=== PATIENT | female | born 1935 | race Caucasian/White ===

== ENCOUNTER 2020-10-22 21:40 | Inpatient (IN) | payer MEDICARE ==
[2020-10-22 22:32] LABS: Basophils % (A) 0 %; Eosinophils # (A) 0.2 k/uL (0-0.7); Eosinophils % (A) 1 %; HCT 44.8 % (34.0-46.0); HGB 14.6 gm/dL (11.4-16.0); Lymphocytes # (A) 1.1 k/uL (1.0-4.8); Lymphocytes % (A) 6 %; MCH 29.7 pg (25.0-35.0); MCHC 32.7 g/dL (31.0-37.0); MCV 90.9 fL (80.0-100.0); Mean Platelet Volume 7.6; Monocytes # (A) 0.3 k/uL (0-1.0); Monocytes % (A) 2 %; Neutrophils # (A) 15.7 k/uL (1.3-7.7); Neutrophils % (A) 91 %; Platelet Count 276 k/uL (150-450); RBC 4.92 m/uL (3.80-5.40); RDW 13.4 % (11.5-15.5); WBC 17.2 k/uL (3.8-10.6)
--- NOTE | 2020-10-22 22:37 | XR ---
EXAMINATION TYPE: XR KUB DATE OF EXAM: 10/22/2020 COMPARISON: NONE HISTORY: Nausea and vomiting TECHNIQUE: Single view FINDINGS: Bowel gas pattern is normal. There is no sign of intestinal obstruction or pneumoperitoneum . Fecal pattern is normal. There is no evidence of a mass. Lung bases are clear. There is thoracolumb ar levoscoliosis. IMPRESSION: Nonacute abdomen.
[2020-10-22 22:42] LABS: Albumin 4.6 g/dL (3.5-5.0); Potassium 4.4 mmol/L (3.5-5.1); Total Bilirubin 0.4 mg/dL (0.2-1.3); Total Protein 7.8 g/dL (6.3-8.2)
[2020-10-22] MEDS ORDERED: ONDANSETRON 4 MG/2 ML VIAL IVP STA (22:58)
[2020-10-22 23:01] LABS: Appearance,Urine Clear (Clear); Bilirubin,Urine Negative (Negative); Blood,Urine Small (Negative); Color,Urine Yellow; Glucose,Urine (UA) Negative (Negative); Hyaline Casts,Urine 4 /lpf (0-2); Ketones,Urine Negative (Negative); Leukocyte Esterase,Urine Small (Negative); Mucus,Urine Rare /hpf; Nitrite,Urine Negative (Negative); Protein,Urine Trace (Negative); RBC,Urine 5 /hpf (0-5); Squamous Epithelial Cell,Urine 1 /hpf (0-4); Urobilinogen,Urine <2.0 mg/dL (<2.0); WBC,Urine 4 /hpf (0-5)
--- NOTE | 2020-10-22 23:39 | ED ---
Abdominal Pain HPI - General Chief Complaint: Abdominal Pain Stated Complaint: Abd Pain Time Seen by Provider: 10/22/20 21:50 Source: patient Mode of arrival: ambulatory Limitations: no limitations - History of Present Illness Initial Comments: This patient is an 85-year-old woman who presents to be evaluated for abdominal pain. The patient states that she had been in her usual state of health until yesterday. She states that she eaten pizza which she usually does not like. Later at night she was feeling some mild discomfort in the epigastric/upper abdominal area. She states that she has been having episodic abdominal pain which is now lower in the abdomen, she indicates the periumbilical area and also to some extent all across the lower abdomen. She did have some nausea and has had some dry heaves. She has not noted a bowel movement or much flatus for past 2 days. No change in urination. MD Complaint: abdominal pain Onset/Timin -: days(s) Location: epigastric Migration to: periumbilical Severity: mild Quality: cramping, fullness Consistency: colicky Improves With: nothing Worsens With: nothing Associated Symptoms: nausea, vomiting - Related Data Home Medications Medication Instructions Recorded Confirmed ALPRAZolam [Xanax] 0.25 mg PO BID PRN 10/22/20 10/22/20 ALPRAZolam [Xanax] 0.25 mg PO HS 10/22/20 10/22/20 Cyanocobalamin [Vitamin B-12] 500 mcg PO HS 10/22/20 10/22/20 Losartan Potassium [Cozaar] 50 mg PO BID 10/22/20 10/22/20 Vitamin C/Biotin [Hair, Skin and 1 tab PO HS 10/22/20 10/22/20 Nails] Allergies Allergy/AdvReac Type Severity Reaction Status Date / Time acetaminophen Allergy Unknown Verified 10/22/20 23:07 alcohol Allergy Rash/Hives Verified 10/22/20 23:07 morphine Allergy Rash/Hives Verified 10/22/20 23:07 propoxyphene [From Darvon] Allergy Unknown Verified 10/22/20 23:07 Review of Systems ROS Statement: Those systems with pertinent positive or pertinent negative responses have been documented in the HPI. ROS Other: All systems not noted in ROS Statement are negative. Constitutional: Denies: fever, chills Respiratory: Denies: cough, dyspnea Cardiovascular: Denies: chest pain, palpitations, edema Gastrointestinal: Reports: as per HPI, abdominal pain, nausea, vomiting, constipation. Denies: diarrhea, melena, hematochezia Genitourinary: Denies: dysuria, hematuria Musculoskeletal: Denies: back pain Skin: Denies: rash Neurological: Denies: headache, weakness, numbness Past Medical History Past Medical History: Hypertension History of Any Multi-Drug Resistant Organisms: None Reported Past Surgical History: No Surgical Hx Reported Past Psychological History: Depression Smoking Status: Never smoker Past Alcohol Use History: None Reported Past Drug Use History: None Reported General Exam Limitations: no limitations General appearance: alert, in no apparent distress Head exam: Present: atraumatic, normocephalic Eye exam: Present: normal appearance. Absent: scleral icterus, conjunctival injection ENT exam: Present: normal oropharynx Respiratory exam: Present: normal lung sounds bilaterally. Absent: respiratory distress, wheezes, rales, rhonchi, stridor Cardiovascular Exam: Present: normal rhythm, tachycardia, systolic murmur. Absent: diastolic murmur, rubs, gallop GI/Abdominal exam: Present: soft, hypoactive bowel sounds. Absent: distended, tenderness, guarding, rebound, rigid, mass, pulsatile mass, hernia Extremities exam: Present: normal inspection, normal capillary refill. Absent: pedal edema, calf tenderness Back exam: Present: normal inspection. Absent: CVA tenderness (R), CVA tenderness (L), vertebral tenderness Neurological exam: Present: alert Skin exam: Present: warm, dry, intact, normal color. Absent: rash Course Vital Signs 10/22/20 10/22/20 21:44 23:49 Temperature 98.0 F Pulse Rate 134 H 117 H Respiratory 18 18 Rate Blood Pressure 164/85 151/74 O2 Sat by Pulse 97 97 Oximetry Medical Decision Making - Lab Data Result diagrams: 10/22/20 22:22 10/22/20 22:22 Lab Results 10/22/20 10/22/20 10/22/20 Range/Units 22:22 22:22 22:22 WBC 17.2 H (3.8-10.6) k/uL RBC 4.92 (3.80-5.40) m/uL Hgb 14.6 (11.4-16.0) gm/dL Hct 44.8 (34.0-46.0) % MCV 90.9 (80.0-100.0) fL MCH 29.7 (25.0-35.0) pg MCHC 32.7 (31.0-37.0) g/dL RDW 13.4 (11.5-15.5) % Plt Count 276 (150-450) k/uL MPV 7.6 Neutrophils % 91 % Lymphocytes % 6 % Monocytes % 2 % Eosinophils % 1 % Basophils % 0 % Neutrophils # 15.7 H (1.3-7.7) k/uL Lymphocytes # 1.1 (1.0-4.8) k/uL Monocytes # 0.3 (0-1.0) k/uL Eosinophils # 0.2 (0-0.7) k/uL Basophils # 0.0 (0-0.2) k/uL Sodium 136 L (137-145) mmol/L Potassium 4.4 (3.5-5.1) mmol/L Chloride 103 (98-107) mmol/L Carbon Dioxide 22 (22-30) mmol/L Anion Gap 11 mmol/L BUN 22 H (7-17) mg/dL Creatinine 0.79 (0.52-1.04) mg/dL Est GFR (CKD-EPI)AfAm 80 (>60 ml/min/1.73 sqM) Est GFR (CKD-EPI)NonAf 69 (>60 ml/min/1.73 sqM) Glucose 152 H (74-99) mg/dL Plasma Lactic Acid Jose 1.4 (0.7-2.0) mmol/L Calcium 10.0 (8.4-10.2) mg/dL Total Bilirubin 0.4 (0.2-1.3) mg/dL AST 30 (14-36) U/L ALT 18 (4-34) U/L Alkaline Phosphatase 68 (38-126) U/L Troponin I (0.000-0.034) ng/mL Total Protein 7.8 (6.3-8.2) g/dL Albumin 4.6 (3.5-5.0) g/dL Amylase 93 (30-110) U/L Lipase 146 (23-300) U/L Urine Color Urine Appearance (Clear) Urine pH (5.0-8.0) Ur Specific Toyah (1.001-1.035) Urine Protein (Negative) Urine Glucose (UA) (Negative) Urine Ketones (Negative) Urine Blood (Negative) Urine Nitrite (Negative) Urine Bilirubin (Negative) Urine Urobilinogen (<2.0) mg/dL Ur Leukocyte Esterase (Negative) Urine RBC (0-5) /hpf Urine WBC (0-5) /hpf Ur Squamous Epith Cells (0-4) /hpf Hyaline Casts (0-2) /lpf Urine Mucus (None) /hpf 10/22/20 10/22/20 Range/Units 22:22 22:54 WBC (3.8-10.6) k/uL RBC (3.80-5.40) m/uL Hgb (11.4-16.0) gm/dL Hct (34.0-46.0) % MCV (80.0-100.0) fL MCH (25.0-35.0) pg MCHC (31.0-37.0) g/dL RDW (11.5-15.5) % Plt Count (150-450) k/uL MPV Neutrophils % % Lymphocytes % % Monocytes % % Eosinophils % % Basophils % % Neutrophils # (1.3-7.7) k/uL Lymphocytes # (1.0-4.8) k/uL Monocytes # (0-1.0) k/uL Eosinophils # (0-0.7) k/uL Basophils # (0-0.2) k/uL Sodium (137-145) mmol/L Potassium (3.5-5.1) mmol/L Chloride (98-107) mmol/L Carbon Dioxide (22-30) mmol/L Anion Gap mmol/L BUN (7-17) mg/dL Creatinine (0.52-1.04) mg/dL Est GFR (CKD-EPI)AfAm (>60 ml/min/1.73 sqM) Est GFR (CKD-EPI)NonAf (>60 ml/min/1.73 sqM) Glucose (74-99) mg/dL Plasma Lactic Acid Jose (0.7-2.0) mmol/L Calcium (8.4-10.2) mg/dL Total Bilirubin (0.2-1.3) mg/dL AST (14-36) U/L ALT (4-34) U/L Alkaline Phosphatase (38-126) U/L Troponin I <0.012 (0.000-0.034) ng/mL Total Protein (6.3-8.2) g/dL Albumin (3.5-5.0) g/dL Amylase (30-110) U/L Lipase (23-300) U/L Urine Color Yellow Urine Appearance Clear (Clear) Urine pH 5.0 (5.0-8.0) Ur Specific Toyah 1.020 (1.001-1.035) Urine Protein Trace H (Negative) Urine Glucose (UA) Negative (Negative) Urine Ketones Negative (Negative) Urine Blood Small H (Negative) Urine Nitrite Negative (Negative) Urine Bilirubin Negative (Negative) Urine Urobilinogen <2.0 (<2.0) mg/dL Ur Leukocyte Esterase Small H (Negative) Urine RBC 5 (0-5) /hpf Urine WBC 4 (0-5) /hpf Ur Squamous Epith Cells 1 (0-4) /hpf Hyaline Casts 4 H (0-2) /lpf Urine Mucus Rare H (None) /hpf - EKG Data -: EKG Interpreted by Ct EKG shows normal: sinus rhythm, axis (Normal), intervals (Normal), QRS complexes (Normal), ST-T waves (Normal) Rate: tachycardia (Rate 117 bpm) Disposition Clinical Impression: Abdominal pain, Partial bowel obstruction Disposition: ADMITTED IP TO THIS HOSP Condition: Fair Is patient prescribed a controlled substance at d/c from ED?: No Referrals: Vidal Beaulieu MD [Primary Care Provider] - 1-2 days
--- NOTE | 2020-10-22 23:56 | CT ---
EXAMINATION TYPE: CT abdomen pelvis w con DATE OF EXAM: 10/22/2020 COMPARISON: None HISTORY: Upper abdominal pain CT DLP: 573.6 mGycm Automated exposure control for dose reduction was used. CONTRAST: Performed with IV Contrast, patient injected with 100 mL of Isovue 300. Images were obtained from the diaphragm to the floor the pelvis with IV contrast. FINDINGS: Lung bases are clear. There is no pleural effusion. Heart size is normal. There is no pericardial eff usion. Liver spleen stomach pancreas appear intact. Bile ducts are not dilated. There is 2 cm densely calcif ied gallstone. There is no adrenal mass. Kidneys show satisfactory contrast opacification. There is no hydronephrosi s. Ureters are not dilated. There is no retroperitoneal adenopathy. Abdominal aorta is atheromatous. Bladder distends smoothly. There is no inguinal hernia. There are multiple dilated fluid-filled loops of small bowel in the mid abdomen. There is free fluid in the pelvis. The terminal ileum is not dila marlen. Appendix is partly filled with air and appears normal. Appendix is posterior and medial. Transit ion point not identified. There is L4-5 and L5-S1 mild subluxation deformity. There is no lumbar compression fracture. There is mild thoracolumbar levoscoliosis. The bony pelvis is intact. IMPRESSION: Cholelithiasis. No dilated ducts. No renal stone or obstruction. Dilated small bowel suggestive of ileus or partial mechanical small bowel obstruction. Transition poi nt not identified. Normal appendix. Mild free fluid in the pelvis.
[2020-10-23] MEDS ORDERED: fentaNYL (PF) 50 MCG/ML 2 ML AMP IV STA (00:04)
[2020-10-23] MEDS ORDERED: NALOXONE 0.4 MG/ML 1 ML VIAL IV PRN (00:17)
[2020-10-23] MEDS ORDERED: SODIUM CHLORIDE 0.9% 1,000 ML IV SCH (00:30)
--- NOTE | 2020-10-23 00:50 | XR ---
EXAM: XR Chest, 1 View CLINICAL HISTORY: ITS.REASON XR Reason: NG placement TECHNIQUE: Frontal view of the chest. COMPARISON: No previous study. FINDINGS: Lungs: Lungs are well aerated. Pleural space: Unremarkable. No pneumothorax. Heart: Cardiomediastinal silhouette is unremarkable. Mediastinum: See above. Bones/joints: Osteopenia. Vasculature: Atherosclerotic disease of the aortic knob. Tubes, lines and devices: NG tube is noted in place with its tip well below the diaphragm. IMPRESSION: NG tube is noted in place and in good position.
[2020-10-23] MEDS ORDERED: fentaNYL (PF) 50 MCG/ML 2 ML AMP IVP PRN (01:09)
[2020-10-23] MEDS: SODIUM CHLORIDE 0.9% 1,000 ML IV SCH ×2 (01:09→11:36)
[2020-10-23] MEDS ORDERED: ONDANSETRON 4 MG/2 ML VIAL IVP PRN (01:31)
--- NOTE | 2020-10-23 01:34 | P.HPIM ---
History of Present Illness H&P Date: 10/23/20 The patient is an 85 yo F with a PMH of HTN who presented to the ED with complaints of abdominal pain with nausea and vomiting. The patient notes that she was in her usual state of health until earlier today when she suddenly developed diffuse abdominal pain, cramping in nature, 8 out of 10, with a ssociated nausea and 5 total episodes of nonbloody vomiting throughout the day. She notes that she has not been able to eat or drink much due to this. Patient reports that she normally has a bowel movement daily and has no prior history of abdominal surgeries. Reports her last bowel movement earlier today which was soft. At time of interview, the patient reported her pain had improved to a 3 o ut of 10. He denied fever, chills, cough, chest pain, shortness of breath. In the emergency room, CT abdomen and pelvis revealed cholelithiasis, with dilated small bowel suggestive of ileus versus partial small bowel obstruction with no transition point identified. EKG reveals sinus tachycardia at 117 bpm. Laboratory evaluation was remarkable for WBC count of 17.2, sodium 136, BUN 22, glucose 152, lactic acid 1.4, and a troponin less than 0.012. Review of Systems Pertinent positives and negatives as discussed in HPI, a complete review of systems was performed and all other systems are negative. Past Medical History Past Medical History: Hypertension History of Any Multi-Drug Resistant Organisms: None Reported Past Surgical History: No Surgical Hx Reported Past Psychological History: Depression Smoking Status: Never smoker Past Alcohol Use History: None Reported Past Drug Use History: None Reported Medications and Allergies Home Medications Medication Instructions Recorded Confirmed Type ALPRAZolam [Xanax] 0.25 mg PO BID PRN 10/22/20 10/22/20 History ALPRAZolam [Xanax] 0.25 mg PO HS 10/22/20 10/22/20 History Cyanocobalamin [Vitamin B-12] 500 mcg PO HS 10/22/20 10/22/20 History Losartan Potassium [Cozaar] 50 mg PO BID 10/22/20 10/22/20 History Vitamin C/Biotin [Hair, Skin and 1 tab PO HS 10/22/20 10/22/20 History Nails] Allergies Allergy/AdvReac Type Severity Reaction Status Date / Time acetaminophen Allergy Unknown Verified 10/22/20 23:07 alcohol Allergy Rash/Hives Verified 10/22/20 23:07 morphine Allergy Rash/Hives Verified 10/22/20 23:07 propoxyphene [From Darvon] Allergy Unknown Verified 10/22/20 23:07 Physical Exam Vitals: Vital Signs Temp Pulse Resp BP Pulse Ox 10/22/20 23:49 117 H 18 151/74 97 10/22/20 21:44 98.0 F 134 H 18 164/85 97 Intake and Output 10/22/20 10/22/20 10/23/20 14:59 22:59 06:59 Other: Weight 46.72 kg General: non toxic, no distress, appears younger than stated age, normal weight, NG tube in place Derm: no unusual rashes/lesions no unusual ecchymoses, warm, dry Head: atraumatic, normocephalic, symmetric Eyes: EOMI, no lid lag, anicteric sclera, pupils equal round reactive to light ENT: Nose and ears atraumatic, no thrush, no pharyngeal erythema Neck: No thyromegaly, no cervical lymphadenopathy, trachea midline, supple Mouth: no lip lesion, mucus membranes moist Cardiovascular: S1S2 reg, no murmur, positive posterior tibial pulse bilateral, no edema, capillary refill less than 2 seconds Lungs: CTA bilateral, no rhonchi, no rales , no accessory muscle use Abdominal: soft, nontender to palpation, no guarding, no appreciable organomegaly, normal bowel sounds Ext: no gross muscle atrophy, muscle strength 5 out of 5 in all 4 extremities grossly, no contractures, Neuro: CN II-XI grossly intact, light touch intact all 4 extremities, finger to nose within normal limits, Psych: Alert, oriented, appropriate affect Results CBC & Chem 7: 10/22/20 22:22 10/22/20 22:22 Labs: Abnormal Lab Results - Last 24 Hours (Table) 10/22/20 10/22/20 10/22/20 Range/Units 22:22 22:22 22:54 WBC 17.2 H (3.8-10.6) k/uL Neutrophils # 15.7 H (1.3-7.7) k/uL Sodium 136 L (137-145) mmol/L BUN 22 H (7-17) mg/dL Glucose 152 H (74-99) mg/dL Urine Protein Trace H (Negative) Urine Blood Small H (Negative) Ur Leukocyte Esterase Small H (Negative) Hyaline Casts 4 H (0-2) /lpf Urine Mucus Rare H (None) /hpf Assessment and Plan Plan: Abdominal pain with nausea vomiting, suspected partial small bowel obstruction -Surgery consulted -Continue with NG tube with suctioning -Nothing by mouth -IV fluids -Pain control -Antiemetics Leukocytosis -Likely secondary to acute stressor -Monitor for now Hyperglycemia -Check A1c Chronic conditions: Hypertension -C/w home meds DVT prophylaxis -Heparin subq The patient is admitted with an anticipated greater than 2 midnight stay for evaluation of abdominal pain CODE STATUS: Full Code Discussed with: Patient Anticipated discharge date: 2-[address]: Home A total of 40 minutes was spent on the care of this complex patient more than 50% of the time was spent in counseling and care coordination.
[2020-10-23] MEDS ORDERED: KETOROLAC 15 MG/ML 1 ML VIAL IVP STA (02:10)
[2020-10-23 06:05] LABS: HCT 42.9 % (34.0-46.0); HGB 14.2 gm/dL (11.4-16.0); MCH 30.1 pg (25.0-35.0); MCHC 33.2 g/dL (31.0-37.0); MCV 90.8 fL (80.0-100.0); Mean Platelet Volume 7.4; Platelet Count 269 k/uL (150-450); RBC 4.73 m/uL (3.80-5.40); WBC 13.6 k/uL (3.8-10.6)
[2020-10-23] MEDS: HEPARIN SODIUM,PORCINE 5,000 UNIT/ML 1 ML VIAL SQ SCH ×3 (07:49→22:43)
[2020-10-23] MEDS: PANTOPRAZOLE 40 MG/10 ML VIAL IV SCH (07:49)
[2020-10-23] MEDS: LOSARTAN 50 MG TAB PO SCH ×2 (07:49→20:07)
--- NOTE | 2020-10-23 10:47 | P.GSCN ---
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 Pain started in the epigastric region but radiated down to the mid abdomen. Pain is mostly gone at this time. Has not required any narcotics. She has had intermittent episodes of constipation over the last 3 years. She was advised after a CAT scan showed a possible bowel obstruction of some type to have a colonoscopy within the last few years but the patient declined. She says she did have a cologuard that was negative. Patient said she ate 2 pieces of pizza and some [employer] cookies which is more than she usually eats. It was after that that her symptoms began. Her white blood cell count on arrival was elevated at 17. Repeat today is 13. She has been tachycardic. She says her heart rate always runs high. EKG showed sinus tachycardia. Lactic acid was normal. CAT scan was reviewed. Patient has segment of small bowel that is dilated. No definite transition point was seen. Ileus versus small bowel obstruction suspected per radiology. Patient with no previous abdominal surgeries. Again states she had a previous CAT scan showing a bowel obstruction of some type. This previous CAT scan was a few years ago at [facility]. Review of Systems The patient denies any acute changes in vision or hearing, no dysphagia or odynophagia, no chest pain or shortness of breath, no dysuria or hematuria, no headache, no runny nose, no rectal bleeding or melena, no unexplained weight loss Past Medical History Past Medical History: Hypertension History of Any Multi-Drug Resistant Organisms: None Reported Past Surgical History: No Surgical Hx Reported Past Psychological History: Depression Smoking Status: Never smoker Past Alcohol Use History: None Reported Past Drug Use History: None Reported Medications and Allergies Home Medications Medication Instructions Recorded Confirmed Type ALPRAZolam [Xanax] 0.25 mg PO BID PRN 10/22/20 10/22/20 History ALPRAZolam [Xanax] 0.25 mg PO HS 10/22/20 10/22/20 History Cyanocobalamin [Vitamin B-12] 500 mcg PO HS 10/22/20 10/22/20 History Losartan Potassium [Cozaar] 50 mg PO BID 10/22/20 10/22/20 History Vitamin C/Biotin [Hair, Skin and 1 tab PO HS 10/22/20 10/22/20 History Nails] Allergies Allergy/AdvReac Type Severity Reaction Status Date / Time acetaminophen Allergy Unknown Verified 10/22/20 23:07 alcohol Allergy Rash/Hives Verified 10/22/20 23:07 morphine Allergy Rash/Hives Verified 10/22/20 23:07 propoxyphene [From Darvon] Allergy Unknown Verified 10/22/20 23:07 Surgical - Exam Vital Signs Temp Pulse Resp BP Pulse Ox 98.0 F 134 H 18 164/85 97 10/22/20 21:44 10/22/20 21:44 10/22/20 21:44 10/22/20 21:44 10/22/20 21:44 Physical exam: General: Well-developed, well-nourished HEENT: Normocephalic, sclerae nonicteric Abdomen: Mild distention, mild diffuse tenderness, no rebound or guarding, bowel sounds present Extremities: No edema Neuro: Alert and oriented Results - Labs 10/23/20 05:49 10/22/20 22:22 Abnormal Lab Results - Last 24 Hours (Table) 10/22/20 10/22/20 10/22/20 Range/Units 22:22 22:22 22:54 WBC 17.2 H (3.8-10.6) k/uL Neutrophils # 15.7 H (1.3-7.7) k/uL Sodium 136 L (137-145) mmol/L BUN 22 H (7-17) mg/dL Glucose 152 H (74-99) mg/dL Urine Protein Trace H (Negative) Urine Blood Small H (Negative) Ur Leukocyte Esterase Small H (Negative) Hyaline Casts 4 H (0-2) /lpf Urine Mucus Rare H (None) /hpf 10/23/20 Range/Units 05:49 WBC 13.6 H (3.8-10.6) k/uL Neutrophils # (1.3-7.7) k/uL Sodium (137-145) mmol/L BUN (7-17) mg/dL Glucose (74-99) mg/dL Urine Protein (Negative) Urine Blood (Negative) Ur Leukocyte Esterase (Negative) Hyaline Casts (0-2) /lpf Urine Mucus (None) /hpf Diabetes panel 10/22/20 Range/Units 22:22 Sodium 136 L (137-145) mmol/L Potassium 4.4 (3.5-5.1) mmol/L Chloride 103 (98-107) mmol/L Carbon Dioxide 22 (22-30) mmol/L BUN 22 H (7-17) mg/dL Creatinine 0.79 (0.52-1.04) mg/dL Glucose 152 H (74-99) mg/dL Calcium 10.0 (8.4-10.2) mg/dL AST 30 (14-36) U/L ALT 18 (4-34) U/L Alkaline Phosphatase 68 (38-126) U/L Total Protein 7.8 (6.3-8.2) g/dL Albumin 4.6 (3.5-5.0) g/dL Calcium panel 10/22/20 Range/Units 22:22 Calcium 10.0 (8.4-10.2) mg/dL Albumin 4.6 (3.5-5.0) g/dL Pituitary panel 10/22/20 Range/Units 22:22 Sodium 136 L (137-145) mmol/L Potassium 4.4 (3.5-5.1) mmol/L Chloride 103 (98-107) mmol/L Carbon Dioxide 22 (22-30) mmol/L BUN 22 H (7-17) mg/dL Creatinine 0.79 (0.52-1.04) mg/dL Glucose 152 H (74-99) mg/dL Calcium 10.0 (8.4-10.2) mg/dL Adrenal panel 10/22/20 Range/Units 22:22 Sodium 136 L (137-145) mmol/L Potassium 4.4 (3.5-5.1) mmol/L Chloride 103 (98-107) mmol/L Carbon Dioxide 22 (22-30) mmol/L BUN 22 H (7-17) mg/dL Creatinine 0.79 (0.52-1.04) mg/dL Glucose 152 H (74-99) mg/dL Calcium 10.0 (8.4-10.2) mg/dL Total Bilirubin 0.4 (0.2-1.3) mg/dL AST 30 (14-36) U/L ALT 18 (4-34) U/L Alkaline Phosphatase 68 (38-126) U/L Total Protein 7.8 (6.3-8.2) g/dL Albumin 4.6 (3.5-5.0) g/dL Assessment and Plan (1) Partial bowel obstruction Narrative/Plan: 85-year-old female with possible PSBO versus ileus. Options of diagnostic laparoscopy followed by possible laparotomy versus observation with small bowel series tomorrow morning reviewed. Patient would like to avoid surgery if at all possible. Case also discussed with the patient's niece who is a nurse that works for [employer]. At this time we'll keep nothing by mouth. Continue nasogastric tube to suction. Begin empiric antibiotics given the leukocytosis. Consider cardiology consultation for persistent tachycardia. We'll order small bowel series for tomorrow. Certainly if bowel obstruction identified given the lack of prior surgeries would recommend laparoscopy versus laparotomy at that time. Patient informed that I will be out of town after today. Will discuss with Dr. Griffith in a.m. Current Visit: Yes Status: Acute Code(s): K56.600 - PARTIAL INTESTINAL OBSTRUCTION, UNSPECIFIED TO CAUSE SNOMED Code(s): [id number]
[2020-10-23 11:18] LABS: African American GFR (CKD) 67.6 (60.0-200.0); Albumin 3.8 g/dL (3.80-4.90); Albumin/Globulin Ratio 1.81 (1.60-3.17); Anion Gap 7.1 mmol/L (4.00-12.00); BUN/Creat Ratio 26.67 Ratio (12.00-20.00); Calcium 8.9 mg/dL (8.7-10.3); Carbon Dioxide 24.9 mmol/L (21.6-31.8); Globulin 2.1 g/dL (1.6-3.3); Non-African American GFR(CKD) 58.3 (60.0-200.0); Potassium 4.4 mmol/L (3.5-5.5); Total Bilirubin 0.4 mg/dL (0.2-1.2); Total Protein 5.9 g/dL (6.2-8.2)
[2020-10-23] MEDS: PIPERACILLIN-TAZOBACTAM 3.375 GM in SODIUM CHLORIDE 0.9% 100 ML IVPB SCH ×2 (11:34→20:07)
--- NOTE | 2020-10-23 12:58 | P.PN ---
Progress Note - Text Progress Note Date: 10/23/20 Hospitalist Interval Note Patient seen and examined at bedside. Had 2 episodes of chest twinges, no palpitation, no shortness of breath, no diaphoresis, no lightheadedness, no dizziness, Vital signs reviewed General: non toxic, no distress, appears at stated age Derm: warm, dry Head: atraumatic, normocephalic, symmetric Eyes: EOMI, no lid lag, anicteric sclera Mouth: no lip lesion, mucus membranes moist Cardiovascular: S1S2 reg, no murmur, positive posterior tibial pulse bilateral, Lungs: Decreased bs bilateral, no rhonchi, no rales , no accessory muscle use Abdominal: soft, + tender to palpation LLQ and RLQ, no guarding, no appreciable organomegaly Ext: no gross muscle atrophy, no edema, no contractures Neuro: CN II-XI grossly intact, no focal neuro deficits Psych: Alert, oriented, appropriate affect Assessment/Plan: 1. SBO- NGT in placed, surgery following 2. Sinus Tachycardia- checked EKG, Tele, Electrolytes normal, continue with IVF, check magnesium level This is an update note for patient , for full note on 10/23/20 see H and P. There is no charge associated with this note.
[2020-10-23] MEDS: KETOROLAC 15 MG/ML 1 ML VIAL IVP PRN ×2 (15:31→22:43)
[2020-10-23] MEDS ORDERED: METOCLOPRAMIDE 5 MG/ML 2 ML VIAL IVP PRN (16:12)
--- NOTE | 2020-10-23 16:12 | P.OP ---
Date of Procedure: 10/23/20 Procedure(s) Performed: PREOPERATIVE DIAGNOSIS: Colonic obstruction POSTOPERATIVE DIAGNOSIS: Same secondary to descending colon constipation PROCEDURE: Partial colectomy with end colostomy, lysis of adhesions SURGEON: Itzel EBL: 50 mL ANESTHESIA: General COMPLICATIONS: None OPERATIVE PROCEDURE: Patient place in the operative table in the supine position. The patient was placed under general anesthesia. The abdomen was prepped and draped in usual sterile fashion. A vertical incision was made encompassing extending from the epigastric region to the supraumbilical location. The fascia was divided as well. No free fluid in the abdomen was seen. The patient had extensive adhesions between the omentum and the abdominal wall in the infraumbilical location that limited our visualization of the abdomen. Careful dissection of the adhesions took place using electrocautery and sharp dissection. There were some adhesions between the bowel loops and the abdominal wall inferiorly as well. Once we had adequate space the Bookwalter retractor was utilized. The transverse colon was distended. The descending colon was followed to a site in the mid descending colon where there was a very hard piece of stool present. This was causing some degree of ischemic change to the colon in that location however no perforation was identified. As I tried to milk this distally we met some resistance and was decided at this time to proceed with partial colectomy. The bowel was divided distal to the obstructed segment using a linear 75 stapler. The splenic flexure was fully mobilized using both electrocautery and blunt dissection and the LigaSure device. The mesentery of the descending colon and splenic flexure region was divided using the LigaSure device. No bleeding was seen along the mesenteric dissection. Once I had enough length on the colon the abdomen was irrigated with saline. No bleeding was seen at that time. A circular incision was made in the left upper abdomen. Dissection through the subcutaneous fat and fascia took place using electrocautery. I bluntly entered the perineal cavity and this was further bluntly opened. The bowel was brought out through this defect in the left midabdomen. The midline fascia was then reapproximated using 3 separate double- stranded #1 PDS sutures. The subcutaneous tissues were irrigated. The subcutaneous tissues were closed using 3-0 Vicryl sutures. The skin was then closed using chris. The ostomy was then addressed. The bowel was divided just above the level of the skin using electrocautery and the LigaSure device. Bleeding was seen from the cut edge. The ostomy was then matured in a [place] fashion using interrupted 3-0 Vicryl sutures. An ostomy appliance was then applied. Sterile dressings were then applied to the midline incision. DISPOSITION: Stable to recovery room. I called the patient's sister Oriana by phone. No answer was obtained. I left a message regarding the surgical procedure with Oriana.
[2020-10-23] MEDS: ALPRAZolam 0.25 MG TAB PO SCH ×2 (20:07→22:44)
[2020-10-23 22:26] LABS: Hemoglobin A1C 5.8 % (4.0-6.0)
[2020-10-24] MEDS: PIPERACILLIN-TAZOBACTAM 3.375 GM in SODIUM CHLORIDE 0.9% 100 ML IVPB SCH ×3 (04:43→22:45)
[2020-10-24] MEDS: SODIUM CHLORIDE 0.9% 1,000 ML IV SCH ×3 (04:43→15:23)
[2020-10-24 06:40] LABS: Basophils # (A) 0.1 k/uL (0-0.2); Basophils % (A) 0 %; Eosinophils # (A) 0.1 k/uL (0-0.7); Eosinophils % (A) 1 %; HCT 42.2 % (34.0-46.0); HGB 13.5 gm/dL (11.4-16.0); Lymphocytes # (A) 1.1 k/uL (1.0-4.8); Lymphocytes % (A) 9 %; MCH 29.8 pg (25.0-35.0); MCHC 32.1 g/dL (31.0-37.0); Mean Platelet Volume 7.9; Monocytes # (A) 0.8 k/uL (0-1.0); Monocytes % (A) 6 %; Neutrophils # (A) 10.5 k/uL (1.3-7.7); Neutrophils % (A) 83 %; Platelet Count 271 k/uL (150-450); RBC 4.54 m/uL (3.80-5.40); RDW 13.4 % (11.5-15.5); WBC 12.6 k/uL (3.8-10.6)
[2020-10-24] MEDS: PANTOPRAZOLE 40 MG/10 ML VIAL IV SCH (07:55)
[2020-10-24] MEDS: LOSARTAN 50 MG TAB PO SCH ×2 (07:55→22:48)
[2020-10-24] MEDS: HEPARIN SODIUM,PORCINE 5,000 UNIT/ML 1 ML VIAL SQ SCH ×3 (07:55→23:44)
[2020-10-24] MEDS: KETOROLAC 15 MG/ML 1 ML VIAL IVP PRN ×2 (11:15→22:46)
--- NOTE | 2020-10-24 14:03 | P.PN ---
Subjective Progress Note Date: 10/24/20 CHIEF COMPLAINT: Abdominal pain HISTORY OF PRESENT ILLNESS: Patient is being followed for ileus versus partial small bowel obstruction. She currently has NG tube in place with 100 mL of greenish output. Patient reports abdominal pain mostly in the middle of her abdomen. She states that the pain is better than it was on admission. However, she is still feeling very distended. She denies any nausea. She denies any bowel movement or passing of gas. Afebrile. WBC 4.6. Small bowel follow- through results are pending. Patient's tachycardia has improved. PHYSICAL EXAM: VITAL SIGNS: Reviewed. GENERAL: Well-developed in no acute distress. HEENT: No sclera icterus. Extraocular movements grossly intact. Moist buccal mucosa. Head is atraumatic, normocephalic. ABDOMEN: Soft. Distended. Tender with palpation of the mid abdomen NEUROLOGIC: Alert and oriented. Cranial nerves II through XII grossly intact. ASSESSMENT: 1. Possible partial small bowel obstruction versus ileus PLAN: -Follow up on results of small bowel follow-through -Continue NG tube for decompression -Continue antibiotics -Continue IV fluids -Continue GI prophylaxis Protonix and DVT prophylaxis subcu heparin Physician Decision Unit Rn note has been reviewed by physician. Signing provider agrees with the documented findings, assessment, and plan of care. Objective - Vital Signs Vital signs: Vital Signs Temp 98.4 F 10/24/20 07:35 Pulse 86 10/24/20 07:35 Resp 16 10/24/20 07:35 BP 135/76 10/24/20 07:35 Pulse Ox 94 L 10/24/20 07:35 Intake & Output 10/23/20 10/24/20 10/24/20 18:59 06:59 18:59 Output Total 100 Balance -100 Output: Gastric Drainage 100 Other: Voiding Method Toilet Toilet # Voids 1 - Labs CBC & Chem 7: 10/24/20 05:39 10/23/20 05:49 Labs: Abnormal Lab Results - Last 24 Hours (Table) 10/24/20 Range/Units 05:39 WBC 12.6 H (3.8-10.6) k/uL Neutrophils # 10.5 H (1.3-7.7) k/uL
--- NOTE | 2020-10-24 21:44 | P.PN ---
Progress Note - Text Progress Note Date: 10/24/20 Presenting complaint: Abdominal pain Interval history: Patient presented 1 day of abdominal pain. Admitted with a diagnosis of partial small bowel obstruction. NG tube was placed. Today-laying in bed. NG tube to suction. Abdominal pain present. Small amount of flatus no fever no chills Review of systems: Was done for constitutional, cardiovascular, GI, pulmonary. relevant finding as above On examination: VITAL SIGNS: 98.4, 86, 16, 135/76, 94% room air GENERAL APPEARANCE: BMI 20.8, laying in bed, NG tube HEENT: Normal external appearance of nose and ear. Oral cavity dry EYES: Pupils equal. Conjunctiva normal. NECK: JVD not raised. Mass not palpable. RESPIRATORY: Respiratory effort normal. Lungs clear to auscultation. CARDIOVASCULAR: First and second sounds normal. No edema. ABDOMEN: Soft. Mild tenderness, bowel sounds sluggish Liver and spleen not palpable.. No mass palpable. PSYCHIATRY: Alert and oriented x3. Mood and affect normal. INVESTIGATIONS, reviewed in the clinical context: White count 2.6 hemoglobin 13.5 potassium 4.4 creatinine 0.9 Small bowel x-ray-small bowel distended Computed tomography scan of the abdomen-generally second-gallstones. Dilated small bowels. Assessment: -Partial small bowel obstruction versus small bowel ileus-NG tube. Slow to respond -Gallstones asymptomatic -Essential hypertension -Anxiety not otherwise specified Plan: She remains in NG tube. IV Zosyn. IV fluids. Care was discussed with the patient. Questions answered. Follow-up with surgery
[2020-10-24] MEDS: ALPRAZolam 0.25 MG TAB PO PRN (22:48)
[2020-10-25] MEDS: SODIUM CHLORIDE 0.9% 1,000 ML IV SCH ×3 (04:23→23:16)
[2020-10-25] MEDS: PIPERACILLIN-TAZOBACTAM 3.375 GM in SODIUM CHLORIDE 0.9% 100 ML IVPB SCH ×3 (04:40→20:32)
[2020-10-25] MEDS: PANTOPRAZOLE 40 MG/10 ML VIAL IV SCH (09:22)
[2020-10-25] MEDS: HEPARIN SODIUM,PORCINE 5,000 UNIT/ML 1 ML VIAL SQ SCH ×3 (09:22→23:53)
[2020-10-25] MEDS: LOSARTAN 50 MG TAB PO SCH ×2 (09:22→20:32)
--- NOTE | 2020-10-25 09:32 | FL ---
EXAMINATION TYPE: FL small bowel follow through DATE OF EXAM: 10/25/2020 CLINICAL HISTORY: 85-year-old female with distention and epigastric pain, rule out small bowel obstru ction. TECHNIQUE: A single contrast small bowel follow through is performed utilizing barium. COMPARISON: Correlation CT 10/22/2020 Total fluoroscopy time: 1 minute 14 seconds. Total images: 20 FINDINGS: Pull Over Machine Operator image of the abdomen shows small bowel loops dilated up to 4.2 cm and possibility of colonic ai r. Degenerated levoconvex scoliosis. An NG tube is present. 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 Some of the proximal most jejunal loops are not significantly dilated. There is progressive distentio n as contrast progresses with dilated loops measuring up to 4.1 cm encountered within 30 minutes of c ontrast administration. Subsequently, diffuse the dilated small bowel loops are encountered measuring up to 4.3 cm. At 23.5 hours, trace contrast has made its way into the right side of the colon. Discrete transition point is difficult to identify. Some possible caliber narrowing at the midline lower abdomen/pelvis o n image page 20. IMPRESSION: 1. Small bowel transit time of 23.5 hours with only minimal contrast making its way into the right si de of the colon and multiple dilated small bowel loops measuring up to 4.3 cm. Findings suggest ongoi ng small bowel obstruction. 2. An area of caliber narrowing along the lower midline abdomen may correspond to the questioned landa sition point on CT.
[2020-10-25 09:44] LABS: Basophils % (A) 0 %; Eosinophils # (A) 0.1 k/uL (0-0.7); Eosinophils % (A) 2 %; HCT 40.2 % (34.0-46.0); HGB 13.2 gm/dL (11.4-16.0); Lymphocytes # (A) 0.9 k/uL (1.0-4.8); Lymphocytes % (A) 11 %; MCH 30.6 pg (25.0-35.0); MCHC 32.8 g/dL (31.0-37.0); MCV 93.3 fL (80.0-100.0); Mean Platelet Volume 7.4; Monocytes # (A) 0.6 k/uL (0-1.0); Monocytes % (A) 7 %; Neutrophils # (A) 6.8 k/uL (1.3-7.7); Neutrophils % (A) 80 %; Platelet Count 250 k/uL (150-450); RBC 4.31 m/uL (3.80-5.40); RDW 13.2 % (11.5-15.5); WBC 8.5 k/uL (3.8-10.6)
[2020-10-25 09:55] LABS: African American GFR (CKD) 66 (>60 ml/min/1.73 sqM); Anion Gap 6 mmol/L; Blood Urea Nitrogen 18 mg/dL (7-17); Calcium 8.5 mg/dL (8.4-10.2); Carbon Dioxide 24 mmol/L (22-30); Chloride 110 mmol/L (98-107); Glucose 95 mg/dL (74-99); Non-African American GFR(CKD) 57 (>60 ml/min/1.73 sqM); Potassium 3.9 mmol/L (3.5-5.1); Sodium 140 mmol/L (137-145)
--- NOTE | 2020-10-25 10:29 | P.PN ---
Subjective Progress Note Date: 10/25/20 CHIEF COMPLAINT: Abdominal pain HISTORY OF PRESENT ILLNESS: Patient is being followed for ileus versus partial small bowel obstruction. She currently has NG tube in place with 400 mL of yellowish output through the night. Patient reports her abdominal pain has improved. She still feels distended, but better than on admission. She denies any nausea. She denies any bowel movement or passing of gas. Afebrile. WBC 8.5. Heart rate 110 small bowel follow-through shows it small bowel transit time of 23.5 hours with only minimal contrast making its way into the right side of the colon and multiple dilated small bowel loops measuring up to 4.3 cm. Findings suggest ongoing small bowel obstruction. PHYSICAL EXAM: VITAL SIGNS: Reviewed. GENERAL: Well-developed in no acute distress. HEENT: No sclera icterus. Extraocular movements grossly intact. Moist buccal mucosa. Head is atraumatic, normocephalic. ABDOMEN: Soft. Distended. Tender with palpation of the mid abdomen NEUROLOGIC: Alert and oriented. Cranial nerves II through XII grossly intact. ASSESSMENT: 1. Small bowel obstruction PLAN: -Patient scheduled for exploratory laparotomy tomorrow, 10/26/[address] Griffith -Continue NG tube for decompression -Continue antibiotics -Continue IV fluids -Continue GI prophylaxis Protonix and DVT prophylaxis subcu heparin Physician Narrow Fabric Calenderer note has been reviewed by physician. Signing provider agrees with the documented findings, assessment, and plan of care. Objective - Vital Signs Vital signs: Vital Signs Temp 97.9 F 10/25/20 08:00 Pulse 110 H 10/25/20 08:00 Resp 20 10/25/20 08:00 BP 121/71 10/25/20 08:00 Pulse Ox 96 10/25/20 08:00 Intake & Output 10/24/20 10/25/20 10/25/20 18:59 06:59 18:59 Output Total 400 Balance -400 Output: Gastric Drainage 400 Other: Voiding Method Toilet Toilet - Labs CBC & Chem 7: 10/25/20 09:12 10/25/20 09:12 Labs: Abnormal Lab Results - Last 24 Hours (Table) 10/25/20 10/25/20 Range/Units 09:12 09:12 Lymphocytes # 0.9 L (1.0-4.8) k/uL Chloride 110 H (98-107) mmol/L BUN 18 H (7-17) mg/dL
[2020-10-25] MEDS: KETOROLAC 15 MG/ML 1 ML VIAL IVP PRN (16:29)
[2020-10-25] MEDS: ALPRAZolam 0.25 MG TAB PO PRN (17:33)
[2020-10-25] MEDS: ALPRAZolam 0.25 MG TAB PO SCH (20:32)
--- NOTE | 2020-10-25 22:56 | P.PN ---
Progress Note - Text Progress Note Date: 10/25/20 Presenting complaint: Abdominal pain Interval history: Patient presented 1 day of abdominal pain. Admitted with a diagnosis of partial small bowel obstruction. NG tube was placed. Today-laying in bed. NG tube to suction. Abdominal pain present. No flatus. No nausea vomiting. Review of systems: Was done for constitutional, cardiovascular, GI, pulmonary. relevant finding as above Active Medications Alprazolam (Alprazolam 0.25 Mg Tab) 0.25 mg PO BID PRN PRN Reason: Anxiety Last Admin: 10/25/20 17:33 Dose: 0.25 mg Documented by: Alprazolam (Alprazolam 0.25 Mg Tab) 0.25 mg PO HS [facility] Last Admin: 10/25/20 20:32 Dose: 0.25 mg Documented by: Heparin Sodium (Porcine) (Heparin Sodium,Porcine 5,000 Unit/Ml 1 Ml Vial) 5,000 unit SQ Q8HR [facility] Last Admin: 10/25/20 16:02 Dose: 5,000 unit Documented by: Sodium Chloride (Saline 0.9%) 1,000 mls @ 100 mls/hr IV .Q10H [facility] Last Admin: 10/25/20 12:25 Dose: 100 mls/hr Documented by: Piperacillin Sod/Tazobactam (Sod 3.375 gm/ Sodium Chloride) 100 mls @ 25 mls/hr IVPB Q8H [facility] Last Admin: 10/25/20 20:32 Dose: 25 mls/hr Documented by: Ketorolac Tromethamine (Ketorolac 15 Mg/Ml 1 Ml Vial) 15 mg IVP Q6HR PRN PRN Reason: Pain Stop: 10/28/20 12:04 Last Admin: 10/25/20 16:29 Dose: 15 mg Documented by: Losartan Potassium (Losartan 50 Mg Tab) 50 mg PO BID [facility] Last Admin: 10/25/20 20:32 Dose: 50 mg Documented by: Naloxone HCl (Naloxone 0.4 Mg/Ml 1 Ml Vial) 0.2 mg IV Q2M PRN PRN Reason: Opioid Reversal Ondansetron HCl (Ondansetron 4 Mg/2 Ml Vial) 4 mg IVP Q6HR PRN PRN Reason: Nausea Pantoprazole Sodium (Pantoprazole 40 Mg/10 Ml Vial) 40 mg IV DAILY [facility] Last Admin: 10/25/20 09:22 Dose: 40 mg Documented by: On examination: VITAL SIGNS: 98.9, 110, 20, 121 with 71, 96% room air GENERAL APPEARANCE: laying in bed, NG tube HEENT: Normal external appearance of nose and ear. Oral cavity dry EYES: Pupils equal. Conjunctiva normal. NECK: JVD not raised. Mass not palpable. RESPIRATORY: Respiratory effort normal. Lungs clear to auscultation. CARDIOVASCULAR: First and second sounds normal. No edema. ABDOMEN: Soft. Mild tenderness, hyperactive gurgling bowel sounds, Liver and spleen not palpable.. No mass palpable. PSYCHIATRY: Alert and oriented x3. Mood and affect normal. INVESTIGATIONS, reviewed in the clinical context: October: White count 8.5 hemoglobin 13.2 potassium 3.9 creatinine 0.9 to. October: Small bowel follow-through. Obstruction with a transition point. White count 2.6 hemoglobin 13.5 potassium 4.4 creatinine 0.9 Small bowel x-ray-small bowel distended Computed tomography scan of the abdomen-generally second-gallstones. Dilated sm all bowels. Assessment: -Partial small bowel obstruction versus small bowel ileus-NG tube. No improvement. -Gallstones asymptomatic -Essential hypertension -Anxiety not otherwise specified Plan: She remains in NG tube. IV Zosyn. IV fluids. Patient being scheduled for surgery tomorrow.
[2020-10-26] MEDS: PIPERACILLIN-TAZOBACTAM 3.375 GM in SODIUM CHLORIDE 0.9% 100 ML IVPB SCH ×3 (04:02→20:52)
[2020-10-26 06:08] LABS: Basophils % (A) 0 %; Eosinophils # (A) 0.1 k/uL (0-0.7); Eosinophils % (A) 1 %; HCT 37.4 % (34.0-46.0); HGB 12.3 gm/dL (11.4-16.0); Lymphocytes # (A) 0.8 k/uL (1.0-4.8); Lymphocytes % (A) 10 %; MCH 30.5 pg (25.0-35.0); MCV 92.5 fL (80.0-100.0); Mean Platelet Volume 7.6; Monocytes # (A) 0.5 k/uL (0-1.0); Monocytes % (A) 6 %; Neutrophils # (A) 6.4 k/uL (1.3-7.7); Neutrophils % (A) 81 %; Platelet Count 214 k/uL (150-450); RBC 4.04 m/uL (3.80-5.40); RDW 13.3 % (11.5-15.5); WBC 7.9 k/uL (3.8-10.6)
[2020-10-26] MEDS ORDERED: ONDANSETRON 4 MG/2 ML VIAL IVP ONE ×2 (06:20→19:25)
[2020-10-26] MEDS ORDERED: LIDOCAINE 1% (10MG/ML) FOR IV START INTRADERMA PRN (06:20)
[2020-10-26] MEDS ORDERED: MIDAZOLAM 2 MG/2 ML VIAL IV PRN (06:20)
[2020-10-26] MEDS ORDERED: DEXAMETHASONE SOD PHOSPHATE 4 MG/ML 1 ML VIAL IV ONE (06:20)
[2020-10-26] MEDS ORDERED: HYDROmorphone 0.5 MG/0.5 ML SYRINGE IVP PRN (07:00)
[2020-10-26] MEDS: LACTATED RINGERS 1,000 ML IV SCH (08:39)
[2020-10-26] MEDS: PANTOPRAZOLE 40 MG/10 ML VIAL IV SCH (08:47)
[2020-10-26] MEDS: SODIUM CHLORIDE 0.9% 1,000 ML IV SCH ×2 (08:47→20:52)
[2020-10-26] MEDS: LOSARTAN 50 MG TAB PO SCH (08:47)
[2020-10-26] MEDS: ALPRAZolam 0.25 MG TAB PO PRN (08:47)
[2020-10-26] MEDS: HEPARIN SODIUM,PORCINE 5,000 UNIT/ML 1 ML VIAL SQ SCH ×2 (08:47→16:36)
[2020-10-26] MEDS: METOPROLOL TARTRATE 25 MG TAB PO SCH (09:50)
[2020-10-26 11:09] LABS: Anion Gap 12.3 mmol/L (4.00-12.00); Carbon Dioxide 19.7 mmol/L (21.6-31.8); Potassium 3.7 mmol/L (3.5-5.5)
[2020-10-26 11:29] LABS: African American GFR (CKD) 77.9 (60.0-200.0); BUN/Creat Ratio 22.5 Ratio (12.00-20.00); Non-African American GFR(CKD) 67.2 (60.0-200.0)
--- NOTE | 2020-10-26 12:00 | ECHOF ---
Referral Reason:LV function, cardiac clearance MEASUREMENTS -------- HEIGHT: 132.1 cm WEIGHT: 46.7 kg BP: RVIDd: 2.8 cm (< 3.3) IVSd: 1.0 cm (0.6 - 1.1) LVIDd: 3.3 cm (3.9 - 5.3) LVPWd: 1.2 cm (0.6 - 1.1) IVSs: 1.4 cm LVIDs: 2.1 cm LVPWs: 1.4 cm LAESV Index (A-L): 33.62 ml/m Ao Diam: 2.7 cm (2.0 - 3.7) AV Cusp: 1.2 cm (1.5 - 2.6) LA Diam: 3.2 cm (2.7 - 3.8) MV EXCURSION: 15.792 mm (> 18.000) MV EF SLOPE: 74 mm/s (70 - 150) EPSS: 0.2 cm MV E Duy: 0.63 m/s MV DecT: 242 ms MV A Duy: 1.04 m/s MV E/A Ratio: 0.60 AV maxP.53 mmHg AV meanP.42 mmHg RAP: 5.00 mmHg RVSP: 31.33 mmHg FINDINGS -------- Sinus rhythm. This was a technically good study. The left ventricular size is normal. There is mild concentric left ventricular hypertrophy. Overa ll left ventricular systolic function is low-normal with, an EF between 50 - 55 %. The right ventricle is normal in size. LA is midly dilated 29-33ml/m2. The right atrial size is normal. There is moderate aortic stenosis present. Peak/mean gradient across the Aortic Valve is 22.53mmHg / 11.42mmHg. Mild mitral annular calcification present. Mild mitral regurgitation is present. Mild tricuspid regurgitation present. Right ventricular systolic pressure is normal at < 35 mmHg. There is no pulmonic regurgitation present. The aortic root size is normal. There is no pericardial effusion. CONCLUSIONS -------- 1. The left ventricular size is normal. 2. There is mild concentric left ventricular hypertrophy. 3. Overall left ventricular systolic function is low-normal with, an EF between 50 - 55 %. 4. The right ventricle is normal in size. 5. LA is midly dilated 29-33ml/m2. 6. The right atrial size is normal. 7. There is moderate aortic stenosis present. 8. Peak/mean gradient across the Aortic Valve is 22.53mmHg / 11.42mmHg. 9. Mild mitral annular calcification present. 10. Mild mitral regurgitation is present. 11. Mild tricuspid regurgitation present. 12. There is no pulmonic regurgitation present. 13. The aortic root size is normal. 14. There is no pericardial effusion. SEAM RUBBER: Keily Rucker RDCS
--- NOTE | 2020-10-26 12:06 | P.CRDCN ---
History of Present Illness Consult date: 10/26/20 History of present illness: CHIEF COMPLAINT: Cardiac clearance HISTORY OF PRESENT ILLNESS: This is a 85-year-old female with a past medical history significant for hypertension and anxiety. Patient follows in the office with Dr. Wilkes. We have been asked to see the patient in consultation for cardiac clearance. Patient is currently admitted to the hospital secondary to small bowel obstruction. She is scheduled for exploratory laparotomy today with Dr. Griffith. She denies chest pain or pressure. She reports shortness of breath because "I am thirsty". Patient does not appear short of breath during examination. Telemetry reveals sinus tachycardia. Patient states she used to be on beta blockers at one time but is not anymore. She reports "my heart rate is always fast. That is normal for me." DIAGNOSTICS: EKG reveals sinus tachycardia Laboratory data: W BC 8.5. Hemoglobin 13.2. Platelet count 250. Sodium 140. Potassium 3.9. BUN 18. Creatinine 0.92. Lactic acid 1.4. Current home cardiac medications include Cozaar 50 mg twice a day REVIEW OF SYSTEMS: At the time of my exam: CONSTITUTIONAL: Denies fever or chills. HEENT: Denies blurred vision, vision changes, or eye pain. Denies hemoptysis CARDIOVASCULAR: Denies chest pain, orthopnea, PND or palpitations RESPIRATORY: No shortness of breath. GASTROINTESTINAL: Reports abdominal pain. HEMATOLOGIC: Denies bleeding disorders. GENITOURINARY: Denies any blood in urine. SKIN: Denies pruitis. Denies rash. PHYSICAL EXAM: VITAL SIGNS: Reviewed. GENERAL: Well-developed in no acute distress. HEENT: Head is normocephalic. Pupils are equal, round. Sclerae anicteric. Mucous membranes of the mouth are moist. Neck supple. No JVD or thyromegaly LUNGS: Respirations even and unlabored. Lungs essentially clear to auscultation bilaterally. HEART: Tachycardic. Regular rate and rhythm. S1 and S2 heard. Systolic murmur noted. ABDOMEN: Soft. Distended. Tenderness with palpation. NG tube to low intermittent suction noted. EXTREMITIES: Normal range of motion. No clubbing or cyanosis. Peripheral pulses intact. No lower extremity edema NEUROLOGIC: Awake and alert. Oriented x 3. ASSESSMENT: Small bowel obstruction Sinus tachycardia Paroxysmal supraventricular tachycardia Moderate aortic stenosis Hypertension Anxiety PLAN: Begin metoprolol 25mg BID Continue telemetry monitoring There are no absolute contraindications for patient to undergo surgical intervention. Patient is at a moderate risk from a cardiac standpoint. We will continue to follow along postoperatively Further recommendations pending patient course Nurse practitioner note has been reviewed by physician. Signing provider agrees with the documented findings, assessment, and plan of care. Past Medical History Past Medical History: Hypertension History of Any Multi-Drug Resistant Organisms: None Reported Past Surgical History: No Surgical Hx Reported Past Psychological History: Depression Smoking Status: Never smoker Past Alcohol Use History: None Reported Past Drug Use History: None Reported Medications and Allergies Home Medications Medication Instructions Recorded Confirmed Type ALPRAZolam [Xanax] 0.25 mg PO BID PRN 10/22/20 10/22/20 History ALPRAZolam [Xanax] 0.25 mg PO HS 10/22/20 10/22/20 History Cyanocobalamin [Vitamin B-12] 500 mcg PO HS 10/22/20 10/22/20 History Losartan Potassium [Cozaar] 50 mg PO BID 10/22/20 10/22/20 History Vitamin C/Biotin [Hair, Skin and 1 tab PO HS 10/22/20 10/22/20 History Nails] Allergies Allergy/AdvReac Type Severity Reaction Status Date / Time acetaminophen Allergy Unknown Verified 10/22/20 23:07 alcohol Allergy Rash/Hives Verified 10/22/20 23:07 morphine Allergy Rash/Hives Verified 10/22/20 23:07 propoxyphene [From Darvon] Allergy Unknown Verified 10/22/20 23:07 Physical Exam Vitals: Vital Signs Temp Pulse Resp BP Pulse Ox 10/26/20 08:17 97.9 F 101 H 18 153/77 98 10/26/20 02:34 98.5 F 95 149/71 96 10/25/20 20:50 98.7 F 99 16 154/77 97 10/25/20 14:00 97.9 F 94 20 154/52 98 Intake and Output 10/25/20 10/26/20 10/26/20 22:59 06:59 14:59 Output Total 150 Balance -150 Output: Gastric Drainage 150 Other: Voiding Method Toilet Results 10/26/20 05:44 10/26/20 05:44 CBC 10/26/20 Range/Units 05:44 WBC 7.9 (3.8-10.6) k/uL RBC 4.04 (3.80-5.40) m/uL Hgb 12.3 (11.4-16.0) gm/dL Hct 37.4 (34.0-46.0) % Plt Count 214 (150-450) k/uL Current Medications Generic Name Dose Route Start Last Admin Trade Name Freq PRN Reason Stop Dose Admin Alprazolam 0.25 mg 10/23/20 12:01 10/26/20 08:47 Alprazolam 0.25 Mg Tab PO 0.25 mg BID PRN Administration Anxiety Alprazolam 0.25 mg 10/23/20 21:00 10/25/20 20:32 Alprazolam 0.25 Mg Tab PO 0.25 mg HS [facility] Administration Heparin Sodium (Porcine) 5,000 unit 10/23/20 08:00 10/26/20 08:47 Heparin Sodium,Porcine 5,000 Unit/Ml 1 Ml Vial SQ 5,000 unit Q8HR [facility] Administration Hydromorphone HCl 0.5 mg 10/26/20 07:00 Hydromorphone 0.5 Mg/0.5 Ml Syringe IVP 10/26/20 23:00 Q5M PRN Pain Control Sodium Chloride 1,000 mls @ 100 mls/hr 10/23/20 01:15 10/26/20 08:47 Saline 0.9% IV 100 mls/hr .Q10H [facility] Administration Piperacillin Sod/Tazobactam 100 mls @ 25 mls/hr 10/23/20 12:00 10/26/20 04:02 Sod 3.375 gm/ Sodium Chloride IVPB 25 mls/hr Q8H [facility] Administration Lactated Ringer's 1,000 mls @ 20 mls/hr 10/26/20 06:20 10/26/20 08:39 Lactated Ringers IV Not Given .Q24H [facility] Ketorolac Tromethamine 15 mg 10/23/20 12:03 10/25/20 16:29 Ketorolac 15 Mg/Ml 1 Ml Vial IVP 10/28/20 12:04 15 mg Q6HR PRN Administration Pain Lidocaine HCl 0.1 ml 10/26/20 06:20 Lidocaine 1% (10mg/Ml) For Iv Start INTRADERMA PER PROTOCOL PRN IV Start Losartan Potassium 50 mg 10/23/20 09:00 10/26/20 08:47 Losartan 50 Mg Tab PO 50 mg BID [facility] Administration Metoprolol Tartrate 25 mg 10/26/20 09:45 10/26/20 09:50 Metoprolol Tartrate 25 Mg Tab PO 25 mg BID [facility] Administration Midazolam HCl 2 mg 10/26/20 06:20 Midazolam 2 Mg/2 Ml Vial IV 10/26/20 23:00 ONCE PRN Anxiety Naloxone HCl 0.2 mg 10/23/20 00:17 Naloxone 0.4 Mg/Ml 1 Ml Vial IV Q2M PRN Opioid Reversal Ondansetron HCl 4 mg 10/23/20 01:31 Ondansetron 4 Mg/2 Ml Vial IVP Q6HR PRN Nausea Pantoprazole Sodium 40 mg 10/23/20 09:00 10/26/20 08:47 Pantoprazole 40 Mg/10 Ml Vial IV 40 mg DAILY [facility] Administration Intake and Output 10/25/20 10/26/20 10/26/20 22:59 06:59 14:59 Output Total 150 Balance -150 Output: Gastric Drainage 150 Other: Voiding Method Toilet 10/26/20 05:44 10/25/20 09:12
[2020-10-26] MEDS ORDERED: SUCCINYLCHOLINE CHLORIDE 100 MG/5 ML SYR IV ONE (18:18)
[2020-10-26] MEDS ORDERED: HYDROmorphone (PF) 1 MG/ML ONE (18:18)
[2020-10-26] MEDS ORDERED: NEOSTIGMINE 1 MG/ML 10 ML VIAL ONE (18:18)
[2020-10-26] MEDS ORDERED: LIDOCAINE 1% INJ 10MG/ML (20 ML MDV) ONE (18:18)
[2020-10-26] MEDS ORDERED: PROPOFOL 10 MG/ML 20 ML VIAL IV ONE (18:18)
[2020-10-26] MEDS ORDERED: ETOMIDATE 2 MG/ML 10 ML VIAL ONE (18:18)
[2020-10-26] MEDS ORDERED: fentaNYL (PF) 50 MCG/ML 2 ML AMP ONE (18:18)
[2020-10-26] MEDS ORDERED: GLYCOPYRROLATE 0.2 MG/ML 2 ML VIAL ONE (18:18)
[2020-10-26] MEDS ORDERED: ROCURONIUM 10 MG/ML (10 ML VIAL) IV ONE (18:18)
[2020-10-26] MEDS ORDERED: IV FLUID CONTINUATION 1,000 ML IV ONE (18:21)
[2020-10-26] MEDS ORDERED: HYDROmorphone 0.5 MG/0.5 ML SYRINGE IVP ONE (19:35)
[2020-10-26] MEDS ORDERED: HYDROmorphone 1 MG/ML 1 ML SYRINGE IVP ONE ×2 (19:40→19:45)
[2020-10-26] MEDS ORDERED: diphenhydrAMINE 50 MG/ML 1 ML VIAL IVP ONE (19:51)
--- NOTE | 2020-10-26 23:47 | P.PN ---
Progress Note - Text Progress Note Date: 10/26/20 Presenting complaint: Abdominal pain Interval history: Patient presented 1 day of abdominal pain. Admitted with a diagnosis of partial small bowel obstruction. NG tube was placed. Today-abdominal pain was present. NG tube in place. Very small amount of flatus. Plan for surgery later this afternoon. Review of systems: Was done for constitutional, cardiovascular, GI, pulmonary. relevant finding as above current medications reviewed in today's electronic records On examination: VITAL SIGNS: 97.9, 101, 18, 153 with 77, 98% room air GENERAL APPEARANCE: laying in bed, NG tube HEENT: Normal external appearance of nose and ear. Oral cavity dry EYES: Pupils equal. Conjunctiva normal. NECK: JVD not raised. Mass not palpable. RESPIRATORY: Respiratory effort normal. Lungs clear to auscultation. CARDIOVASCULAR: First and second sounds normal. No edema. ABDOMEN: Soft. Mild tenderness, hyperactive gurgling bowel sounds, Liver and spleen not palpable.. No mass palpable. PSYCHIATRY: Alert and oriented x3. Mood and affect normal. INVESTIGATIONS, reviewed in the clinical context: October 26: White count 7.9 hemoglobin 12.3 potassium 3.7 creatinine 0.8 October: White count 8.5 hemoglobin 13.2 potassium 3.9 creatinine 0.9 to. October: Small bowel follow-through. Obstruction with a transition point. White count 2.6 hemoglobin 13.5 potassium 4.4 creatinine 0.9 Small bowel x-ray-small bowel distended Computed tomography scan of the abdomen-generally second-gallstones. Dilated small bowels. Assessment: -Partial small bowel obstruction versus small bowel ileus-NG tube. No improvement.-pending surgery this afternoon -Gallstones asymptomatic -Essential hypertension -Anxiety not otherwise specified Plan: NG tube. IV Zosyn. IV fluids. ending surgery this afternoon. Discussed with the patient.
[2020-10-27] MEDS: METOPROLOL TARTRATE 25 MG TAB PO SCH ×3 (01:43→20:25)
[2020-10-27] MEDS: ALPRAZolam 0.25 MG TAB PO SCH ×2 (01:43→20:25)
[2020-10-27] MEDS: LOSARTAN 50 MG TAB PO SCH ×3 (01:43→20:25)
[2020-10-27] MEDS: HEPARIN SODIUM,PORCINE 5,000 UNIT/ML 1 ML VIAL SQ SCH ×4 (01:47→23:23)
[2020-10-27] MEDS: PIPERACILLIN-TAZOBACTAM 3.375 GM in SODIUM CHLORIDE 0.9% 100 ML IVPB SCH ×3 (04:33→20:25)
[2020-10-27] MEDS: SODIUM CHLORIDE 0.9% 1,000 ML IV SCH ×3 (05:25→21:46)
[2020-10-27] MEDS: LACTATED RINGERS 1,000 ML IV SCH (05:25)
[2020-10-27] MEDS: PANTOPRAZOLE 40 MG/10 ML VIAL IV SCH (08:11)
[2020-10-27 10:16] LABS: Basophils % (A) 0 %; Eosinophils % (A) 0 %; HCT 39.5 % (34.0-46.0); HGB 12.1 gm/dL (11.4-16.0); Lymphocytes # (A) 0.5 k/uL (1.0-4.8); Lymphocytes % (A) 5 %; MCH 28.9 pg (25.0-35.0); MCHC 30.6 g/dL (31.0-37.0); MCV 94.4 fL (80.0-100.0); Mean Platelet Volume 7.9; Monocytes # (A) 0.3 k/uL (0-1.0); Monocytes % (A) 3 %; Neutrophils # (A) 10.6 k/uL (1.3-7.7); Neutrophils % (A) 92 %; Platelet Count 230 k/uL (150-450); RBC 4.18 m/uL (3.80-5.40); WBC 11.5 k/uL (3.8-10.6)
[2020-10-27 10:47] LABS: African American GFR (CKD) 60 (>60 ml/min/1.73 sqM); Anion Gap 7 mmol/L; Blood Urea Nitrogen 18 mg/dL (7-17); Calcium 8.1 mg/dL (8.4-10.2); Carbon Dioxide 22 mmol/L (22-30); Chloride 114 mmol/L (98-107); Glucose 106 mg/dL (74-99); Non-African American GFR(CKD) 52 (>60 ml/min/1.73 sqM); Potassium 3.8 mmol/L (3.5-5.1); Sodium 143 mmol/L (137-145)
--- NOTE | 2020-10-27 11:04 | P.PN ---
Subjective Progress Note Date: 10/27/20 CHIEF COMPLAINT: Abdominal pain HISTORY OF PRESENT ILLNESS: Patient is being followed for ileus versus partial small bowel obstruction. She is status post exploratory laparotomy with lysis of adhesions. She currently has NG tube in place with 50mL of greenish output through the night. Patient reports that her abdominal pain is controlled. She denies any bowel movement or passing of gas. She denies any nausea or vomiting. Afebrile. WBC 11.5 hemoglobin 12.1 cardiology did add metoprolol for patient's tachycardia an episode of SVT. Heart rate is 85 this morning PHYSICAL EXAM: VITAL SIGNS: Reviewed. GENERAL: Well-developed in no acute distress. HEENT: No sclera icterus. Extraocular movements grossly intact. Moist buccal mucosa. Head is atraumatic, normocephalic. ABDOMEN: Soft. Distended. Incision dressing has a few small areas of blood saturation NEUROLOGIC: Alert and oriented. Cranial nerves II through XII grossly intact. ASSESSMENT: 1. Small bowel obstruction status post exploratory laparotomy with lysis of adhesions postop day #1 PLAN: -Continue NG tube for decompression -Keep patient nothing by mouth -Continue antibiotics -Continue IV fluids -Continue GI prophylaxis Protonix and DVT prophylaxis subcu heparin Physician Dietetic Technician note has been reviewed by physician. Signing provider agrees with the documented findings, assessment, and plan of care. Objective - Vital Signs Vital signs: Vital Signs Temp 97.8 F 10/27/20 07:26 Pulse 85 10/27/20 07:26 Resp 18 10/27/20 07:26 BP 129/68 10/27/20 07:26 Pulse Ox 98 10/27/20 07:26 Intake & Output 10/26/20 10/27/20 10/27/20 18:59 06:59 18:59 Intake Total 700 250 Output Total 210 500 Balance 490 -250 Intake: IV 700 150 Intake, IV Titration 100 Amount Piperacillin-Tazobactam 3 100 .375 gm In Sodium Chloride 0.9% 100 ml @ 25 mls/hr IVPB Q8H [facility] Rx#: [id number] Output: Gastric Drainage 200 50 Urine 450 Uretheral (Jara) 300 Estimated Blood Loss 10 Other: Voiding Method Toilet Indwelling Catheter - Labs CBC & Chem 7: 10/27/20 09:49 10/27/20 09:49 Labs: Abnormal Lab Results - Last 24 Hours (Table) 10/26/20 10/27/20 10/27/20 Range/Units 05:44 09:49 09:49 WBC 11.5 H (3.8-10.6) k/uL MCHC 30.6 L (31.0-37.0) g/dL Neutrophils # 10.6 H (1.3-7.7) k/uL Lymphocytes # 0.5 L (1.0-4.8) k/uL Chloride 111 H 114 H (96-109) mmol/L Carbon Dioxide 19.7 L (21.6-31.8) mmol/L Anion Gap 12.30 H (4.00-12.00) mmol/L BUN 18 H (7-17) mg/dL BUN/Creatinine Ratio 22.50 H (12.00-20.00) Ratio Glucose 106 H (74-99) mg/dL Calcium 8.0 L 8.1 L (8.7-10.3) mg/dL
--- NOTE | 2020-10-27 11:14 | P.PN ---
Subjective Progress Note Date: 10/27/20 CHIEF COMPLAINT: Cardiac clearance HISTORY OF PRESENT ILLNESS: 10/26/2020 This is a 85-year-old female with a past medical history significant for hypertension and anxiety. Patient follows in the office with Dr. Wilkes. We have been asked to see the patient in consultation for cardiac clearance. Patient is currently admitted to the hospital secondary to small bowel obstruction. She is scheduled for exploratory laparotomy today with Dr. Griffith. She denies chest pain or pressure. She reports shortness of breath because "I am thirsty". Patient does not appear short of breath during examination. Telemetry reveals sinus tachycardia. Patient states she used to be on beta blockers at one time but is not anymore. She reports "my heart rate is always fast. That is normal for me." 10/27/2020 Patient examined this morning at the bedside. She underwent exploratory laparotomy with lysis of adhesions with Dr. Griffith. Postop day #1. Patient reports some abdominal pain this morning. She denies chest pain or pressure. She denies shortness of breath. Heart rate has been controlled in the 80s. Blood pressure 129/68. PHYSICAL EXAM: VITAL SIGNS: Reviewed. GENERAL: Well-developed in no acute distress. HEENT: Head is normocephalic. Pupils are equal, round. Sclerae anicteric. Mucous membranes of the mouth are moist. Neck supple. No JVD or thyromegaly LUNGS: Respirations even and unlabored. Lungs essentially clear to auscultation bilaterally. HEART: Tachycardic. Regular rate and rhythm. S1 and S2 heard. Systolic murmur noted. ABDOMEN: Soft. Dressing clean dry and intact. Tenderness with palpation. NG tube to low intermittent suction noted. EXTREMITIES: Normal range of motion. No clubbing or cyanosis. Peripheral pulses intact. No lower extremity edema NEUROLOGIC: Awake and alert. Oriented x 3. ASSESSMENT: Small bowel obstruction, status post exploratory laparotomy with lysis of adh esions Sinus tachycardia Paroxysmal supraventricular tachycardia Moderate aortic stenosis Hypertension Anxiety PLAN: Continue telemetry monitoring Continue current cardiac medications. Please give medications via NG tube and then clamp for 1 hour post administration. Further recommendations pending patient's course Nurse practitioner note has been reviewed by physician. Signing provider agrees with the documented findings, assessment, and plan of care. Objective - Vital Signs Vital signs: Vital Signs Temp 97.8 F 10/27/20 07:26 Pulse 85 10/27/20 07:26 Resp 18 10/27/20 07:26 BP 129/68 10/27/20 07:26 Pulse Ox 98 10/27/20 07:26 Intake & Output 10/26/20 10/27/20 10/27/20 18:59 06:59 18:59 Intake Total 700 250 Output Total 210 500 Balance 490 -250 Intake: IV 700 150 Intake, IV Titration 100 Amount Piperacillin-Tazobactam 3 100 .375 gm In Sodium Chloride 0.9% 100 ml @ 25 mls/hr IVPB Q8H [facility] Rx#: [id number] Output: Gastric Drainage 200 50 Urine 450 Uretheral (Jara) 300 Estimated Blood Loss 10 Other: Voiding Method Toilet Indwelling Catheter - Labs CBC & Chem 7: 10/27/20 09:49 10/27/20 09:49 Labs: Abnormal Lab Results - Last 24 Hours (Table) 10/26/20 10/27/20 10/27/20 Range/Units 05:44 09:49 09:49 WBC 11.5 H (3.8-10.6) k/uL MCHC 30.6 L (31.0-37.0) g/dL Neutrophils # 10.6 H (1.3-7.7) k/uL Lymphocytes # 0.5 L (1.0-4.8) k/uL Chloride 114 H (98-107) mmol/L BUN 18 H (7-17) mg/dL BUN/Creatinine Ratio 22.50 H (12.00-20.00) Ratio Glucose 106 H (74-99) mg/dL Calcium 8.1 L (8.4-10.2) mg/dL
[2020-10-27] MEDS: KETOROLAC 15 MG/ML 1 ML VIAL IVP PRN (13:13)
--- NOTE | 2020-10-27 21:55 | P.PN ---
Progress Note - Text Progress Note Date: 10/27/20 Presenting complaint: Abdominal pain Interval history: Patient presented 1 day of abdominal pain. Admitted with a diagnosis of partial small bowel obstruction. NG tube was placed. October 26-underwent lyses medication Today-laying in bed. NG tube to suction. Abdominal pain better. No flatus. Review of systems: Was done for constitutional, cardiovascular, GI, pulmonary. relevant finding as above Active Medications Alprazolam (Alprazolam 0.25 Mg Tab) 0.25 mg PO BID PRN PRN Reason: Anxiety Last Admin: 10/26/20 08:47 Dose: 0.25 mg Documented by: Alprazolam (Alprazolam 0.25 Mg Tab) 0.25 mg PO HS [facility] Last Admin: 10/27/20 20:25 Dose: 0.25 mg Documented by: Heparin Sodium (Porcine) (Heparin Sodium,Porcine 5,000 Unit/Ml 1 Ml Vial) 5,000 unit SQ Q8HR [facility] Last Admin: 10/27/20 16:09 Dose: 5,000 unit Documented by: Hydromorphone HCl (Hydromorphone 0.5 Mg/0.5 Ml Syringe) 0.5 mg IVP Q3HR PRN PRN Reason: Pain Sodium Chloride (Saline 0.9%) 1,000 mls @ 125 mls/hr IV .Q8H [facility] Last Admin: 10/27/20 21:46 Dose: Not Given Documented by: Piperacillin Sod/Tazobactam (Sod 3.375 gm/ Sodium Chloride) 100 mls @ 25 mls/hr IVPB Q8H [facility] Last Admin: 10/27/20 20:25 Dose: 25 mls/hr Documented by: Lactated Ringer's (Lactated Ringers) 1,000 mls @ 20 mls/hr IV .Q24H [facility] Last Admin: 10/27/20 05:25 Dose: Not Given Documented by: Ketorolac Tromethamine (Ketorolac 15 Mg/Ml 1 Ml Vial) 15 mg IVP Q6HR PRN PRN Reason: Pain Stop: 10/28/20 12:04 Last Admin: 10/27/20 13:13 Dose: 15 mg Documented by: Lidocaine HCl (Lidocaine 1% (10mg/Ml) For Iv Start) 0.1 ml INTRADERMA PER PROTOCOL PRN PRN Reason: IV Start Losartan Potassium (Losartan 50 Mg Tab) 50 mg PO BID [facility] Last Admin: 10/27/20 20:25 Dose: 50 mg Documented by: Metoprolol Tartrate (Metoprolol Tartrate 25 Mg Tab) 25 mg PO BID [facility] Last Admin: 10/27/20 20:25 Dose: 25 mg Documented by: Naloxone HCl (Naloxone 0.4 Mg/Ml 1 Ml Vial) 0.2 mg IV Q2M PRN PRN Reason: Opioid Reversal Ondansetron HCl (Ondansetron 4 Mg/2 Ml Vial) 4 mg IVP Q6HR PRN PRN Reason: Nausea Pantoprazole Sodium (Pantoprazole 40 Mg/10 Ml Vial) 40 mg IV DAILY [facility] Last Admin: 10/27/20 08:11 Dose: 40 mg Documented by: On examination: VITAL SIGNS: 98.6, 94, 18, 136/72, 93% on room air GENERAL APPEARANCE: laying in bed, NG tube HEENT: Normal external appearance of nose and ear. Oral cavity dry EYES: Pupils equal. Conjunctiva normal. NECK: JVD not raised. Mass not palpable. RESPIRATORY: Respiratory effort normal. Lungs clear to auscultation. CARDIOVASCULAR: First and second sounds normal. No edema. ABDOMEN: Soft. Mild tenderness, dressing over the incision Liver and spleen not palpable.. No mass palpable. PSYCHIATRY: Alert and oriented x3. Mood and affect normal. INVESTIGATIONS, reviewed in the clinical context: October 27: White count 11.5 hemoglobin 12.1 potassium 3.8 creatinine 1 October 26: White count 7.9 hemoglobin 12.3 potassium 3.7 creatinine 0.8 October: White count 8.5 hemoglobin 13.2 potassium 3.9 creatinine 0.9 to. October: Small bowel follow-through. Obstruction with a transition point. White count 2.6 hemoglobin 13.5 potassium 4.4 creatinine 0.9 Small bowel x-ray-small bowel distended Computed tomography scan of the abdomen-generally second-gallstones. Dilated small bowels. Assessment: -Partial small bowel obstruction , followed by lysis of adhesions on October 26 -Gallstones asymptomatic -Essential hypertension -Anxiety not otherwise specified Plan: NG tube. IV Zosyn. IV fluids. Discussed with the patient
[2020-10-27] MEDS: HYDROmorphone 0.5 MG/0.5 ML SYRINGE IVP PRN (23:23)
[2020-10-28] MEDS: PIPERACILLIN-TAZOBACTAM 3.375 GM in SODIUM CHLORIDE 0.9% 100 ML IVPB SCH ×3 (03:56→19:14)
[2020-10-28] MEDS: LACTATED RINGERS 1,000 ML IV SCH (04:55)
[2020-10-28] MEDS: SODIUM CHLORIDE 0.9% 1,000 ML IV SCH ×3 (04:55→20:29)
[2020-10-28] MEDS: METOPROLOL TARTRATE 25 MG TAB PO SCH ×2 (07:45→20:29)
[2020-10-28] MEDS: KETOROLAC 15 MG/ML 1 ML VIAL IVP PRN (07:45)
[2020-10-28] MEDS: PANTOPRAZOLE 40 MG/10 ML VIAL IV SCH (07:45)
[2020-10-28] MEDS: LOSARTAN 50 MG TAB PO SCH ×2 (07:45→20:29)
[2020-10-28] MEDS: HEPARIN SODIUM,PORCINE 5,000 UNIT/ML 1 ML VIAL SQ SCH ×3 (07:46→23:15)
--- NOTE | 2020-10-28 09:52 | P.PN ---
Subjective Progress Note Date: 10/28/20 CHIEF COMPLAINT: Cardiac clearance HISTORY OF PRESENT ILLNESS: 10/26/2020 This is a 85-year-old female with a past medical history significant for hypertension and anxiety. Patient follows in the office with Dr. Wilkes. We have been asked to see the patient in consultation for cardiac clearance. Patient is currently admitted to the hospital secondary to small bowel obstruction. She is scheduled for exploratory laparotomy today with Dr. Griffith. She denies chest pain or pressure. She reports shortness of breath because "I am thirsty". Patient does not appear short of breath during examination. Telemetry reveals sinus tachycardia. Patient states she used to be on beta blockers at one time but is not anymore. She reports "my heart rate is always fast. That is normal for me." 10/27/2020 Patient examined this morning at the bedside. She underwent exploratory laparotomy with lysis of adhesions with Dr. Griffith. Postop day #1. Patient reports some abdominal pain this morning. She denies chest pain or pressure. She denies shortness of breath. Heart rate has been controlled in the 80s. Blood pressure 129/68. 10/28/2020 Patient examined at the bedside. She denies chest pain or pressure. Denies shortness of breath. She states her abdominal pain has improved since yesterday. Blood pressure is stable. Heart rate is controlled. PHYSICAL EXAM: VITAL SIGNS: Reviewed. GENERAL: Well-developed in no acute distress. HEENT: Head is normocephalic. Pupils are equal, round. Sclerae anicteric. Mucous membranes of the mouth are moist. Neck supple. No JVD or thyromegaly LUNGS: Respirations even and unlabored. Lungs essentially clear to auscultation bilaterally. HEART: Tachycardic. Regular rate and rhythm. S1 and S2 heard. Systolic murmur noted. ABDOMEN: Soft. Dressing clean dry and intact. Tenderness with palpation. NG tube to low intermittent suction noted. EXTREMITIES: Normal range of motion. No clubbing or cyanosis. Peripheral pulses intact. No lower extremity edema NEUROLOGIC: Awake and alert. Oriented x 3. ASSESSMENT: Small bowel obstruction, status post exploratory laparotomy with lysis of adhesions Sinus tachycardia Paroxysmal supraventricular tachycardia Moderate aortic stenosis Hypertension Anxiety PLAN: Continue telemetry monitoring Continue current cardiac medications We will sign off. Please reconsult if needed. Nurse practitioner note has been reviewed by physician. Signing provider agrees with the documented findings, assessment, and plan of care. Objective - Vital Signs Vital signs: Vital Signs Temp 98.1 F 10/28/20 07:49 Pulse 89 10/28/20 07:49 Resp 18 10/28/20 07:49 BP 144/61 10/28/20 07:49 Pulse Ox 95 10/28/20 07:49 Intake & Output 10/27/20 10/28/20 10/28/20 18:59 06:59 18:59 Intake Total 1200 Output Total 325 550 Balance -325 650 Intake: Intake, IV Titration 1100 Amount Piperacillin-Tazobactam 3 100 .375 gm In Sodium Chloride 0.9% 100 ml @ 25 mls/hr IVPB Q8H [facility] Rx#: [id number] Sodium Chloride 0.9% 1, 1000 000 ml @ 125 mls/hr IV . Q8H [facility] Rx#:[id number] Oral 100 Output: Gastric Drainage 50 Urine 325 500 Other: Voiding Method Indwelling Catheter - Labs CBC & Chem 7: 10/27/20 09:49 10/27/20 09:49 Labs: Abnormal Lab Results - Last 24 Hours (Table) 10/27/20 10/27/20 Range/Units 09:49 09:49 WBC 11.5 H (3.8-10.6) k/uL MCHC 30.6 L (31.0-37.0) g/dL Neutrophils # 10.6 H (1.3-7.7) k/uL Lymphocytes # 0.5 L (1.0-4.8) k/uL Chloride 114 H (98-107) mmol/L BUN 18 H (7-17) mg/dL Glucose 106 H (74-99) mg/dL Calcium 8.1 L (8.4-10.2) mg/dL
--- NOTE | 2020-10-28 10:23 | P.PN ---
Subjective Progress Note Date: 10/28/20 CHIEF COMPLAINT: Abdominal pain HISTORY OF PRESENT ILLNESS: Patient is being followed for small bowel obs truction. She is status post exploratory laparotomy with lysis of adhesions. She currently has NG tube in place with 50mL of greenish output through the night. Patient reports that her abdominal pain is controlled. She denies any bowel movement or passing of gas. She denies any nausea or vomiting. Afebrile. Labs pending. Cardiology did add metoprolol for patient's tachycardia and episode of SVT. Heart rate is 89 this morning PHYSICAL EXAM: VITAL SIGNS: Reviewed. GENERAL: Well-developed in no acute distress. HEENT: No sclera icterus. Extraocular movements grossly intact. Moist buccal mucosa. Head is atraumatic, normocephalic. ABDOMEN: Soft. Distended. Incision dressing has a few small areas of blood saturation NEUROLOGIC: Alert and oriented. Cranial nerves II through XII grossly intact. ASSESSMENT: 1. Small bowel obstruction status post exploratory laparotomy with lysis of adhesions postop day #2 PLAN: -Discontinue NG tube and start patient on clear liquid diet -Continue antibiotics -Continue IV fluids -Encourage patient to ambulate and use incentive spirometer -Continue GI prophylaxis Protonix and DVT prophylaxis subcu heparin Physician Parks Worker note has been reviewed by physician. Signing provider agrees with the documented findings, assessment, and plan of care. Objective - Vital Signs Vital signs: Vital Signs Temp 98.1 F 10/28/20 07:49 Pulse 89 10/28/20 07:49 Resp 18 10/28/20 07:49 BP 144/61 10/28/20 07:49 Pulse Ox 95 10/28/20 07:49 Intake & Output 10/27/20 10/28/20 10/28/20 18:59 06:59 18:59 Intake Total 1200 Output Total 325 550 Balance -325 650 Intake: Intake, IV Titration 1100 Amount Piperacillin-Tazobactam 3 100 .375 gm In Sodium Chloride 0.9% 100 ml @ 25 mls/hr IVPB Q8H [facility] Rx#: [id number] Sodium Chloride 0.9% 1, 1000 000 ml @ 125 mls/hr IV . Q8H [facility] Rx#:[id number] Oral 100 Output: Gastric Drainage 50 Urine 325 500 Other: Voiding Method Indwelling Catheter - Labs CBC & Chem 7: 10/28/20 11:09 10/28/20 11:09 Labs: Abnormal Lab Results - Last 24 Hours (Table) 10/27/20 Range/Units 09:49 Chloride 114 H (98-107) mmol/L BUN 18 H (7-17) mg/dL Glucose 106 H (74-99) mg/dL Calcium 8.1 L (8.4-10.2) mg/dL
[2020-10-28 12:16] LABS: Basophils % (A) 0 %; Eosinophils % (A) 0 %; HCT 35.5 % (34.0-46.0); HGB 11.7 gm/dL (11.4-16.0); Lymphocytes # (A) 0.5 k/uL (1.0-4.8); Lymphocytes % (A) 5 %; MCH 30.3 pg (25.0-35.0); MCHC 32.8 g/dL (31.0-37.0); MCV 92.4 fL (80.0-100.0); Mean Platelet Volume 8.4; Monocytes # (A) 0.4 k/uL (0-1.0); Monocytes % (A) 4 %; Neutrophils # (A) 10.8 k/uL (1.3-7.7); Neutrophils % (A) 91 %; Platelet Count 232 k/uL (150-450); RBC 3.85 m/uL (3.80-5.40); RDW 13.6 % (11.5-15.5); WBC 11.9 k/uL (3.8-10.6)
[2020-10-28 12:19] LABS: African American GFR (CKD) 61 (>60 ml/min/1.73 sqM); Anion Gap 8 mmol/L; Blood Urea Nitrogen 20 mg/dL (7-17); Calcium 8.6 mg/dL (8.4-10.2); Carbon Dioxide 22 mmol/L (22-30); Chloride 116 mmol/L (98-107); Glucose 143 mg/dL (74-99); Non-African American GFR(CKD) 53 (>60 ml/min/1.73 sqM); Potassium 3.7 mmol/L (3.5-5.1); Sodium 146 mmol/L (137-145)
[2020-10-28 14:02] VITALS: BMI 20.7
[2020-10-28] MEDS: ALPRAZolam 0.25 MG TAB PO SCH (20:29)
[2020-10-28] MEDS: HYDROmorphone 0.5 MG/0.5 ML SYRINGE IVP PRN (22:44)
--- NOTE | 2020-10-28 22:48 | P.PN ---
Progress Note - Text Progress Note Date: 10/28/20 Presenting complaint: Abdominal pain Interval history: Patient presented 1 day of abdominal pain. Admitted with a diagnosis of partial small bowel obstruction. NG tube was placed. October 26-underwent lyses of adhesions Today-NG tube in place. Abdominal pain better. Up in a chair. No flatus. No nausea vomiting. Review of systems: Was done for constitutional, cardiovascular, GI, pulmonary. relevant finding as above Active Medications Alprazolam (Alprazolam 0.25 Mg Tab) 0.25 mg PO BID PRN PRN Reason: Anxiety Last Admin: 10/26/20 08:47 Dose: 0.25 mg Documented by: Alprazolam (Alprazolam 0.25 Mg Tab) 0.25 mg PO HS [facility] Last Admin: 10/28/20 20:29 Dose: 0.25 mg Documented by: Heparin Sodium (Porcine) (Heparin Sodium,Porcine 5,000 Unit/Ml 1 Ml Vial) 5,000 unit SQ Q8HR [facility] Last Admin: 10/28/20 16:25 Dose: 5,000 unit Documented by: Hydromorphone HCl (Hydromorphone 0.5 Mg/0.5 Ml Syringe) 0.5 mg IVP Q3HR PRN PRN Reason: Pain Last Admin: 10/28/20 22:44 Dose: 0.5 mg Documented by: Sodium Chloride (Saline 0.9%) 1,000 mls @ 125 mls/hr IV .Q8H [facility] Last Admin: 10/28/20 20:29 Dose: 125 mls/hr Documented by: Piperacillin Sod/Tazobactam (Sod 3.375 gm/ Sodium Chloride) 100 mls @ 25 mls/hr IVPB Q8H [facility] Last Admin: 10/28/20 19:14 Dose: 25 mls/hr Documented by: Lactated Ringer's (Lactated Ringers) 1,000 mls @ 20 mls/hr IV .Q24H [facility] Last Admin: 10/28/20 04:55 Dose: Not Given Documented by: Lidocaine HCl (Lidocaine 1% (10mg/Ml) For Iv Start) 0.1 ml INTRADERMA PER PROTOCOL PRN PRN Reason: IV Start Losartan Potassium (Losartan 50 Mg Tab) 50 mg PO BID [facility] Last Admin: 10/28/20 20:29 Dose: 50 mg Documented by: Metoprolol Tartrate (Metoprolol Tartrate 25 Mg Tab) 25 mg PO BID [facility] Last Admin: 10/28/20 20:29 Dose: 25 mg Documented by: Naloxone HCl (Naloxone 0.4 Mg/Ml 1 Ml Vial) 0.2 mg IV Q2M PRN PRN Reason: Opioid Reversal Ondansetron HCl (Ondansetron 4 Mg/2 Ml Vial) 4 mg IVP Q6HR PRN PRN Reason: Nausea Pantoprazole Sodium (Pantoprazole 40 Mg/10 Ml Vial) 40 mg IV DAILY [facility] Last Admin: 10/28/20 07:45 Dose: 40 mg Documented by: On examination: VITAL SIGNS: 98.5, 86, 18, 164/73, 97% room air GENERAL APPEARANCE: Up in bed, NG tube HEENT: Normal external appearance of nose and ear. Oral cavity dry EYES: Pupils equal. Conjunctiva normal. NECK: JVD not raised. Mass not palpable. RESPIRATORY: Respiratory effort normal. Lungs clear to auscultation. CARDIOVASCULAR: First and second sounds normal. No edema. ABDOMEN: Soft. Mild tenderness, dressing over the incision Liver and spleen not palpable.. No mass palpable. PSYCHIATRY: Alert and oriented x3. Mood and affect normal. INVESTIGATIONS, reviewed in the clinical context: October 28: White count 11.9 hemoglobin 11.7 potassium 3.7 crit 0.98 October 27: White count 11.5 hemoglobin 12.1 potassium 3.8 creatinine 1 October 26: White count 7.9 hemoglobin 12.3 potassium 3.7 creatinine 0.8 October: White count 8.5 hemoglobin 13.2 potassium 3.9 creatinine 0.9 to. October: Small bowel follow-through. Obstruction with a transition point. White count 2.6 hemoglobin 13.5 potassium 4.4 creatinine 0.9 Small bowel x-ray-small bowel distended Computed tomography scan of the abdomen-generally second-gallstones. Dilated small bowels. Assessment: -Partial small bowel obstruction , followed by lysis of adhesions on October 26. NG tube to suction in place. -Gallstones asymptomatic -Essential hypertension -Anxiety not otherwise specified Plan: NG tube. IV Zosyn. IV fluids. Continue current care.
[2020-10-29] MEDS: PIPERACILLIN-TAZOBACTAM 3.375 GM in SODIUM CHLORIDE 0.9% 100 ML IVPB SCH ×3 (03:11→19:02)
[2020-10-29] MEDS: SODIUM CHLORIDE 0.9% 1,000 ML IV SCH ×4 (04:14→23:13)
[2020-10-29] MEDS: LACTATED RINGERS 1,000 ML IV SCH (04:51)
[2020-10-29 06:44] LABS: Basophils % (A) 0 %; Eosinophils # (A) 0.1 k/uL (0-0.7); Eosinophils % (A) 1 %; HCT 35.3 % (34.0-46.0); HGB 11.2 gm/dL (11.4-16.0); Lymphocytes # (A) 0.8 k/uL (1.0-4.8); Lymphocytes % (A) 8 %; MCH 29.8 pg (25.0-35.0); MCHC 31.8 g/dL (31.0-37.0); MCV 93.9 fL (80.0-100.0); Mean Platelet Volume 8.1; Monocytes # (A) 0.6 k/uL (0-1.0); Monocytes % (A) 5 %; Neutrophils # (A) 9.2 k/uL (1.3-7.7); Neutrophils % (A) 85 %; Platelet Count 236 k/uL (150-450); RBC 3.77 m/uL (3.80-5.40); WBC 10.8 k/uL (3.8-10.6)
[2020-10-29] MEDS: HYDROmorphone 0.5 MG/0.5 ML SYRINGE IVP PRN ×2 (07:56→21:15)
[2020-10-29] MEDS: HEPARIN SODIUM,PORCINE 5,000 UNIT/ML 1 ML VIAL SQ SCH ×3 (07:56→23:11)
[2020-10-29] MEDS: LOSARTAN 50 MG TAB PO SCH ×2 (07:57→20:36)
[2020-10-29] MEDS: METOPROLOL TARTRATE 25 MG TAB PO SCH ×2 (07:57→20:36)
[2020-10-29] MEDS: PANTOPRAZOLE 40 MG/10 ML VIAL IV SCH (07:57)
[2020-10-29 09:25] LABS: African American GFR (CKD) 77.9 (60.0-200.0); Anion Gap 9.1 mmol/L (4.00-12.00); Calcium 8.2 mg/dL (8.7-10.3); Carbon Dioxide 23.9 mmol/L (21.6-31.8); Non-African American GFR(CKD) 67.2 (60.0-200.0); Potassium 3.5 mmol/L (3.5-5.5)
--- NOTE | 2020-10-29 11:42 | P.PN ---
Progress Note - Text Progress Note Date: 10/29/20 Patient is resting comfortably in her bed. She has no significant pain. She is now having significant flatus. On exam vital signs are stable. Abdomen soft. Incisions clean and intact. Patient will continue to remain nothing by mouth until she has significant bowel function.
[2020-10-29] MEDS: ALPRAZolam 0.25 MG TAB PO SCH (20:36)
--- NOTE | 2020-10-29 23:09 | P.PN ---
Progress Note - Text Progress Note Date: 10/29/20 Presenting complaint: Abdominal pain Interval history: Patient presented 1 day of abdominal pain. Admitted with a diagnosis of partial small bowel obstruction. NG tube was placed. October 26-underwent lyses of adhesions Today-NG tube in place. Pain control. No flatus. Comfortable. Laying in bed. Review of systems: Was done for constitutional, cardiovascular, GI, pulmonary. relevant finding as above Active Medications Alprazolam (Alprazolam 0.25 Mg Tab) 0.25 mg PO BID PRN PRN Reason: Anxiety Last Admin: 10/26/20 08:47 Dose: 0.25 mg Documented by: Alprazolam (Alprazolam 0.25 Mg Tab) 0.25 mg PO HS [facility] Last Admin: 10/29/20 20:36 Dose: 0.25 mg Documented by: Heparin Sodium (Porcine) (Heparin Sodium,Porcine 5,000 Unit/Ml 1 Ml Vial) 5,000 unit SQ Q8HR [facility] Last Admin: 10/29/20 15:07 Dose: 5,000 unit Documented by: Hydromorphone HCl (Hydromorphone 0.5 Mg/0.5 Ml Syringe) 0.5 mg IVP Q3HR PRN PRN Reason: Pain Last Admin: 10/29/20 21:15 Dose: 0.5 mg Documented by: Sodium Chloride (Saline 0.9%) 1,000 mls @ 125 mls/hr IV .Q8H [facility] Last Admin: 10/29/20 20:36 Dose: 125 mls/hr Documented by: Piperacillin Sod/Tazobactam (Sod 3.375 gm/ Sodium Chloride) 100 mls @ 25 mls/hr IVPB Q8H [facility] Last Admin: 10/29/20 19:02 Dose: 25 mls/hr Documented by: Lactated Ringer's (Lactated Ringers) 1,000 mls @ 20 mls/hr IV .Q24H [facility] Last Admin: 10/29/20 04:51 Dose: Not Given Documented by: Lidocaine HCl (Lidocaine 1% (10mg/Ml) For Iv Start) 0.1 ml INTRADERMA PER PROTOCOL PRN PRN Reason: IV Start Losartan Potassium (Losartan 50 Mg Tab) 50 mg PO BID [facility] Last Admin: 10/29/20 20:36 Dose: 50 mg Documented by: Metoprolol Tartrate (Metoprolol Tartrate 25 Mg Tab) 25 mg PO BID [facility] Last Admin: 10/29/20 20:36 Dose: 25 mg Documented by: Naloxone HCl (Naloxone 0.4 Mg/Ml 1 Ml Vial) 0.2 mg IV Q2M PRN PRN Reason: Opioid Reversal Ondansetron HCl (Ondansetron 4 Mg/2 Ml Vial) 4 mg IVP Q6HR PRN PRN Reason: Nausea Pantoprazole Sodium (Pantoprazole 40 Mg/10 Ml Vial) 40 mg IV DAILY [facility] Last Admin: 10/29/20 07:57 Dose: 40 mg Documented by: On examination: VITAL SIGNS: 97.8, 84, 16, 104/57, 95% room air GENERAL APPEARANCE: In bed, NG tube HEENT: Normal external appearance of nose and ear. Oral cavity dry EYES: Pupils equal. Conjunctiva normal. NECK: JVD not raised. Mass not palpable. RESPIRATORY: Respiratory effort normal. Lungs clear to auscultation. CARDIOVASCULAR: First and second sounds normal. No edema. ABDOMEN: Soft. Mild tenderness, dressing over the incision Liver and spleen not palpable.. No mass palpable. PSYCHIATRY: Alert and oriented x3. Mood and affect normal. INVESTIGATIONS, reviewed in the clinical context: October 29: White count 10.8 hemoglobin 9.2 potassium 3.5 creatinine 0.8 October 28: White count 11.9 hemoglobin 11.7 potassium 3.7 crit 0.98 October 27: White count 11.5 hemoglobin 12.1 potassium 3.8 creatinine 1 October 26: White count 7.9 hemoglobin 12.3 potassium 3.7 creatinine 0.8 October: White count 8.5 hemoglobin 13.2 potassium 3.9 creatinine 0.9 to. October: Small bowel follow-through. Obstruction with a transition point. White count 2.6 hemoglobin 13.5 potassium 4.4 creatinine 0.9 Small bowel x-ray-small bowel distended Computed tomography scan of the abdomen-generally second-gallstones. Dilated small bowels. Assessment: -Partial small bowel obstruction , followed by lysis of adhesions on October 26. NG tube to suction in place. -Gallstones asymptomatic -Essential hypertension -Anxiety not otherwise specified -Hypernatremia from freewater deficit. Plan: NG tube. IV Zosyn. Increase IV fluids to 1 30 mL an hour. Repeat labs. Thank you Dr. Griffith
[2020-10-30] MEDS: PIPERACILLIN-TAZOBACTAM 3.375 GM in SODIUM CHLORIDE 0.9% 100 ML IVPB SCH ×2 (03:03→11:41)
[2020-10-30] MEDS: LACTATED RINGERS 1,000 ML IV SCH (04:21)
[2020-10-30] MEDS: SODIUM CHLORIDE 0.9% 1,000 ML IV SCH ×3 (04:23→21:23)
[2020-10-30] MEDS: ALPRAZolam 0.25 MG TAB PO PRN (09:28)
[2020-10-30] MEDS: HEPARIN SODIUM,PORCINE 5,000 UNIT/ML 1 ML VIAL SQ SCH ×3 (09:29→23:04)
[2020-10-30] MEDS: METOPROLOL TARTRATE 25 MG TAB PO SCH ×2 (09:29→20:22)
[2020-10-30] MEDS: LOSARTAN 50 MG TAB PO SCH ×2 (09:29→20:22)
[2020-10-30 10:42] LABS: African American GFR (CKD) 91.6 (60.0-200.0); Anion Gap 7.7 mmol/L (4.00-12.00); BUN/Creat Ratio 18.57 Ratio (12.00-20.00); Calcium 8.1 mg/dL (8.7-10.3); Carbon Dioxide 27.3 mmol/L (21.6-31.8)
--- NOTE | 2020-10-30 11:00 | P.PN ---
Progress Note - Text Progress Note Date: 10/30/20 Patient resting comfortably bed. She has some mild incisional pain. On exam vital signs are stable. Abdomen soft. It. Patient will continue to be on sips of clears. We will advance her diet once her bowel function returns.
[2020-10-30] MEDS ORDERED: POTASSIUM CHLORIDE ER 20 MEQ TAB.ER PO STA ×2 (11:11→21:04)
--- NOTE | 2020-10-30 11:43 | P.PN ---
Subjective Progress Note Date: 10/30/20 CHIEF COMPLAINT: Cardiac clearance HISTORY OF PRESENT ILLNESS: 10/26/2020 This is a 85-year-old female with a past medical history significant for hypertension and anxiety. Patient follows in the office with Dr. Wilkes. We have been asked to see the patient in consultation for cardiac clearance. Patient is currently admitted to the hospital secondary to small bowel obstruction. She is scheduled for exploratory laparotomy today with Dr. Griffith. She denies chest pain or pressure. She reports shortness of breath because "I am thirsty". Patient does not appear short of breath during examination. Telemetry reveals sinus tachycardia. Patient states she used to be on beta blockers at one time but is not anymore. She reports "my heart rate is always fast. That is normal for me." 10/27/2020 Patient examined this morning at the bedside. She underwent exploratory laparotomy with lysis of adhesions with Dr. Griffith. Postop day #1. Patient reports some abdominal pain this morning. She denies chest pain or pressure. She denies shortness of breath. Heart rate has been controlled in the 80s. Blood pressure 129/68. 10/28/2020 Patient examined at the bedside. She denies chest pain or pressure. Denies shortness of breath. She states her abdominal pain has improved since yesterday. Blood pressure is stable. Heart rate is controlled. 10/30/2020 Cardiology was reconsulted secondary to patient having a 7 beat run of V. tach. Patient denies chest pain or pressure. Denies shortness of breath. Denies palpitations. She remains on metoprolol 25 mg twice a day. Patients blood pressure has been running high in the morning and then improves after administration of her and hypertensive medications. PHYSICAL EXAM: VITAL SIGNS: Reviewed. GENERAL: Well-developed in no acute distress. HEENT: Head is normocephalic. Pupils are equal, round. Sclerae anicteric. Mucous membranes of the mouth are moist. Neck supple. No JVD or thyromegaly LUNGS: Respirations even and unlabored. Lungs essentially clear to auscultation bilaterally. HEART: Regular rate and rhythm. S1 and S2 heard. Systolic murmur noted. EXTREMITIES: Normal range of motion. No clubbing or cyanosis. Peripheral pulses intact. No lower extremity edema NEUROLOGIC: Awake and alert. Oriented x 3. ASSESSMENT: Small bowel obstruction, status post exploratory laparotomy with lysis of adhesions Sinus tachycardia Paroxysmal supraventricular tachycardia Moderate aortic stenosis Hypertension Anxiety Nonsustained ventricular tachycardia PLAN: Continue telemetry monitoring Continue current cardiac medications Check potassium and magnesium levels as patient has been on a clear liquid diet since surgery. Supplement electrolytes as needed. Nurse practitioner note has been reviewed by physician. Signing provider agrees with the documented findings, assessment, and plan of care. Objective - Vital Signs Vital signs: Vital Signs Temp 97.8 F 10/30/20 08:00 Pulse 100 10/30/20 08:00 Resp 19 10/30/20 08:00 BP 160/78 10/30/20 08:00 Pulse Ox 97 10/30/20 08:00 Intake & Output 10/29/20 10/30/20 10/30/20 18:59 06:59 18:59 Output Total 600 Balance -600 Weight 46.72 kg Output: Urine 600 Other: Voiding Method Toilet Toilet # Voids 1 1 - Labs CBC & Chem 7: 10/29/20 06:23 10/30/20 05:47 Labs: Abnormal Lab Results - Last 24 Hours (Table) 10/30/20 Range/Units 05:47 Sodium 146 H (135-145) mmol/L Potassium 2.7 L* (3.5-5.5) mmol/L Chloride 111 H (96-109) mmol/L Calcium 8.1 L (8.7-10.3) mg/dL
[2020-10-30] MEDS: POTASSIUM CHLORIDE ER 20 MEQ TAB.ER PO SCH ×4 (13:37→18:15)
[2020-10-30] MEDS ORDERED: Potassium Replacement Protocol 1 EACH MISC MISCELLANE PRN (16:45)
[2020-10-30] MEDS: ALPRAZolam 0.25 MG TAB PO SCH (20:22)
[2020-10-30] MEDS: HYDROmorphone 0.5 MG/0.5 ML SYRINGE IVP PRN (21:22)
--- NOTE | 2020-10-30 21:25 | P.PN ---
Progress Note - Text Progress Note Date: 10/30/20 Presenting complaint: Abdominal pain Interval history: Patient presented 1 day of abdominal pain. Admitted with a diagnosis of partial small bowel obstruction. NG tube was placed. October 26-underwent lyses of adhesions Today-NG tube discontinued. Pass flatus. Feels better. Has been up in a chair. Review of systems: Was done for constitutional, cardiovascular, GI, pulmonary. relevant finding as above Active Medications Alprazolam (Alprazolam 0.25 Mg Tab) 0.25 mg PO BID PRN PRN Reason: Anxiety Last Admin: 10/30/20 09:28 Dose: 0.25 mg Documented by: Alprazolam (Alprazolam 0.25 Mg Tab) 0.25 mg PO HS COUNT INCLUDES THE [facility] Last Admin: 10/30/20 20:22 Dose: 0.25 mg Documented by: Heparin Sodium (Porcine) (Heparin Sodium,Porcine 5,000 Unit/Ml 1 Ml Vial) 5,000 unit SQ Q8HR COUNT INCLUDES THE [facility] Last Admin: 10/30/20 16:07 Dose: 5,000 unit Documented by: Hydromorphone HCl (Hydromorphone 0.5 Mg/0.5 Ml Syringe) 0.5 mg IVP Q3HR PRN PRN Reason: Pain Last Admin: 10/30/20 21:22 Dose: 0.5 mg Documented by: Lactated Ringer's (Lactated Ringers) 1,000 mls @ 20 mls/hr IV .Q24H COUNT INCLUDES THE [facility] Last Admin: 10/30/20 04:21 Dose: Not Given Documented by: Sodium Chloride (Saline 0.9%) 1,000 mls @ 130 mls/hr IV .Q7H42M COUNT INCLUDES THE [facility] Last Admin: 10/30/20 21:23 Dose: 130 mls/hr Documented by: Lidocaine HCl (Lidocaine 1% (10mg/Ml) For Iv Start) 0.1 ml INTRADERMA PER PROTOCOL PRN PRN Reason: IV Start Losartan Potassium (Losartan 50 Mg Tab) 50 mg PO BID COUNT INCLUDES THE [facility] Last Admin: 10/30/20 20:22 Dose: 50 mg Documented by: Metoprolol Tartrate (Metoprolol Tartrate 25 Mg Tab) 25 mg PO BID COUNT INCLUDES THE [facility] Last Admin: 10/30/20 20:22 Dose: 25 mg Documented by: Miscellaneous Information (Potassium Replacement Protocol 1 Each Misc) 1 each MISCELLANE DAILY PRN; Protocol PRN Reason: Per Protocol Naloxone HCl (Naloxone 0.4 Mg/Ml 1 Ml Vial) 0.2 mg IV Q2M PRN PRN Reason: Opioid Reversal Ondansetron HCl (Ondansetron 4 Mg/2 Ml Vial) 4 mg IVP Q6HR PRN PRN Reason: Nausea On examination: VITAL SIGNS: 97.5, 92, 18, 160 or 77, 98% room air GENERAL APPEARANCE: Laying in bed, NG tube discontinued HEENT: Normal external appearance of nose and ear. Oral cavity dry EYES: Pupils equal. Conjunctiva normal. NECK: JVD not raised. Mass not palpable. RESPIRATORY: Respiratory effort normal. Lungs clear to auscultation. CARDIOVASCULAR: First and second sounds normal. No edema. ABDOMEN: Soft. Mild tenderness, dressing over the incision Liver and spleen not palpable.. No mass palpable. PSYCHIATRY: Alert and oriented x3. Mood and affect normal. INVESTIGATIONS, reviewed in the clinical context: Potassium 3.7 October 29: White count 10.8 hemoglobin 9.2 potassium 3.5 creatinine 0.8 October 28: White count 11.9 hemoglobin 11.7 potassium 3.7 crit 0.98 October 27: White count 11.5 hemoglobin 12.1 potassium 3.8 creatinine 1 October 26: White count 7.9 hemoglobin 12.3 potassium 3.7 creatinine 0.8 October: White count 8.5 hemoglobin 13.2 potassium 3.9 creatinine 0.9 to. October: Small bowel follow-through. Obstruction with a transition point. White count 2.6 hemoglobin 13.5 potassium 4.4 creatinine 0.9 Small bowel x-ray-small bowel distended Computed tomography scan of the abdomen-generally second-gallstones. Dilated small bowels. Assessment: -Partial small bowel obstruction , followed by lysis of adhesions on October 26. NG tube to suction in place. Discontinued on October 30 -Gallstones asymptomatic -Essential hypertension -Anxiety not otherwise specified -Hypernatremia from freewater deficit. Plan: IV Zosyn. Continue IV fluids. P BMP in the morning. Thank you Dr. Griffith
[2020-10-31] MEDS: LACTATED RINGERS 1,000 ML IV SCH (05:08)
[2020-10-31] MEDS: SODIUM CHLORIDE 0.9% 1,000 ML IV SCH ×2 (05:31→13:45)
[2020-10-31] MEDS: METOPROLOL TARTRATE 25 MG TAB PO SCH ×2 (07:27→20:31)
[2020-10-31] MEDS: LOSARTAN 50 MG TAB PO SCH ×2 (07:27→20:31)
[2020-10-31] MEDS: HEPARIN SODIUM,PORCINE 5,000 UNIT/ML 1 ML VIAL SQ SCH ×3 (07:28→22:58)
[2020-10-31 09:00] LABS: Basophils # (A) 0.1 k/uL (0-0.2); Basophils % (A) 1 %; Eosinophils # (A) 0.6 k/uL (0-0.7); Eosinophils % (A) 6 %; HCT 36.3 % (34.0-46.0); HGB 12.5 gm/dL (11.4-16.0); Lymphocytes # (A) 1.4 k/uL (1.0-4.8); Lymphocytes % (A) 16 %; MCH 31.4 pg (25.0-35.0); MCHC 34.6 g/dL (31.0-37.0); MCV 90.8 fL (80.0-100.0); Mean Platelet Volume 9.2; Monocytes # (A) 0.5 k/uL (0-1.0); Monocytes % (A) 6 %; Neutrophils # (A) 6.2 k/uL (1.3-7.7); Neutrophils % (A) 70 %; Platelet Count 254 k/uL (150-450); RBC 3.99 m/uL (3.80-5.40); RDW 13.8 % (11.5-15.5); WBC 8.9 k/uL (3.8-10.6)
[2020-10-31 11:09] LABS: Potassium 2.7 mmol/L (3.5-5.5)
[2020-10-31 11:43] LABS: African American GFR (CKD) 96.3 (60.0-200.0); Anion Gap 7.2 mmol/L (4.00-12.00); BUN/Creat Ratio 11.67 Ratio (12.00-20.00); Calcium 7.7 mg/dL (8.7-10.3); Carbon Dioxide 27.8 mmol/L (21.6-31.8); Non-African American GFR(CKD) 83.1 (60.0-200.0); Potassium 3.5 mmol/L (3.5-5.5)
[2020-10-31] MEDS ORDERED: traMADol 50 MG TAB PO PRN (13:32)
--- NOTE | 2020-10-31 13:33 | P.PN ---
Subjective Progress Note Date: 10/31/20 CHIEF COMPLAINT: Abdominal pain HISTORY OF PRESENT ILLNESS: Patient is being followed for small bowel obs truction. She is status post exploratory laparotomy with lysis of adhesions. She denies abdominal pain. Denies any nausea or vomiting. She is now passing gas and has had a few small bowel movements smears. Afebrile. WBC 8.9 PHYSICAL EXAM: VITAL SIGNS: Reviewed. GENERAL: Well-developed in no acute distress. HEENT: No sclera icterus. Extraocular movements grossly intact. Moist buccal mucosa. Head is atraumatic, normocephalic. ABDOMEN: Soft. Nondistended incision site some dried blood noted. Otherwise clean dry and intact NEUROLOGIC: Alert and oriented. Cranial nerves II through XII grossly intact. ASSESSMENT: 1. Small bowel obstruction status post exploratory laparotomy with lysis of adhesions PLAN: -Advance diet to regular -Add ultram as needed for pain -Encourage patient to ambulate and use incentive spirometer -Continue GI prophylaxis Protonix and DVT prophylaxis subcu heparin Physician Home Theater Expert note has been reviewed by physician. Signing provider agrees with the documented findings, assessment, and plan of care. Objective - Vital Signs Vital signs: Vital Signs Temp 97.9 F 10/31/20 08:00 Pulse 92 10/31/20 08:00 Resp 16 10/31/20 08:00 BP 173/85 10/31/20 08:00 Pulse Ox 96 10/31/20 08:00 Intake & Output 10/30/20 10/31/20 10/31/20 18:59 06:59 18:59 Weight 46.72 kg 46.72 kg Other: Voiding Method Toilet Toilet Toilet # Voids 1 # Bowel Movements 3 - Labs CBC & Chem 7: 10/31/20 06:38 10/31/20 06:38 Labs: Abnormal Lab Results - Last 24 Hours (Table) 10/30/20 10/30/20 10/31/20 Range/Units 05:47 16:04 06:38 Potassium 2.7 L* 3.3 L (3.5-5.5) mmol/L Chloride 110 H (96-109) mmol/L BUN 7.0 L (9.0-27.0) mg/dL BUN/Creatinine Ratio 11.67 L (12.00-20.00) Ratio Calcium 7.7 L (8.7-10.3) mg/dL
--- NOTE | 2020-10-31 14:28 | P.PN ---
Subjective This is a pleasant 85-year-old female past medical history significant for hypertension and anxiety. She follows in the office with Dr. Temple. She is seen and examined resting comfortably lying flat in no acute distress. She is status post exploratory laparotomy with lysis of adhesions. She is currently on a clear liquid diet however she states she is hungry and wants real food. She is passing gas and has had a bowel movement. She denies symptoms of chest pain, shortness of breath, dizziness or palpitations. Blood pressure 173/85 heart rate 92 afebrile maintaining oxygen saturation on room air. Laboratory data reviewed, CBC unremarkable, BMP pending. Currently maintained on losartan 50 mg twice a day and Lopressor 25 mg twice a day. GENERAL: Well-appearing, well-nourished and in no acute distress. NECK: Supple without JVD or thyromegaly. LUNGS: Breath sounds clear to auscultation bilaterally. Respiration equal and unlabored. No wheezes, rales or rhonchi. HEART: Regular rate and rhythm with systolic ejection murmur at the base, no rubs or gallops. S1 and S2 heard. EXTREMITIES: Normal range of motion, no edema. No clubbing or cyanosis. Peripheral pulses intact. ASSESSMENT Small bowel obstruction status post exploratory laparotomy with lysis of adhesions Sinus tachycardia Nonsustained ventricular tachycardia in the setting of hypokalemia Hypokalemia, resolved Hypertension Aortic stenosis, moderate PLAN Clinically stable from a cardiac perspective. There has been no more evidence of ventricular arrhythmia on telemetry tracings. Continue to supplement electrolytes as needed per protocol. We will follow along as needed, follow up in the office with Dr. Dr. Temple upon discharge. Nurse Practitioner note has been reviewed, I agree with a documented findings and plan of care. Patient was seen and examined. Objective - Vital Signs Vital signs: Vital Signs Temp 97.9 F 10/31/20 08:00 Pulse 92 10/31/20 08:00 Resp 16 10/31/20 08:00 BP 173/85 10/31/20 08:00 Pulse Ox 96 10/31/20 08:00 Intake & Output 10/30/20 10/31/20 10/31/20 18:59 06:59 18:59 Weight 46.72 kg Other: Voiding Method Toilet Toilet Toilet # Voids 1 # Bowel Movements 3 - Labs CBC & Chem 7: 10/31/20 06:38 10/30/20 20:05 Labs: Abnormal Lab Results - Last 24 Hours (Table) 10/30/20 10/30/20 Range/Units 05:47 16:04 Sodium 146 H (135-145) mmol/L Potassium 2.7 L* 3.3 L (3.5-5.5) mmol/L Chloride 111 H (96-109) mmol/L Calcium 8.1 L (8.7-10.3) mg/dL
[2020-10-31] MEDS: HYDROmorphone 0.5 MG/0.5 ML SYRINGE IVP PRN (20:31)
[2020-10-31] MEDS: ALPRAZolam 0.25 MG TAB PO SCH (20:31)
--- NOTE | 2020-10-31 20:35 | P.PN ---
Progress Note - Text Progress Note Date: 10/31/20 Presenting complaint: Abdominal pain Interval history: Patient presented 1 day of abdominal pain. Admitted with a diagnosis of partial small bowel obstruction. NG tube was placed. October 26-underwent lyses of adhesions Today-tolerating full liquids. Diet advanced. Had bowel movement. No nausea vomiting. Feeling better. Has been out of bed. Review of systems: Was done for constitutional, cardiovascular, GI, pulmonary. relevant finding as above Active Medications Alprazolam (Alprazolam 0.25 Mg Tab) 0.25 mg PO BID PRN PRN Reason: Anxiety Last Admin: 10/30/20 09:28 Dose: 0.25 mg Documented by: Alprazolam (Alprazolam 0.25 Mg Tab) 0.25 mg PO HS [facility] Last Admin: 10/30/20 20:22 Dose: 0.25 mg Documented by: Heparin Sodium (Porcine) (Heparin Sodium,Porcine 5,000 Unit/Ml 1 Ml Vial) 5,000 unit SQ Q8HR [facility] Last Admin: 10/31/20 15:03 Dose: 5,000 unit Documented by: Hydromorphone HCl (Hydromorphone 0.5 Mg/0.5 Ml Syringe) 0.5 mg IVP Q3HR PRN PRN Reason: Pain Last Admin: 10/30/20 21:22 Dose: 0.5 mg Documented by: Lactated Ringer's (Lactated Ringers) 1,000 mls @ 20 mls/hr IV .Q24H [facility] Last Admin: 10/31/20 05:08 Dose: Not Given Documented by: Sodium Chloride (Saline 0.9%) 1,000 mls @ 130 mls/hr IV .Q7H42M [facility] Last Admin: 10/31/20 13:45 Dose: 130 mls/hr Documented by: Lidocaine HCl (Lidocaine 1% (10mg/Ml) For Iv Start) 0.1 ml INTRADERMA PER PROTOCOL PRN PRN Reason: IV Start Losartan Potassium (Losartan 50 Mg Tab) 50 mg PO BID [facility] Last Admin: 10/31/20 07:27 Dose: 50 mg Documented by: Metoprolol Tartrate (Metoprolol Tartrate 25 Mg Tab) 25 mg PO BID [facility] Last Admin: 10/31/20 07:27 Dose: 25 mg Documented by: Miscellaneous Information (Potassium Replacement Protocol 1 Each Misc) 1 each MISCELLANE DAILY PRN; Protocol PRN Reason: Per Protocol Naloxone HCl (Naloxone 0.4 Mg/Ml 1 Ml Vial) 0.2 mg IV Q2M PRN PRN Reason: Opioid Reversal Ondansetron HCl (Ondansetron 4 Mg/2 Ml Vial) 4 mg IVP Q6HR PRN PRN Reason: Nausea Tramadol HCl (Tramadol 50 Mg Tab) 50 mg PO TID PRN PRN Reason: Pain On examination: VITAL SIGNS: 98.1, 98, 16, 157 with 75, 96% room air GENERAL APPEARANCE: Reclining in bed, comfortable HEENT: Normal external appearance of nose and ear. Oral cavity normal EYES: Pupils equal. Conjunctiva normal. NECK: JVD not raised. Mass not palpable. RESPIRATORY: Respiratory effort normal. Lungs clear to auscultation. CARDIOVASCULAR: First and second sounds normal. No edema. ABDOMEN: Soft. Mild tenderness, dressing over the incision Liver and spleen not palpable.. No mass palpable. PSYCHIATRY: Alert and oriented x3. Mood and affect normal. INVESTIGATIONS, reviewed in the clinical context: October 31: White count 8.9 hemoglobin 12.5 potassium 3.5 creatinine 0.6 Potassium 3.7 October 29: White count 10.8 hemoglobin 9.2 potassium 3.5 creatinine 0.8 October 28: White count 11.9 hemoglobin 11.7 potassium 3.7 crit 0.98 October 27: White count 11.5 hemoglobin 12.1 potassium 3.8 creatinine 1 October 26: White count 7.9 hemoglobin 12.3 potassium 3.7 creatinine 0.8 October: White count 8.5 hemoglobin 13.2 potassium 3.9 creatinine 0.9 to. October: Small bowel follow-through. Obstruction with a transition point. White count 2.6 hemoglobin 13.5 potassium 4.4 creatinine 0.9 Small bowel x-ray-small bowel distended Computed tomography scan of the abdomen-generally second-gallstones. Dilated small bowels. Assessment: -Partial small bowel obstruction , followed by lysis of adhesions on October 26. NG tube to suction in place. Discontinued on October 30 -Gallstones asymptomatic -Essential hypertension -Anxiety not otherwise specified -Hypernatremia from freewater deficit.-Improved -Hypokalemia-replaced Plan: DC IV fluids. Encouraged tablet. Improving. Discussed with patient. Thank you Dr. Griffith
[2020-11-01] MEDS: LOSARTAN 50 MG TAB PO SCH (07:17)
[2020-11-01] MEDS: METOPROLOL TARTRATE 25 MG TAB PO SCH (07:17)
[2020-11-01] MEDS: HEPARIN SODIUM,PORCINE 5,000 UNIT/ML 1 ML VIAL SQ SCH (07:17)
[2020-11-01] MEDS: LACTATED RINGERS 1,000 ML IV SCH (07:20)
[2020-11-01 08:46] VITALS: BP 152/83; PULSE 92; RESP 18; TEMP 98.1
--- NOTE | 2020-11-01 11:55 | P.PN ---
Subjective Progress Note Date: 11/01/20 CHIEF COMPLAINT: Abdominal pain HISTORY OF PRESENT ILLNESS: Patient is being followed for small bowel obs truction. She is status post exploratory laparotomy with lysis of adhesions. She denies abdominal pain. Denies any nausea or vomiting. She is passing gas and having bowel movements. She is tolerating regular diet. Afebrile. PHYSICAL EXAM: VITAL SIGNS: Reviewed. GENERAL: Well-developed in no acute distress. HEENT: No sclera icterus. Extraocular movements grossly intact. Moist buccal mucosa. Head is atraumatic, normocephalic. ABDOMEN: Soft. Dressing clean dry and intact NEUROLOGIC: Alert and oriented. Cranial nerves II through XII grossly intact. ASSESSMENT: 1. Small bowel obstruction status post exploratory laparotomy with lysis of adhesions PLAN: -Patient is stable for discharge from surgical standpoint -Patient follow-up with Dr. Griffith in 1 week -Continue regular diet -Continue Ultram as needed for pain -Encourage patient to ambulate and use incentive spirometer -Continue GI prophylaxis Protonix and DVT prophylaxis subcu heparin Physician Structural Steel Erector note has been reviewed by physician. Signing provider agrees with the documented findings, assessment, and plan of care. Objective - Vital Signs Vital signs: Vital Signs Temp 98.1 F 11/01/20 08:00 Pulse 92 11/01/20 08:00 Resp 18 11/01/20 08:00 BP 152/83 11/01/20 08:00 Pulse Ox 95 11/01/20 08:00 Intake & Output 10/31/20 11/01/20 11/01/20 18:59 06:59 18:59 Weight 46.72 kg Other: Voiding Method Toilet Toilet Toilet # Voids 1 - Labs CBC & Chem 7: 10/31/20 06:38 10/31/20 06:38
--- NOTE | 2020-11-01 22:05 | P.DS ---
Providers Date of admission: 10/23/20 00:17 Expected date of discharge: 11/01/20 Attending physician: Yeyo Philip Consults: 10/29/20 11:39 Consult Physician Routine Consulting Provider: Carlos Sin Consult Reason/Comments: run of 7 Do you want consulting provider notified?: Already Contacted 10/31/20 09:39 Consult Physician Routine Consulting Provider: Mauri Griffith Consult Reason/Comments: abdominal pain Do you want consulting provider notified?: Already Contacted Primary care physician: Vidal [facility] Course: Presenting complaint: Abdominal pain Interval history: Patient presented 1 day of abdominal pain. Admitted with a diagnosis of partial small bowel obstruction. NG tube was placed. October 26-underwent lyses of adhesions Today-doing well. Tolerating a diet. Had a bowel movement. Questions were answered. Cleared by surgery. Mine Car Dispatcher: Dr. Griffith [facility] On examination: VITAL SIGNS: 98.1, 92, 18, 1 5283, 95% room air GENERAL APPEARANCE: Reclining in bed, comfortable HEENT: Normal external appearance of nose and ear. Oral cavity normal EYES: Pupils equal. Conjunctiva normal. NECK: JVD not raised. Mass not palpable. RESPIRATORY: Respiratory effort normal. Lungs clear to auscultation. CARDIOVASCULAR: First and second sounds normal. No edema. ABDOMEN: Soft. Mild tenderness, dressing over the incision Liver and spleen not palpable.. No mass palpable. PSYCHIATRY: Alert and oriented x3. Mood and affect normal. INVESTIGATIONS, reviewed in the clinical context: October 31: White count 8.9 hemoglobin 12.5 potassium 3.5 creatinine 0.6 Potassium 3.7 October 29: White count 10.8 hemoglobin 9.2 potassium 3.5 creatinine 0.8 October 28: White count 11.9 hemoglobin 11.7 potassium 3.7 crit 0.98 October 27: White count 11.5 hemoglobin 12.1 potassium 3.8 creatinine 1 October 26: White count 7.9 hemoglobin 12.3 potassium 3.7 creatinine 0.8 October: White count 8.5 hemoglobin 13.2 potassium 3.9 creatinine 0.9 to. October: Small bowel follow-through. Obstruction with a transition point. White count 2.6 hemoglobin 13.5 potassium 4.4 creatinine 0.9 Small bowel x-ray-small bowel distended Computed tomography scan of the abdomen-generally second-gallstones. Dilated small bowels. Assessment: -Partial small bowel obstruction , followed by lysis of adhesions on October 26. NG tube to suction in place. Discontinued on October 30 -Gallstones asymptomatic -Essential hypertension -Anxiety not otherwise specified -Hypernatremia from freewater deficit.-Improved -Hypokalemia-replaced disposition: Home Patient Condition at Discharge: Stable Plan - Discharge Summary Discharge Rx Participant: No New Discharge Prescriptions: New Docusate [Colace] 100 mg PO BID #30 capsule traMADol HCL [Ultram] 50 mg PO TID PRN 3 Days #9 tab PRN Reason: Pain Metoprolol Tartrate [Lopressor] 25 mg PO BID #60 tab Continue Vitamin C/Biotin [Hair, Skin and Nails] 1 tab PO HS Losartan Potassium [Cozaar] 50 mg PO BID ALPRAZolam [Xanax] 0.25 mg PO BID PRN PRN Reason: Anxiety ALPRAZolam [Xanax] 0.25 mg PO HS Cyanocobalamin [Vitamin B-12] 500 mcg PO HS Discharge Medication List ALPRAZolam [Xanax] 0.25 mg PO BID PRN 10/22/20 [History] ALPRAZolam [Xanax] 0.25 mg PO HS 10/22/20 [History] Cyanocobalamin [Vitamin B-12] 500 mcg PO HS 10/22/20 [History] Losartan Potassium [Cozaar] 50 mg PO BID 10/22/20 [History] Vitamin C/Biotin [Hair, Skin and Nails] 1 tab PO HS 10/22/20 [History] Docusate [Colace] 100 mg PO BID #30 capsule 11/01/20 [Rx] Metoprolol Tartrate [Lopressor] 25 mg PO BID #60 tab 11/01/20 [Rx] traMADol HCL [Ultram] 50 mg PO TID PRN 3 Days #9 tab 11/01/20 [Rx] Follow up Appointment(s)/Referral(s): Vidal Beaulieu MD [Primary Care Provider] - 1-2 days Arlette Temple MD [STAFF PHYSICIAN] - 11/14/20 3:30 pm (At [facility] in front of [address]) [facility] Visiting Nurse, [NON-STAFF] - Mauri Griffith MD [STAFF PHYSICIAN] - 11/08/20 2:30 pm Patient Instructions/Handouts: Exploratory Laparotomy (DC) Activity/Diet/Wound Care/Special Instructions: No driving while taking [place] No lifting over 10 pounds You may shower. No soaking or tub baths for 2 weeks Very light activity until you are reevaluated at your follow up appointment with your surgeon Discharge/Stand Alone Forms: Help In The Home Discharge Disposition: HOME SELF-CARE
--- NOTE | 2020-11-16 16:34 | P.OP ---
Date of Procedure: 10/26/20 Preoperative Diagnosis: Small bowel obstruction Postoperative Diagnosis: Small bowel obstruction secondary to adhesions Procedure(s) Performed: Exploratory laparotomy Lysis of adhesion Anesthesia: ALBERTO Surgeon: Mauri Griffith Estimated Blood Loss (ml): 5 Pathology: none sent Condition: stable Disposition: PACU Description of Procedure: The patient's placed on the operating table in supine position. She received general anesthesia. Her abdomen was prepped and draped usual sterile fashion. A midline skin incision was made then using cautery the subcutaneous tissue divided. The fascia was then divided midline. Patient appeared to have dilated small bowel. Small bowel was run down towards the right lower quadrant and there was adhesive band which was lysed. The bowel was then run from the ligament of Treitz to the cecal valve. No other obstruction was seen. The fascia was then closed with looped #1 PDS suture. Skin was closed chris. Patient top she will was sent to recovery room stable condition.
== END 2020-11-01 14:55 | disposition home or self-care (01) | DRG 336 ==
LOC: EC 21:40 → 4SSUR 10-23 00:17
PROVIDERS: ADMIT Hospitalist; ATTEND Hospitalist
PROC: 0D9670Z Drainage of Stomach with Drainage Device, Via Natural or Artificial Opening (ICD-10-PCS; 2020-10-23)
PROC: 0DN80ZZ Release Small Intestine, Open Approach (ICD-10-PCS; principal; 2020-10-26 09:10)
DX: K56.51 Intestinal adhesions [bands], with partial obstruction (principal); E87.0 Hyperosmolality and hypernatremia; I47.1 Supraventricular tachycardia; I47.2 Ventricular tachycardia; D72.829 Elevated white blood cell count, unspecified; E87.6 Hypokalemia; F32.9 Major depressive disorder, single episode, unspecified; F41.9 Anxiety disorder, unspecified; I10 Essential (primary) hypertension; I35.0 Nonrheumatic aortic (valve) stenosis; K80.20 Calculus of gallbladder without cholecystitis without obstruction; Z79.899 Other long term (current) drug therapy; R73.9 Hyperglycemia, unspecified; Z88.6 Allergy status to analgesic agent; Z88.5 Allergy status to narcotic agent
CPT/HCPCS: 36415; 74018; 74177; 74250; 80048; 80053; 81001; 82150; 83036; 83605; 83690; 83735; 84132; 84443; 84484; 85025; 85027; 93005; 93306; 96374; 99285

== ENCOUNTER 2022-10-29 05:47 | Inpatient (IN) | payer MEDICARE ==
[2022-10-25 11:22] VITALS: BMI 21.1
[~2022-10-29 05:47] MED LIST: ALPRAZolam 0.25 MG TAB PO PRN; ALPRAZolam 0.5 MG TAB PO PRN; DEXAMETHASONE SOD PHOSPHATE 4 MG/ML 1 ML VIAL IV ONE; MIDAZOLAM 2 MG/2 ML VIAL IV PRN; NITROGLYCERIN SL TABS 0.4 MG TAB SUBLINGUAL PRN; ONDANSETRON 4 MG/2 ML VIAL IVP ONE; SODIUM CHLORIDE 0.9% 1,000 ML in EMPTY BAG 1 BAG IV ONE
[2022-10-29 06:36] LABS: Glucose,Whole Blood 102 mg/dL (70-110)
[2022-10-29 06:49] LABS: Basophils # (A) 0.1 k/uL (0-0.2); Basophils % (A) 1 %; Eosinophils # (A) 0.5 k/uL (0-0.7); Eosinophils % (A) 5 %; HCT 43.6 % (34.0-46.0); HGB 14.5 gm/dL (11.4-16.0); Lymphocytes % (A) 22 %; MCH 30.3 pg (25.0-35.0); MCHC 33.2 g/dL (31.0-37.0); MCV 91.2 fL (80.0-100.0); Mean Platelet Volume 7.9; Monocytes # (A) 0.6 k/uL (0-1.0); Monocytes % (A) 6 %; Neutrophils # (A) 5.9 k/uL (1.3-7.7); Neutrophils % (A) 64 %; Platelet Count 241 k/uL (150-450); RBC 4.78 m/uL (3.80-5.40); WBC 9.1 k/uL (3.8-10.6)
[2022-10-29] MEDS ORDERED: fentaNYL (PF) 50 MCG/ML 2 ML AMP IV PRN (07:00)
--- NOTE | 2022-10-29 07:20 | P.GSHP ---
History of Present Illness H&P Date: 10/29/22 Chief Complaint: carotid stenosis 87 year old female with history of carotid stenosis noted to be greater than 90% on CTA and carotid doppler presents to the hospital for left TCAR and stenting. She denies any current lateralizing symptoms such as weakness, vision changes or speech issues. She denies any fevers, chills, chest pain or shortness of breath. - Review of Systems All systems: negative (what is mentioned in the PMH or HPI) Past Medical History Past Medical History: Hyperlipidemia, Hypertension History of Any Multi-Drug Resistant Organisms: None Reported Past Surgical History: No Surgical Hx Reported Additional Past Surgical History / Comment(s): bowel obstruction leading to lysis of adhesions Past Anesthesia/Blood Transfusion Reactions: No Reported Reaction Past Psychological History: Depression Smoking Status: Never smoker Past Alcohol Use History: None Reported Past Drug Use History: None Reported - Past Family History Mother Family Medical History: No Reported History Medications and Allergies Home Medications Medication Instructions Recorded Confirmed Type ALPRAZolam [Xanax] 0.25 mg PO TID 10/22/20 10/29/22 History Losartan Potassium [Cozaar] 50 mg PO BID 10/22/20 10/25/22 History Clopidogrel [Plavix] 75 mg PO DAILY 10/25/22 10/29/22 History Isosorbide Mononitrate ER [Imdur] 30 mg PO DAILY 10/25/22 10/25/22 History Metoprolol Tartrate [Lopressor] 50 mg PO BID 10/25/22 10/25/22 History Sertraline HCl [Zoloft] 50 mg PO DAILY 10/25/22 10/25/22 History cloNIDine HCL [Catapres] 0.1 mg PO TID 10/25/22 10/25/22 History Allergies Allergy/AdvReac Type Severity Reaction Status Date / Time acetaminophen Allergy Unknown Verified 10/29/22 06:16 alcohol Allergy Rash/Hives Verified 10/29/22 06:16 morphine Allergy Rash/Hives Verified 10/29/22 06:16 propoxyphene [From Darvon] Allergy Unknown Verified 10/29/22 06:16 Surgical - Exam Vital Signs Temp Pulse Resp BP Pulse Ox 98.6 F 96 18 208/98 95 10/29/22 06:40 10/29/22 06:40 10/29/22 06:40 10/29/22 06:40 10/29/22 06:40 palpable radial pulses bilaterally - General well developed, well nourished, no distress - Eyes PERRL, normal ocular movement - ENT normal pinna - Neck no masses - Respiratory normal expansion, normal respiratory effort - Cardiovascular Rhythm: regular - Abdomen Abdomen: soft, non tender - Integumentary no rash, no growths - Neurologic normal coordination, normal sensation - Musculoskeletal normal gait - Psychiatric oriented to time, oriented to person, oriented to place, speech is normal Results - Labs 10/29/22 06:20 - Imaging Additional studies: CTA neck and carotid doppler reviewed- LICA stenosis >80-90% Assessment and Plan Assessment: - Left ICA stenosis >90% Plan: - left TCAR today with stenting. - continue aspirin, plavix and statin
[2022-10-29 07:46] LABS: Calcium 9.5 mg/dL (8.4-10.2); Potassium 4.1 mmol/L (3.5-5.1)
[2022-10-29] MEDS ORDERED: HEPARIN SODIUM,PORCINE 5,000 UNIT/ML 1 ML VIAL ONE (08:25)
[2022-10-29] MEDS ORDERED: NITROGLYCERIN-D5W PMX 50 MG/250 ML BOTTLE IV ONE (08:25)
[2022-10-29] MEDS ORDERED: GLYCOPYRROLATE 0.2 MG/ML 2 ML VIAL ONE (08:25)
[2022-10-29] MEDS ORDERED: MIDAZOLAM 2 MG/2 ML VIAL ONE (08:25)
[2022-10-29] MEDS ORDERED: LABETALOL 5 MG/ML VIAL MDV ONE (08:25)
[2022-10-29] MEDS ORDERED: PROTAMINE SULFATE 10 MG/ML 5 ML VIAL IV ONE (08:25)
[2022-10-29] MEDS ORDERED: PHENYLEPHRINE-0.9% NACL SYG 1,000 MCG/10 ML SYRINGE ONE (08:25)
[2022-10-29] MEDS ORDERED: fentaNYL (PF) 50 MCG/ML 2 ML AMP ONE (08:25)
[2022-10-29] MEDS ORDERED: IOPAMIDOL-250 100ML BTL INTRAARTER ONE (08:58)
[2022-10-29] MEDS ORDERED: RX INFO: IV CONTRAST WAS GIVEN 1 EACH MISC MISCELLANE PRN (09:00)
[2022-10-29] MEDS ORDERED: MAG HYDROX/AL HYDROX/SIMETH 30 ML CUP PO PRN (09:20)
[2022-10-29] MEDS ORDERED: ATROPINE SULFATE 0.1 MG/ML 10ML SYRINGE IV PRN (09:20)
--- NOTE | 2022-10-29 09:23 | P.OP ---
Date of Procedure: 10/29/22 Description of Procedure: Preoperative diagnosis: Asymptomatic left internal carotid artery stenosis greater than 90% Postoperative diagnosis: Same Procedure: Left Transcarotid artery revascularization with stenting Surgeon: Yony Elizabeth DO Regional Sales Director: None Anesthesia: Local with sedation Complications: None Condition: Stable Flow reversal time: 10 minutes Stent length: 30 mm Contrast volume: 20 mL Indication for procedure: 87-year-old female with history of carotid stenosis originally presented to the office for routine follow-up and checkup. Her carotid was found to have significant increase in stenosis greater than 90% on carotid Doppler and CTA was then ordered which demonstrated again a focal area of greater than 80-90% stenosis. After discussion with possible treatment it was determined to perform a TCAR with stenting. She presents today for such procedure. Operative narrative: After written and informed consent was obtained the patient all risks benefits and competitions were described the patient was brought to the Auto Service Advisor and laid in a supine position. The area of the neck and groins were prepped and draped in usual sterile fashion after appropriate anesthetic was performed per the anesthesiologist. Cerebral oximetry was placed and followed throughout the case without significant decrease noted. A timeout was performed in normal fashion and antibiotics were administered prior to incision. Utilizing ultrasound the left common carotid artery was located and a trans verse incision was created overlying this area. Dissection was carried between the sternocleidomastoid musculature down to the carotid sheath. The sheath was then incised and the common carotid artery was located and dissected free in a circumferential manner and controlled with umbilical tape. Once controlled attention was placed down to the common femoral vein on the right and utilizing ultrasound the vein was cannulated and the 8-Welsh sheath was placed in normal fashion. Attention was then placed back to the carotid artery and the patient was administered heparin and followed with ACTs and redosed as needed for ACT above 200. A pursestring suture was then placed at the common carotid artery with 6-0 Prolene and utilizing a multipurpose needle the common carotid artery was accessed and wire was placed followed by a 4-Welsh sheath. Carotid angiogram was then obtained demonstrating significant stenosis greater than 90% in the internal carotid artery at the bifurcation. Stiff wire was then placed followed by the 8 Welsh [place] sheath. Flow reversal was then established with the en[employer] DESIGN STUDIO CONSULTANT system after patient's blood pressure was increased to above 160, heart rate above 60 and ACT above 250. 014 wire was then placed across the lesion followed by a 5.5 x 20 mm balloon and balloon angioplasty was performed followed by an 8 x 30 mm Silkroad stent. Postdilatation was not performed and final angiogram was obtained demonstrating complete resolution of the stenosis. All guidewires and catheters were removed and the sheath was removed and the arteriotomy was secured with the previously placed pursestring suture. Hemostasis was assured with Gelfoam and thrombin. The femoral sheath was also removed and pressure was held for hemostasis. The patient all procedur e well and was moving all extremities and following commands. She was then sent to PACU for recovery.
[2022-10-29] MEDS ORDERED: SODIUM CHLORIDE 0.9% 1,000 ML IV SCH (09:30)
[2022-10-29] MEDS ORDERED: THROMBIN (BOVINE) 5,000 UNIT VIAL TOPICAL ONE (09:31)
[2022-10-29] MEDS ORDERED: GELATIN SPONGE,ABSORB (LARGE) 1 EACH SPONGE TOPICAL ONE (09:32)
[2022-10-29] MEDS: ceFAZolin 2,000 MG in SODIUM CHLORIDE 0.9% 500 ML IRRIGATION ONE ×2 (09:33→12:04)
[2022-10-29] MEDS ORDERED: ceFAZolin 2,000 MG in SODIUM CHLORIDE 0.9% 500 ML IRRIGATION ONE ×4 (09:33)
[2022-10-29] MEDS ORDERED: SODIUM CHLORIDE IV ONE ×4 (09:35)
[2022-10-29] MEDS: SODIUM CHLORIDE IV ONE ×4 (09:35→12:04)
[2022-10-29] MEDS: HEPARIN SODIUM IV ONE ×4 (09:35→12:04)
[2022-10-29] MEDS ORDERED: HEPARIN SODIUM IV ONE ×4 (09:35)
[2022-10-29] MEDS ORDERED: SODIUM CHLORIDE 0.9% 500 ML BAG ONE (09:35)
[2022-10-29] MEDS ORDERED: HEPARIN SODIUM 1,000 UN/ML (10ML VL) ONE (09:35)
[2022-10-29] MEDS ORDERED: PHENYLEPHRINE 10 MG/ML VIAL IV ONE ×5 (09:36→09:58)
--- NOTE | 2022-10-29 09:36 | IR ---
EXAMINATION TYPE: IR stent intravas non coronary DATE OF EXAM: 10/29/2022 CLINICAL HISTORY: Left carotid stenosis. TECHNIQUE: Fluoroscopy. COMPARISON: CTA neck August 23, 2022. FINDINGS: Fluoroscopic guidance was provided during carotid angiogram with stent insertion procedure performed by Dr. Elizabeth. A total of 6.1 minutes of fluoroscopic time was utilized during the proc edure and 260 spot images was acquired. Please refer to procedure note for further details as I was n ot present nor performed procedure. IMPRESSION: As Above.
[2022-10-29] MEDS ORDERED: SODIUM CHLORIDE 0.9% 1,000 ML IV ONE (09:58)
[2022-10-29] MEDS: PHENYLEPHRINE 40 MG in SODIUM CHLORIDE 0.9% 250 ML IV SCH ×2 (10:11→11:58)
[2022-10-29 11:47] LABS: Glucose,Whole Blood 101 mg/dL (70-110)
[2022-10-29] MEDS: DEXMEDETOMIDINE/0.9% NACL(PMX) 400 MCG in EMPTY BAG 1 BAG IV SCH ×2 (12:04→12:05)
[2022-10-29] MEDS: LACTATED RINGERS 1,000 ML IV SCH ×2 (12:04→12:05)
[2022-10-29] MEDS ORDERED: ATORVASTATIN 40 MG TAB PO SCH (21:00)
[2022-10-30 04:55] LABS: African American GFR (CKD) >90 (>60 ml/min/1.73 sqM); Anion Gap 4 mmol/L; Blood Urea Nitrogen 14 mg/dL (7-17); Carbon Dioxide 22 mmol/L (22-30); Chloride 113 mmol/L (98-107); Glucose 98 mg/dL (74-99); Non-African American GFR(CKD) 84 (>60 ml/min/1.73 sqM); Potassium 3.6 mmol/L (3.5-5.1); Sodium 139 mmol/L (137-145)
[2022-10-30 05:04] LABS: Basophils % (A) 0 %; Eosinophils # (A) 0.1 k/uL (0-0.7); Eosinophils % (A) 1 %; HCT 33.8 % (34.0-46.0); Lymphocytes # (A) 1.4 k/uL (1.0-4.8); Lymphocytes % (A) 16 %; MCH 30.8 pg (25.0-35.0); MCHC 33.5 g/dL (31.0-37.0); MCV 91.8 fL (80.0-100.0); Mean Platelet Volume 8.4; Monocytes # (A) 0.5 k/uL (0-1.0); Monocytes % (A) 6 %; Neutrophils # (A) 6.5 k/uL (1.3-7.7); Neutrophils % (A) 75 %; Platelet Count 201 k/uL (150-450); RBC 3.68 m/uL (3.80-5.40); RDW 13.2 % (11.5-15.5); WBC 8.7 k/uL (3.8-10.6)
[2022-10-30] MEDS ORDERED: Potassium Replacement Protocol 1 EACH MISC MISCELLANE PRN (05:06)
[2022-10-30 05:10] LABS: HGB 11.3 gm/dL (11.4-16.0)
[2022-10-30] MEDS: LACTATED RINGERS 1,000 ML IV SCH (05:15)
[2022-10-30] MEDS: PHENYLEPHRINE 40 MG in SODIUM CHLORIDE 0.9% 250 ML IV SCH (05:15)
[2022-10-30] MEDS ORDERED: POTASSIUM CHLORIDE ER 20 MEQ TAB.ER PO SCH (06:00)
[2022-10-30] MEDS ORDERED: ASPIRIN 81 MG PO SCH (09:00)
[2022-10-30] MEDS ORDERED: CLOPIDOGREL 75 MG TAB PO SCH (09:00)
--- NOTE | 2022-10-30 11:44 | P.PN ---
Subjective Progress Note Date: 10/30/22 Principal diagnosis: Carotid stenosis status post trans-carotid artery revascularization Patient is seen and examined today in the ICU as a follow-up. She is postop day #1 for a left trans-carotid artery revascularization. Patient had some low blood pressures and was started on Howard. This morning her blood pressures have been maintaining in the 120s 1:30 systolically. She has not been up or ambulating yet. She is having some nausea and decreased appetite without any vomiting. She denies any focal deficits. She has been afebrile. Objective - Vital Signs Vital signs: Vital Signs Temp 98.7 F 10/30/22 08:00 Pulse 60 10/30/22 08:30 Resp 13 10/30/22 08:15 BP 93/47 10/30/22 09:00 Pulse Ox 94 L 10/30/22 08:15 FiO2 92 10/29/22 12:00 Intake & Output 10/29/22 10/30/22 10/30/22 18:59 06:59 18:59 Intake Total 1672.385 421.362 66.609 Output Total 900 Balance 772.385 421.362 66.609 Intake: IV 1202 100 60 Lactated Ringers 1,000 ml 100 60 @ 20 mls/hr IV .Q24H [facility] Rx#:[id number] Intake, IV Titration 470.385 201.362 6.609 Amount Phenylephrine 40 mg In 50.385 141.362 6.609 Sodium Chloride 0.9% 250 ml @ 1 MCG/KG/MIN 18.707 mls/hr IV .[id number] [facility] Rx #:[id number] Sodium Chloride 0.9% 1, 420 60 000 ml @ 60 mls/hr IV . [id number] [facility] Rx#:[id number] Oral 120 Output: Urine 900 Other: Voiding Method Toilet Bedside Commode # Voids 0 ABP, PAP, CO, CI - Last Documented Arterial Blood Pressure 122/36 - Exam General appearance: The patient is alert, oriented, appears in no acute distress. HET: Head is normocephalic and atraumatic. Pupils are equal and reactive. Neck: Supple without lymphadenopathy. Trachea midline. No left neck incision well approximated no hematoma noted. Heart: Regular. Lungs: Equal expansion, normal respiratory effort. Abdomen: Soft, nontender, nondistended. Extremities: Normal skin color and turgor. No edema. Right groin puncture site with minimal bruising, no hematoma noted. Neurological: No focal deficits. Strength and sensation are grossly intact. - Labs CBC & Chem 7: 10/30/22 04:35 10/30/22 04:35 Labs: Abnormal Lab Results - Last 24 Hours (Table) 10/30/22 10/30/22 Range/Units 04:35 04:35 RBC 3.68 L (3.80-5.40) m/uL Hgb 11.3 L D (11.4-16.0) gm/dL Hct 33.8 L (34.0-46.0) % Chloride 113 H (98-107) mmol/L Calcium 8.0 L (8.4-10.2) mg/dL Assessment and Plan Assessment: 1. Postop day #1 left transfer carotid artery revascularization with stenting 2. Asymptomatic left internal carotid artery stenosis greater than 90% 3. Hypotension Plan: 1. Discontinue Howard synephrine 2. Encourage ambulation 3. Diet as tolerated 4. Further recommendations forthcoming per vascular surgeon Anticipate discharge in the next 24-48 hours. The impression and plan of care has been dictated as directed. I performed a history and examination of this patient, discussed the same with the dictator. I agree with the dictator's note ,documented as a scribe. Any additional findings or plans will be noted.
[2022-10-30 12:06] VITALS: TEMP 98.6
--- NOTE | 2022-10-30 14:35 | P.CONS ---
History of Present Illness - Reason for Consult Consult date: 10/30/22 - History of Present Illness Patient is a 87-year-old female with history of hypertension and anxiety pres enting for elective left trans-carotid artery revascularization with stenting. [facility] has [facility] for medical management. Currently patient denies any chest pain, shortness of breath, abdominal pain, urinary or bowel complaints. She does have occasional nausea. She was slightly hypotensive postop. Currently, her vital signs have been within normal limits. Labs have been unremarkable. Patient is currently in the ICU for close monitoring. Patient seen and examined at bedside. Pertinent positives and negatives as discussed in HPI, a complete review of systems was performed and all other systems are negative. Vital signs reviewed General: nontoxic, no distress, appears at stated age Derm: warm, dry, left neck incision site clean and dry Head: atraumatic, normocephalic, symmetric Eyes: EOMI, no lid lag, anicteric sclera, pupils equal round reactive to light ENT: Nose and ears atraumatic Neck: No thyromegaly, supple Mouth: no lip lesion, mucus membranes moist Cardiovascular: S1S2 reg, no murmur, no edema Lungs: clear to auscultation bilateral, no rhonchi, no rales, no wheeze, no accessory muscle use Abdominal: soft, nontender to palpation, no guarding, no appreciable organomegaly Ext: no gross muscle atrophy, muscle strength muscle strength 5 out of 5 in all 4 extremities, no contractures Neuro: CN II-XII grossly intact Psych: Alert, oriented, appropriate affect Assessment/Plan: Left carotid artery atherosclerosis s/p Left trans-carotid artery revascularization with stenting - Aspirin, Plavix, statin - DVT prophylaxis per surgery - PT/OT Postop hypotension -Now off pressors History of hypertension -Not currently on any home medications, will reintroduce has outpatient once seen by PCP and vascular surgery Patient medically optimized for discharge home. Thank you for allowing us to participate in the care of this pleasant patient. Do not hesitate to contact us with questions. Someone can be reached from the [facility] hospitalist group all hours of the day at [phone] or via [employer]. Past Medical History Past Medical History: Hyperlipidemia, Hypertension History of Any Multi-Drug Resistant Organisms: None Reported Past Surgical History: No Surgical Hx Reported Additional Past Surgical History / Comment(s): bowel obstruction leading to lysis of adhesions Past Anesthesia/Blood Transfusion Reactions: No Reported Reaction Past Psychological History: Depression Smoking Status: Never smoker Past Alcohol Use History: None Reported Past Drug Use History: None Reported - Past Family History Mother Family Medical History: No Reported History Medications and Allergies Home Medications Medication Instructions Recorded Confirmed Type ALPRAZolam [Xanax] 0.25 mg PO TID 10/22/20 10/29/22 History Clopidogrel [Plavix] 75 mg PO DAILY 10/25/22 10/29/22 History Sertraline HCl [Zoloft] 50 mg PO DAILY 10/25/22 10/25/22 History Aspirin 81 mg PO DAILY tab 10/30/22 Rx Atorvastatin [Lipitor] 40 mg PO HS #30 tab 10/30/22 Rx Allergies Allergy/AdvReac Type Severity Reaction Status Date / Time acetaminophen Allergy Unknown Verified 10/29/22 06:16 alcohol Allergy Rash/Hives Verified 10/29/22 06:16 morphine Allergy Rash/Hives Verified 10/29/22 06:16 propoxyphene [From Darvon] Allergy Unknown Verified 10/29/22 06:16 Physical Exam Vitals: Vital Signs Temp Pulse Resp BP Pulse Ox 10/30/22 14:00 76 11 L 132/56 10/30/22 13:30 65 20 10/30/22 13:00 73 15 10/30/22 12:30 66 21 10/30/22 12:00 98.6 F 82 19 153/46 92 L 10/30/22 11:30 63 16 95 10/30/22 11:00 54 L 23 106/51 95 10/30/22 10:30 57 L 19 95 10/30/22 10:00 69 29 H 104/86 95 10/30/22 09:30 56 L 13 93 L 10/30/22 09:00 93/47 10/30/22 08:30 60 10/30/22 08:15 60 13 94 L 10/30/22 08:00 98.7 F 59 L 14 110/45 92 L 10/30/22 07:45 65 14 92 L 10/30/22 07:30 62 21 91 L 10/30/22 07:15 59 L 25 H 92 L 10/30/22 07:00 67 14 112/34 93 L 10/30/22 06:45 60 16 126/63 93 L 10/30/22 06:30 56 L 11 L 92 L 10/30/22 06:15 61 12 135/53 93 L 10/30/22 06:00 72 21 123/58 92 L 10/30/22 05:45 62 19 131/51 91 L 10/30/22 05:30 66 13 91 L 10/30/22 05:15 60 14 127/45 92 L 10/30/22 05:00 17 92 L 10/30/22 04:45 66 15 121/42 92 L 10/30/22 04:30 56 L 16 91 L 10/30/22 04:15 55 L 17 105/83 91 L 10/30/22 04:00 98.1 F 55 L 16 92 L 10/30/22 03:45 60 29 H 147/65 91 L 10/30/22 03:30 57 L 13 91 L 10/30/22 03:15 57 L 18 130/58 91 L 10/30/22 03:00 58 L 6 L 136/56 92 L 10/30/22 02:45 58 L 9 L 89 L 10/30/22 02:30 55 L 16 92 L 10/30/22 02:15 57 L 22 90 L 10/30/22 02:00 55 L 12 91 L 10/30/22 01:45 54 L 13 137/52 89 L 10/30/22 01:30 56 L 18 91 L 10/30/22 01:15 56 L 18 136/54 90 L 10/30/22 01:00 55 L 24 130/53 90 L 10/30/22 00:45 27 H 130/53 92 L 10/30/22 00:30 67 23 92 L 10/30/22 00:15 64 17 129/47 91 L 10/30/22 00:00 98.2 F 58 L 22 91 L 10/29/22 23:45 60 17 125/53 92 L 10/29/22 23:30 58 L 22 138/53 91 L 10/29/22 23:23 56 L 24 138/53 91 L 10/29/22 23:15 57 L 18 138/53 92 L 10/29/22 23:00 61 17 121/49 91 L 10/29/22 22:45 59 L 19 121/49 92 L 10/29/22 22:30 59 L 21 135/51 92 L 10/29/22 22:15 58 L 18 135/51 91 L 10/29/22 22:00 57 L 19 129/42 92 L 10/29/22 21:45 67 18 129/42 92 L 10/29/22 21:30 58 L 19 137/51 92 L 10/29/22 21:00 57 L 20 130/46 92 L 10/29/22 20:00 98.7 F 56 L 17 132/46 92 L 10/29/22 19:00 62 21 90 L 10/29/22 18:00 35 H 92 L 10/29/22 17:00 57 L 20 93 L 10/29/22 16:00 98.1 F 60 11 L 130/51 92 L 10/29/22 15:00 63 14 92 L Intake and Output 10/29/22 10/30/22 10/30/22 22:59 06:59 14:59 Intake Total 409.107 272.428 166.609 Balance 409.107 272.428 166.609 Intake: IV 100 160 Lactated Ringers 1,000 ml 100 160 @ 20 mls/hr IV .Q24H [facility] Rx#:[id number] Intake, IV Titration 349.107 112.428 6.609 Amount Phenylephrine 40 mg In 49.107 112.428 6.609 Sodium Chloride 0.9% 250 ml @ 1 MCG/KG/MIN 18.707 mls/hr IV .[id number] [facility] Rx #:[id number] Sodium Chloride 0.9% 1, 300 000 ml @ 60 mls/hr IV . [id number] [facility] Rx#:[id number] Oral 60 60 Other: Voiding Method Toilet Bedside Commode # Voids 0 0 ABP, PAP, CO, CI - Last 8 Hours Arterial Blood Pressure 130/68 Arterial Blood Pressure 140/61 Arterial Blood Pressure 132/71 Arterial Blood Pressure 134/69 Arterial Blood Pressure 142/55 Arterial Blood Pressure 97/49 Arterial Blood Pressure 105/36 Arterial Blood Pressure 135/44 Arterial Blood Pressure 103/33 Arterial Blood Pressure 122/36 Arterial Blood Pressure 144/56 Arterial Blood Pressure 104/34 Arterial Blood Pressure 95/30 Arterial Blood Pressure 109/34 Arterial Blood Pressure 115/35 Arterial Blood Pressure 121/45 Arterial Blood Pressure 131/50 Arterial Blood Pressure 112/33 Results CBC & Chem 7: 10/30/22 04:35 01/10/23 04:35 Labs: Abnormal Lab Results - Last 24 Hours (Table) 10/30/22 10/30/22 Range/Units 04:35 04:35 RBC 3.68 L (3.80-5.40) m/uL Hgb 11.3 L D (11.4-16.0) gm/dL Hct 33.8 L (34.0-46.0) % Chloride 113 H (98-107) mmol/L Calcium 8.0 L (8.4-10.2) mg/dL
--- NOTE | 2022-10-30 14:39 | P.DS ---
Providers Date of admission: 10/29/22 05:47 Expected date of discharge: 10/30/22 Attending physician: Prabhu Joiner MD Consults: 10/30/22 13:40 Consult Physician Routine Consulting Provider: Marlin Parnell Consult Reason/Comments: medical management Do you want consulting provider notified?: Yes Primary care physician: Vidal [facility] Course: 87-year-old female with a history of carotid stenosis noted greater than 90% and CTA and carotid Doppler who presented for T Chris and stenting. Patient is postop day #1 for left trans-carotid artery revascularization with stent. She was admitted to the ICU yesterday following her procedure as patient was having some hypotension. She was started on a Howard drip which was discontinued this morning. Patient has been off Howard-synephrine since this morning. She's been up to the chair. Her blood pressures have been stable. She is having some mild nausea no vomiting. See previous progress note for further exam details. Plan is for discharge home this evening. Will hold home blood pressure medications for now. Patient to follow-up with her PCP Dr. Beaulieu tomorrow. The impression and plan of care has been dictated as directed. Dr. Elizabeth I performed a history and examination of this patient, discussed the same with the dictator. I agree with the dictator's note ,documented as a scribe. Any additional findings or plans will be noted. Procedures: Preoperative diagnosis: Asymptomatic left internal carotid artery stenosis greater than 90% Postoperative diagnosis: Same Procedure: Left Transcarotid artery revascularization with stenting Surgeon: Yony Elizabeth DO Patient Condition at Discharge: Stable Plan - Discharge Summary Discharge Rx Participant: Yes New Discharge Prescriptions: New Aspirin 81 mg PO DAILY tab Atorvastatin [Lipitor] 40 mg PO HS #30 tab Continue ALPRAZolam [Xanax] 0.25 mg PO TID Clopidogrel [Plavix] 75 mg PO DAILY Sertraline HCl [Zoloft] 50 mg PO DAILY Discontinued Losartan Potassium [Cozaar] 50 mg PO BID Isosorbide Mononitrate ER [Imdur] 30 mg PO DAILY cloNIDine HCL [Catapres] 0.1 mg PO TID Metoprolol Tartrate [Lopressor] 50 mg PO BID Discharge Medication List ALPRAZolam [Xanax] 0.25 mg PO TID 10/22/20 [History] Clopidogrel [Plavix] 75 mg PO DAILY 10/25/22 [History] Sertraline HCl [Zoloft] 50 mg PO DAILY 10/25/22 [History] Aspirin 81 mg PO DAILY tab 10/30/22 [Rx] Atorvastatin [Lipitor] 40 mg PO HS #30 tab 10/30/22 [Rx] Follow up Appointment(s)/Referral(s): Vidal Beaulieu MD [Primary Care Provider] - 10/31/22 4:45 pm Yony Elizabeth DO [STAFF PHYSICIAN] - 1 Week (follow up 1-2 weeks ) Patient Instructions/Handouts: Carotid Artery Stent Placement (DC) Activity/Diet/Wound Care/Special Instructions: May shower using soap and water. No heavy lifting, strenuous activity until follow-up with surgeon. Watch incision site for redness, swelling, drainage, and report fever greater than 100.4 Continue aspirin, Plavix, and Lipitor Blood pressure medications until seen by family physician. You have a scheduled appointment for 10/31/2022. Follow-up with Dr. Elizabeth 1-2 weeks. Discharge Disposition: HOME WITH HOME HEALTH SERVICES
[2022-10-30 15:36] VITALS: BP 144/60; PULSE 69; RESP 25
[2022-10-30] MEDS ORDERED: cloNIDine HCL 0.1 MG TAB PO SCH (16:00)
[2022-10-30] MEDS ORDERED: LOSARTAN 50 MG TAB PO SCH (21:00)
[2022-10-30] MEDS ORDERED: METOPROLOL TARTRATE 50 MG TAB PO SCH (21:00)
[2022-10-31] MEDS ORDERED: ISOSORBIDE MONONITRATE ER 30 MG TAB.ER.24H PO SCH (09:00)
[2022-10-31] MEDS ORDERED: SERTRALINE 50 MG TAB PO SCH (09:00)
== END 2022-10-30 16:24 | disposition home health service (06) | DRG 36 ==
LOC: 2ORMAIN 05:47 → 2SICU 11:26
PROVIDERS: ADMIT Student in an Organized Health Care Education/Training Program; ATTEND Student in an Organized Health Care Education/Training Program
PROC: 037L34Z Dilation of Left Internal Carotid Artery with Drug-eluting Intraluminal Device, Percutaneous Approach (ICD-10-PCS; principal; 2022-10-29 07:30)
PROC: 3E033XZ Introduction of Vasopressor into Peripheral Vein, Percutaneous Approach (ICD-10-PCS; 2022-10-30)
DX: I65.22 Occlusion and stenosis of left carotid artery (principal); I95.89 Other hypotension; E78.5 Hyperlipidemia, unspecified; I10 Essential (primary) hypertension; F41.9 Anxiety disorder, unspecified; Z79.899 Other long term (current) drug therapy; Z79.02 Long term (current) use of antithrombotics/antiplatelets; Z88.6 Allergy status to analgesic agent; Z88.5 Allergy status to narcotic agent; Z91.048 Other nonmedicinal substance allergy status; Z79.82 Long term (current) use of aspirin
CPT/HCPCS: 37215; 80048; 85025; 86850; 86900; 86901

== ENCOUNTER 2024-02-17 15:35 | Inpatient (IN) | payer MEDICARE ==
[2024-02-17 16:43] LABS: Basophils % (A) 0 %; Eosinophils # (A) 0.1 k/uL (0-0.7); Eosinophils % (A) 1 %; HCT 33.7 % (34.0-46.0); Lymphocytes # (A) 0.6 k/uL (1.0-4.8); Lymphocytes % (A) 3 %; MCH 29.9 pg (25.0-35.0); MCHC 32.6 g/dL (31.0-37.0); MCV 91.5 fL (80.0-100.0); Mean Platelet Volume 7.8; Monocytes # (A) 0.5 k/uL (0-1.0); Monocytes % (A) 3 %; Neutrophils # (A) 16.9 k/uL (1.3-7.7); Neutrophils % (A) 93 %; Platelet Count 115 k/uL (150-450); RBC 3.68 m/uL (3.80-5.40); RDW 13.6 % (11.5-15.5); WBC 18.1 k/uL (3.8-10.6)
--- NOTE | 2024-02-17 16:46 | ED ---
General Adult HPI - General Chief complaint: Extremity Injury, Lower Stated complaint: Fall-L arm injury Time Seen by Provider: 02/17/24 16:14 Source: patient, family, EMS, RN notes reviewed, old records reviewed Mode of arrival: EMS Limitations: physical limitation - History of Present Illness Initial comments: 89-year-old female presents with left thigh. Patient states she was twisting and felt a pop causing her to fall. Patient denies any trauma from the fall, no head or neck trauma. Pain is isolated to the left proximal thigh. No knee injury. - Related Data Home Medications Medication Instructions Recorded Confirmed Clopidogrel [Plavix] 75 mg PO DAILY 10/25/22 02/17/24 Sertraline HCl [Zoloft] 50 mg PO DAILY 10/25/22 02/17/24 ALPRAZolam [Xanax] 0.25 mg PO TID PRN 02/17/24 02/17/24 Ascorbic Acid [Vitamin C] 500 mg PO DAILY 02/17/24 02/17/24 Calcium Carb/Mag Ox/Zinc Sulf 1 tab PO BID 02/17/24 02/17/24 [Vcd-Tue-Xfib 334-134-5 mg Tab] Cyanocobalamin [Vitamin B-12] 1,000 mcg PO DAILY 02/17/24 02/17/24 Ezetimibe [Zetia] 10 mg PO DAILY 02/17/24 02/17/24 Hair Volume Supplement 1 tab PO DAILY 02/17/24 02/17/24 Lactose-Reduced Food [Ensure Plus] 1 can PO TID 02/17/24 02/17/24 Losartan [Cozaar] 50 mg PO BID 02/17/24 02/17/24 Metoprolol Tartrate [Lopressor] 50 mg PO BID 02/17/24 02/17/24 Multivitamins, Thera [Multivitamin 1 tab PO DAILY 02/17/24 02/17/24 (formulary)] Ubidecarenone [Coenzyme Q10] 200 mg PO BID 02/17/24 02/17/24 Vitamin C/Biotin [Hair, Skin and 1 tab PO DAILY 02/17/24 02/17/24 Nails Chew] methocarbamoL 750 mg PO TID PRN 02/17/24 02/17/24 Allergies Allergy/AdvReac Type Severity Reaction Status Date / Time alcohol Allergy Rash/Hives Verified 02/17/24 16:24 morphine Allergy Rash/Hives Verified 02/17/24 16:24 propoxyphene [From Darvon] Allergy paralyzed Verified 02/17/24 16:24 acetaminophen AdvReac Avoids Verified 02/17/24 16:24 because it is hard on liver Review of Systems ROS Statement: Those systems with pertinent positive or pertinent negative responses have been documented in the HPI. ROS Other: All systems not noted in ROS Statement are negative. Past Medical History Past Medical History: Hyperlipidemia, Hypertension History of Any Multi-Drug Resistant Organisms: None Reported Past Surgical History: No Surgical Hx Reported Additional Past Surgical History / Comment(s): bowel obstruction leading to lysis of adhesions Past Anesthesia/Blood Transfusion Reactions: No Reported Reaction Past Psychological History: Depression Smoking Status: Never smoker Past Alcohol Use History: None Reported Past Drug Use History: None Reported - Past Family History Mother Family Medical History: No Reported History General Exam Limitations: physical limitation General appearance: alert, in no apparent distress Head exam: Present: atraumatic, normocephalic Eye exam: Present: normal appearance, PERRL ENT exam: Present: normal exam Neck exam: Present: normal inspection. Absent: tenderness, meningismus Respiratory exam: Present: normal lung sounds bilaterally. Absent: respiratory distress, wheezes Cardiovascular Exam: Present: regular rate, normal rhythm GI/Abdominal exam: Present: soft. Absent: distended, tenderness Extremities exam: Present: tenderness, other (Left leg, externally rotated, shortened). Absent: full ROM Neurological exam: Present: alert, oriented X3 Psychiatric exam: Present: normal affect, normal mood Skin exam: Present: warm, dry, intact Course Vital Signs 02/17/24 15:57 Temperature 98.7 F Pulse Rate 104 H Respiratory 16 Rate Blood Pressure 157/77 O2 Sat by Pulse 93 L Oximetry - Reevaluation(s) Reevaluation #1: 02/17/24 1640 Patient had received Toradol by paramedics prior to arrival and not requesting further pain medication. Medical Decision Making - Medical Decision Making Was pt. sent in by a medical professional or institution (, PA, PRODUCTION DIRECTOR, urgent care, hospital, or penitentiary...) When possible be specific @ -No Did you speak to anyone other than the patient for history (EMS, parent, family, police, friend...)? What history was obtained from this source @ -No Did you review nursing and triage notes (agree or disagree)? Why? @ -I reviewed and agree with nursing and triage notes Were old charts reviewed (outside hosp., previous admission, EMS record, old EKG, old radiological studies, urgent care reports/EKG's, penitentiary records)? Report findings @ -No old charts were reviewed Differential Musculoskeletal Muscular strain, contusion, ligament sprain, fracture, arthritis, septic arthritis, bursitis, cellulitis, muscle spasm, nerve compression, DVT, arterial occlusion, herpes zoster, electrolyte abnormality, tumor.... This is not meant to be in all inclusive list EKG interpreted by me (3pts min.). @Sinus tachycardia, rate of 107, AR interval 152, QRS duration 73, QTc 395 X-rays interpreted by me (1pt min.). @Chest x-ray negative for acute cardiopulmonary disease, x-ray of the left femur and left hip shows a displaced subtrochanteric fracture proximal femur. CT interpreted by me (1pt min.). @ -None done U/S interpreted by me (1pt. min.). @ -None done What testing was considered but not performed or refused? (CT, X-rays, U/S, labs)? Why? @ -None What meds were considered but not given or refused? Why? @ -None Did you discuss the management of the patient with other professionals (professionals i.e. , PA, PRODUCTION DIRECTOR, lab, RT, psych nurse, social worker clinical, digital strategy specialist, teacher, chief scientific officer, corrections caseworker)? Give summary @ -Discussed with Dr. Landeros who will admit, Dr. Andrade placed on consult for medical management and preoperative clearance. Was smoking cessation discussed for >3mins.? @ -No Was critical care preformed (if so, how long)? @ -No Were there social determinants of health that impacted care today? How? (Homelessness, low income, unemployed, alcoholism, drug addiction, transportation, low edu. Level, literacy, decrease access to med. care, care home, rehab)? @ -No Was there de-escalation of care discussed even if they declined (Discuss DNR or withdrawal of care, Hospice)? DNR status @ -No What co-morbidities impacted this encounter? (DM, HTN, Smoking, COPD, CAD, Cancer, CVA, ARF, Chemo, Hep., AIDS, mental health diagnosis, sleep apnea, morbid obesity)? @ -None Was patient admitted / discharged? Hospital course, mention meds given and route, prescriptions, significant lab abnormalities, going to OR and other pertinent info. @ -[89-year-old female with sudden onset pain to the left hip with subsequent fall. Patient has fracture of the subtrochanteric proximal femur on the left. Laboratory testing will be obtained, chest x-ray is ordered for preoperative clearance. Patient admitted to orthopedics with medicine on consult. Undiagnosed new problem with uncertain prognosis? @ -No Drug Therapy requiring intensive monitoring for toxicity (Heparin, Nitro, Insulin, Cardizem)? @ -No Were any procedures done? @ -No Diagnosis/symptom? @Left proximal femur fracture Acute, or Chronic, or Acute on Chronic? @Acute Uncomplicated (without systemic symptoms) or Complicated (systemic symptoms)? @ -Default Side effects of treatment? @ -No Exacerbation, Progression, or Severe Exacerbation? @ -No Poses a threat to life or bodily function? How? (Chest pain, [place], [place], pneumonia, PE, COPD, DKA, ARF, appy, cholecystitis, CVA, Diverticulitis, Homicidal, Suicidal, threat to staff... and all critical care pts) @Yes, hip fracture in the elderly. - Lab Data Result diagrams: 02/17/24 16:32 02/17/24 16:32 Lab Results 02/17/24 02/17/24 02/17/24 Range/Units 16:32 16:32 16:32 WBC 18.1 H (3.8-10.6) k/uL RBC 3.68 L (3.80-5.40) m/uL Hgb 11.0 L (11.4-16.0) gm/dL Hct 33.7 L (34.0-46.0) % MCV 91.5 (80.0-100.0) fL MCH 29.9 (25.0-35.0) pg MCHC 32.6 (31.0-37.0) g/dL RDW 13.6 (11.5-15.5) % Plt Count 115 L (150-450) k/uL MPV 7.8 Neutrophils % 93 % Lymphocytes % 3 % Monocytes % 3 % Eosinophils % 1 % Basophils % 0 % Neutrophils # 16.9 H (1.3-7.7) k/uL Lymphocytes # 0.6 L (1.0-4.8) k/uL Monocytes # 0.5 (0-1.0) k/uL Eosinophils # 0.1 (0-0.7) k/uL Basophils # 0.0 (0-0.2) k/uL Sodium 139 (137-145) mmol/L Potassium 3.3 L (3.5-5.1) mmol/L Chloride 108 H (98-107) mmol/L Carbon Dioxide 26 (22-30) mmol/L Anion Gap 5 mmol/L BUN 12 (7-17) mg/dL Creatinine 0.59 (0.52-1.04) mg/dL Est GFR (CKD-EPI)AfAm >90 (>60 ml/min/1.73 sqM) Est GFR (CKD-EPI)NonAf 82 (>60 ml/min/1.73 sqM) Glucose 127 H (74-99) mg/dL Calcium 8.5 (8.4-10.2) mg/dL Total Bilirubin 0.3 (0.2-1.3) mg/dL AST 25 (14-36) U/L ALT 16 (4-34) U/L Alkaline Phosphatase 56 (38-126) U/L Total Protein 5.6 L (6.3-8.2) g/dL Albumin 3.2 L (3.5-5.0) g/dL Blood Type A Positive Blood Type Recheck A Pos Bld Type Recheck Status No Antibody Screen NEGATIVE Spec Expiration Date 02/20/20242331 Disposition Clinical Impression: Subtrochanteric fracture of left femur Disposition: ADMITTED IP TO THIS HOSP Condition: Stable Is patient prescribed a controlled substance at d/c from ED?: No Referrals: Vidal Beaulieu MD [Primary Care Provider] - 1-2 days Time of Disposition: 17:39
[2024-02-17 16:56] LABS: ALT 16 U/L (4-34); AST 25 U/L (14-36); African American GFR (CKD) >90 (>60 ml/min/1.73 sqM); Albumin 3.2 g/dL (3.5-5.0); Alkaline Phosphatase 56 U/L (38-126); Anion Gap 5 mmol/L; Blood Urea Nitrogen 12 mg/dL (7-17); Calcium 8.5 mg/dL (8.4-10.2); Carbon Dioxide 26 mmol/L (22-30); Chloride 108 mmol/L (98-107); Glucose 127 mg/dL (74-99); Non-African American GFR(CKD) 82 (>60 ml/min/1.73 sqM); Potassium 3.3 mmol/L (3.5-5.1); Sodium 139 mmol/L (137-145); Total Bilirubin 0.3 mg/dL (0.2-1.3); Total Protein 5.6 g/dL (6.3-8.2)
--- NOTE | 2024-02-17 17:24 | XR ---
EXAMINATION TYPE: XR chest 1V portable DATE OF EXAM: 02/17/2024 5:08 PM CLINICAL INDICATION:Female, 89 years old with history of fall; [facility] COMPARISON: Chest radiographs from 10/23/2020. TECHNIQUE: XR chest 1V portable Frontal view of the chest. FINDINGS: Lungs/Pleura: There is no evidence of pleural effusion, focal consolidation, or pneumothorax. Pulmonary vascularity: Unremarkable. Heart/mediastinum: Cardiomediastinal silhouette is unremarkable. Musculoskeletal: Degenerative changes of the shoulder joints. Scoliosis changes of the spine. IMPRESSION: No acute cardiopulmonary disease/process.
--- NOTE | 2024-02-17 17:27 | XR ---
EXAMINATION TYPE: XR femur LT, XR Hip LT and AP Pelvis DATE OF EXAM: 02/17/2024 5:08 PM CLINICAL INDICATION:Female, 89 years old with history of fall; [facility] COMPARISON: None TECHNIQUE: XR femur LT, XR Hip LT and AP Pelvis examined in Frontal and lateral projections. Frontal and lateral views of the left hip with AP pelvis. FINDINGS/IMPRESSION: 1. Comminuted left femoral subtrochanteric fracture with medial displacement up to 2 cm and mild eula rtening. No additional fractures. 2. 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
[2024-02-17] MEDS ORDERED: NALOXONE 0.4 MG/ML 1 ML VIAL IV PRN (17:33)
[2024-02-17] MEDS: SODIUM CHLORIDE 0.9% 1,000 ML IV SCH (17:59)
[2024-02-17] MEDS: POTASSIUM CHLORIDE ER 20 MEQ TAB.ER PO STA (18:20)
--- NOTE | 2024-02-18 00:57 | P.CONS ---
History of Present Illness - Reason for Consult Consult date: 02/17/24 - History of Present Illness Patient is a 89-year-old female with a PMH of carotid artery stenosis status post stenting and hypertension who presents to the emergency room for left hip pain. Patient reports that she was in her home when she is turned suddenly to answer the phone and felt a snap in her left hip. She immediately fell to the ground and had severe pain at the site. Upon EMS arrival, traction was applied to the left leg and a c-collar was placed. At time of interview, patient reports that she is currently pain-free at rest. Denied experiencing head trauma during her fall. Denied any additional complaints. Reports having excellent exercise tolerance at her baseline and is independent in all her ADLs. Denied exertional chest discomfort or dyspnea. Reports she is able to climb numerous flights of stairs without difficulty. Denied experiencing fever, chills, cough, nausea, vomiting, abdominal pain, diarrhea. Femoral x-ray in the emergency room revealed a comminuted left femoral subtrochanteric fracture with medial displacement and mild shortening. EKG revealed sinus tachycardia with APCs at [address]/T wave changes noted as reviewed by me. Laboratory evaluation was remarkable for leukocytosis of 18.1, hemoglobin 11.0, potassium 3.3, and sodium 139. ED documentation reviewed and case discussed with ED provider. Review of systems: Pertinent positives and negatives as discussed in HPI, a complete review of systems was performed and all other systems are negative. Physical examination: Vital signs reviewed General: non toxic, no distress, appears at stated age, normal weight Derm: no unusual rashes/lesions, warm Head: atraumatic, normocephalic, symmetric Eyes: EOMI, no lid lag, anicteric sclera, pupils equal round reactive to light ENT: Nose and ears atraumatic Neck: No cervical lymphadenopathy, trachea midline, supple Mouth: no lip lesion, mucus membranes moist Cardiovascular: S1S2 reg, no murmur, positive dorsalis pedis pulse bilateral, no edema Lungs: CTA bilateral, no rhonchi, no rales, no accessory muscle use Abdominal: soft, nontender to palpation, no guarding Ext: muscle strength 5 out of 5 in all extremities except left lower extremity due to pain, distal left lower extremity strength intact, no gross muscle atrophy, no contractures, Neuro: CN II-XI grossly intact, no gross focal neuro deficits Psych: Alert, oriented, appropriate affect Assessment: Leukocytosis, likely secondary to acute stressor with no signs of active infection at this time Hypokalemia Chronic conditions: Carotid artery stenosis status post stenting (on Plavix), hy pertension Left femoral fracture Imaging: Femoral x-ray in the emergency room revealed a comminuted left femoral subtrochanteric fracture with medial displacement and mild shortening. EKG revealed sinus tachycardia with APCs at [address]/T wave changes noted as reviewed by me. Data Review: Laboratory evaluation was remarkable for leukocytosis of 18.1, hemoglobin 11.0, potassium 3.3, and sodium 139. Plan: Replace patient's potassium Hold Plavix in anticipation for surgery Resume patient's home losartan Monitor CBC The patient is currently optimized for orthopedic surgical procedure, is medium risk for perioperative complicantsions in light of advanced age with no obvious modifiable risk factors. RCRI Score: 0 (3.9% 30 day risk of CA) Past Medical History Past Medical History: Hyperlipidemia, Hypertension History of Any Multi-Drug Resistant Organisms: None Reported Past Surgical History: No Surgical Hx Reported Additional Past Surgical History / Comment(s): bowel obstruction leading to lysis of adhesions Past Anesthesia/Blood Transfusion Reactions: No Reported Reaction Past Psychological History: Depression Smoking Status: Never smoker Past Alcohol Use History: None Reported Past Drug Use History: None Reported - Past Family History Mother Family Medical History: No Reported History Medications and Allergies Home Medications Medication Instructions Recorded Confirmed Type Clopidogrel [Plavix] 75 mg PO DAILY 10/25/22 02/17/24 History Sertraline HCl [Zoloft] 50 mg PO DAILY 10/25/22 02/17/24 History ALPRAZolam [Xanax] 0.25 mg PO TID PRN 02/17/24 02/17/24 History Ascorbic Acid [Vitamin C] 500 mg PO DAILY 02/17/24 02/17/24 History Calcium Carb/Mag Ox/Zinc Sulf 1 tab PO BID 02/17/24 02/17/24 History [[place] 334-134-5 mg Tab] Cyanocobalamin [Vitamin B-12] 1,000 mcg PO DAILY 02/17/24 02/17/24 History Ezetimibe [Zetia] 10 mg PO DAILY 02/17/24 02/17/24 History Hair Volume Supplement 1 tab PO DAILY 02/17/24 02/17/24 History Lactose-Reduced Food [Ensure Plus] 1 can PO TID 02/17/24 02/17/24 History Losartan [Cozaar] 50 mg PO BID 02/17/24 02/17/24 History Metoprolol Tartrate [Lopressor] 50 mg PO BID 02/17/24 02/17/24 History Multivitamins, Thera [Multivitamin 1 tab PO DAILY 02/17/24 02/17/24 History (formulary)] Ubidecarenone [Coenzyme Q10] 200 mg PO BID 02/17/24 02/17/24 History Vitamin C/Biotin [Hair, Skin and 1 tab PO DAILY 02/17/24 02/17/24 History Nails Chew] methocarbamoL 750 mg PO TID PRN 02/17/24 02/17/24 History Allergies Allergy/AdvReac Type Severity Reaction Status Date / Time alcohol Allergy Rash/Hives Verified 02/17/24 16:24 morphine Allergy Rash/Hives Verified 02/17/24 16:24 propoxyphene [From Darvon] Allergy paralyzed Verified 02/17/24 16:24 acetaminophen AdvReac Avoids Verified 02/17/24 16:24 because it is hard on liver Physical Exam Vitals: Vital Signs Temp Pulse Pulse Resp BP BP Pulse Ox 02/17/24 22:40 98.0 F 98 16 109/66 94 L 02/17/24 21:58 107 H 16 125/61 94 L 02/17/24 15:57 98.7 F 104 H 16 157/77 93 L Intake and Output 02/17/24 02/17/24 02/18/24 14:59 22:59 06:59 Other: Weight 47.174 kg Results CBC & Chem 7: 02/17/24 16:32 02/17/24 16:32 Labs: Abnormal Lab Results - Last 24 Hours (Table) 02/17/24 02/17/24 Range/Units 16:32 16:32 WBC 18.1 H (3.8-10.6) k/uL RBC 3.68 L (3.80-5.40) m/uL Hgb 11.0 L (11.4-16.0) gm/dL Hct 33.7 L (34.0-46.0) % Plt Count 115 L (150-450) k/uL Neutrophils # 16.9 H (1.3-7.7) k/uL Lymphocytes # 0.6 L (1.0-4.8) k/uL Potassium 3.3 L (3.5-5.1) mmol/L Chloride 108 H (98-107) mmol/L Glucose 127 H (74-99) mg/dL Total Protein 5.6 L (6.3-8.2) g/dL Albumin 3.2 L (3.5-5.0) g/dL
[2024-02-18] MEDS ORDERED: ALPRAZolam 0.25 MG TAB PO PRN (02:08)
[2024-02-18] MEDS: HYDROmorphone 0.5 MG/0.5 ML SYRINGE IVP PRN (03:04)
[2024-02-18 04:03] LABS: Partial Thromboplastin Time 22.3 sec (22.0-30.0); Prothrombin Time 10.8 sec (10.0-12.5)
--- NOTE | 2024-02-18 08:33 | P.PN ---
Subjective Progress Note Date: 02/18/24 Patient is an 89-year-old female with known carotid artery stenosis status post stenting, hypertension, and dyslipidemia who presented to the hospital with complaints of left hip pain after a fall. In the emergency department she underwent extensive evaluation. Labs remarkable for white blood cell count 18.1, hemoglobin 11, platelets 115, potassium 3.3. She was ultimately found to have a left subtrochanteric hip fracture. She was admitted to orthopedic surgery and we were asked to consult. Patient seen and examined at bedside. Currently pain is well-controlled. Denies any chest pain, shortness of breath, nausea, vomiting. Her has needed complete assistance over the last several months. She gets into the bathroom with a gait belt and she has been helping him with all ADLs. Vital signs reviewed General: Nontoxic, no distress, appears at stated age Cardiovascular: S1S2 reg, Grade 4 systolic ejection murmur Lungs: CTA bilateral, no rhonchi, no rales, no accessory muscle use Abdominal: Soft, nontender to palpation, no guarding Ext: No gross muscle atrophy, no edema b/l lower extremities, no contractures Neuro: CN II-XI grossly intact, no focal neuro deficits Psych: Alert, oriented, appropriate affect Assessment/Plan: Patient is an 89 yo Female with Left subtrochanteric hip fracture NSQIP: Left femoral IM nailing Risk of serious complication for patient 7.8% (average risk 11.5%) Risk of cardiac complications per patient 1.3% (average risk 2.3%) Risk of for patient 1.1% (average risk 3.6%) [place] Activity index: 6.61 METS Echo requested from cardiology associates. Patient follows with Dr. Gordon. I spoke with Dr. Perdomo from anesthesia who consultation for clearance. I spoke with Nena greene and Dr. Vanegas they will be by to see the the patient today, they are aware of 4 pm case. Thye are repeat echo Hypertension Dyslipidemia Carotid artery disease Moderate aortic stenosis -Plavix is on hold -For possible surgery, metoprolol 50 mg twice daily. Patient should have this medication on the day of surgery to decrease overall risks -Cozaar 50 mg twice daily -Zetia 10 mg daily -Follow blood pressures Hypokalemia - was replaced yesterday - await repeat BMP Imaging: EKG is reviewed by myself demonstrates sinus tachycardia at a rate of 107, normal axis, normal intervals, and no significant ST-T wave changes Data Review: Await BMP Thank you for allowing us to participate in the care of this pleasant patient. Do not hesitate to contact us with questions. Someone can be reached from the [facility] hospitalist group all hours of the day at [phone] or via perfect serve. This dictation was prepared using io[employer] voice recognition software. Though every attempt is made to correct errors during dictation some may still exist. Objective - Vital Signs Vital signs: Vital Signs Temp 98.2 F 02/18/24 02:00 Pulse 97 02/18/24 02:00 Resp 18 02/18/24 02:00 BP 151/81 02/18/24 02:00 Pulse Ox 95 02/18/24 02:00 FiO2 Intake & Output 02/17/24 02/18/24 02/18/24 18:59 06:59 18:59 Intake Total 375 Balance 375 Weight 47.174 kg 47.174 kg Intake: Intake, IV Titration 375 Amount Sodium Chloride 0.9% 1, 375 000 ml @ 75 mls/hr IV . [id number] COUNT INCLUDES THE [facility] Rx#:[id number] Other: # Voids 1 - Labs CBC & Chem 7: 02/17/24 16:32 02/17/24 16:32 Labs: Abnormal Lab Results - Last 24 Hours (Table) 02/17/24 02/17/24 Range/Units 16:32 16:32 WBC 18.1 H (3.8-10.6) k/uL RBC 3.68 L (3.80-5.40) m/uL Hgb 11.0 L (11.4-16.0) gm/dL Hct 33.7 L (34.0-46.0) % Plt Count 115 L (150-450) k/uL Neutrophils # 16.9 H (1.3-7.7) k/uL Lymphocytes # 0.6 L (1.0-4.8) k/uL Potassium 3.3 L (3.5-5.1) mmol/L Chloride 108 H (98-107) mmol/L Glucose 127 H (74-99) mg/dL Total Protein 5.6 L (6.3-8.2) g/dL Albumin 3.2 L (3.5-5.0) g/dL
[2024-02-18] MEDS: SERTRALINE 50 MG TAB PO SCH (08:41)
[2024-02-18] MEDS: LOSARTAN 50 MG TAB PO SCH (08:41)
[2024-02-18] MEDS: EZETIMIBE 10 MG TAB PO SCH (08:41)
--- NOTE | 2024-02-18 13:50 | P.CRDCN ---
History of Present Illness Consult date: 02/18/24 History of present illness: History of present illness: This is an 89-year-old female patient of Dr. Gordon with past medical history of hypertension, hyperlipidemia, carotid artery stenosis status post carotid intervention by Dr. Elizabeth in October 2022 with stent, moderate aortic stenosis. We have been asked to evaluate the patient for preop clearance. Patient states that she had a fall at home when she turned to answer the phone. Patient was found to have a left femoral fracture and is scheduled this afternoon for a left femoral IM nail. Patient denies having any chest pain or shortness of breath. She denies any loss of consciousness. She is currently on Plavix for carotid stent that was done in October,. Potassium was replaced. EKG sinus rhythm with PACs Chest x-ray: No acute process WBC 18.1, hemoglobin 11, platelet count 115. INR 1. Sodium 139, potassium 3.3, BUN 12 and creatinine 0.59. Blood sugar 127. Home cardiac medications: Plavix 75 mg daily, Zetia 10 mg daily, losartan 50 mg twice daily, Lopressor 50 mg twice daily. Echocardiogram performed in the office on 02/15/2023 revealed EF of 55 to 60%. Mild left ventricular hypertrophy. Trace aortic regurgitation and moderate aortic stenosis. Moderate mitral regurgitation. Mild mitral stenosis. Mild to moderate tricuspid regurgitation. Pulmonary artery systolic pressure of 38 mmHg. Mild pulmonic regurgitation. Lexiscan Cardiolite stress test performed 12/05/2021 in the office revealed a negative Lexiscan stress test. Probably normal perfusion study with mild fixed defect in the anterior apical wall, seems to be secondary to soft tissue attenuation though previous myocardial infarction cannot be completely excluded. Gated images showed fair systolic function with questionable hypokinesia of the inferior basal segment. Review Of Systems: At the time of my exam: CONSTITUTIONAL: Denies fever or chills. HEENT: Denies blurred vision, vision changes, or eye pain. Denies hemoptysis CARDIOVASCULAR: Denies chest pain. Denies orthopnea. Denies PND. Denies palpitations RESPIRATORY: Denies shortness of breath. GASTROINTESTINAL: Denies abdominal pain. Denies nausea or vomiting. HEMATOLOGIC: Denies bleeding disorders. GENITOURINARY: Denies any blood in urine. SKIN: Denies pruitis. Denies rash. Physical examination: Gen: This is an 89-year-old female in no acute distress. VS: reviewed, blood pressure 131/72, heart rate 94, pulse ox 95% on room air. HEENT: Head is atraumatic, normocephalic. Pupils equal, round. Sclerae is anicteric. NECK: Supple. No JVD. LUNGS: Clear to auscultation. No wheezes or rhonchi. No intercostal retractions. HEART: Regular rate and rhythm. 3/6 systolic murmur. ABDOMEN: Soft No tenderness. EXTREMITIES: No pedal edema. No calf tenderness. NEUROLOGICAL: Patient is awake, alert and oriented x3. Assessment: Left subtrochanteric hip fracture scheduled for IM nail 02/17 Moderate aortic stenosis Hypertension Hyperlipidemia Carotid artery stenosis status post stent in October 2022 Plan: Resume patient's home cardiac medications Hold Plavix Obtain 2-D echocardiogram and Doppler study to assess cardiac structure and function Further recommendations to follow based upon clinical course Thank you kindly for this consultation. Nurse practitioner note has been reviewed, I agree with documented findings and plan of care. Patient was seen and examined. Past Medical History Past Medical History: Hyperlipidemia, Hypertension History of Any Multi-Drug Resistant Organisms: None Reported Past Surgical History: No Surgical Hx Reported Additional Past Surgical History / Comment(s): bowel obstruction leading to lysis of adhesions Past Anesthesia/Blood Transfusion Reactions: No Reported Reaction Past Psychological History: Depression Smoking Status: Never smoker Past Alcohol Use History: None Reported Past Drug Use History: None Reported - Past Family History Mother Family Medical History: No Reported History Medications and Allergies Home Medications Medication Instructions Recorded Confirmed Type Clopidogrel [Plavix] 75 mg PO DAILY 10/25/22 02/17/24 History Sertraline HCl [Zoloft] 50 mg PO DAILY 10/25/22 02/17/24 History ALPRAZolam [Xanax] 0.25 mg PO TID PRN 02/17/24 02/17/24 History Ascorbic Acid [Vitamin C] 500 mg PO DAILY 02/17/24 02/17/24 History Calcium Carb/Mag Ox/Zinc Sulf 1 tab PO BID 02/17/24 02/17/24 History [Cck-Hrs-Pqxa 334-134-5 mg Tab] Cyanocobalamin [Vitamin B-12] 1,000 mcg PO DAILY 02/17/24 02/17/24 History Ezetimibe [Zetia] 10 mg PO DAILY 02/17/24 02/17/24 History Hair Volume Supplement 1 tab PO DAILY 02/17/24 02/17/24 History Lactose-Reduced Food [Ensure Plus] 1 can PO TID 02/17/24 02/17/24 History Losartan [Cozaar] 50 mg PO BID 02/17/24 02/17/24 History Metoprolol Tartrate [Lopressor] 50 mg PO BID 02/17/24 02/17/24 History Multivitamins, Thera [Multivitamin 1 tab PO DAILY 02/17/24 02/17/24 History (formulary)] Ubidecarenone [Coenzyme Q10] 200 mg PO BID 02/17/24 02/17/24 History Vitamin C/Biotin [Hair, Skin and 1 tab PO DAILY 02/17/24 02/17/24 History Nails Chew] methocarbamoL 750 mg PO TID PRN 02/17/24 02/17/24 History Allergies Allergy/AdvReac Type Severity Reaction Status Date / Time alcohol Allergy Rash/Hives Verified 02/17/24 16:24 morphine Allergy Rash/Hives Verified 02/17/24 16:24 propoxyphene [From Darvon] Allergy paralyzed Verified 02/17/24 16:24 acetaminophen AdvReac Avoids Verified 02/17/24 16:24 because it is hard on liver Physical Exam Vitals: Vital Signs Temp Pulse Pulse Resp BP BP BP 02/18/24 07:00 98.0 F 94 131/72 02/18/24 02:00 98.2 F 97 18 151/81 02/17/24 22:40 98.0 F 98 16 109/66 02/17/24 21:58 107 H 16 125/61 02/17/24 15:57 98.7 F 104 H 16 157/77 Pulse Ox 02/18/24 07:00 95 02/18/24 02:00 95 02/17/24 22:40 94 L 02/17/24 21:58 94 L 02/17/24 15:57 93 L Intake and Output 02/17/24 02/18/24 02/18/24 22:59 06:59 14:59 Intake Total 375 Balance 375 Intake: Intake, IV Titration 375 Amount Sodium Chloride 0.9% 1, 375 000 ml @ 75 mls/hr IV . [id number] [facility] Rx#:[id number] Other: # Voids 1 Weight 47.174 kg Results 02/17/24 16:32 02/17/24 16:32 Cardiac Enzymes 02/17/24 Range/Units 16:32 AST 25 (14-36) U/L Coagulation 02/18/24 Range/Units 02:39 PT 10.8 (10.0-12.5) sec APTT 22.3 (22.0-30.0) sec CBC 02/17/24 Range/Units 16:32 WBC 18.1 H (3.8-10.6) k/uL RBC 3.68 L (3.80-5.40) m/uL Hgb 11.0 L (11.4-16.0) gm/dL Hct 33.7 L (34.0-46.0) % Plt Count 115 L (150-450) k/uL Comprehensive Metabolic Panel 02/17/24 Range/Units 16:32 Sodium 139 (137-145) mmol/L Potassium 3.3 L (3.5-5.1) mmol/L Chloride 108 H (98-107) mmol/L Carbon Dioxide 26 (22-30) mmol/L BUN 12 (7-17) mg/dL Creatinine 0.59 (0.52-1.04) mg/dL Glucose 127 H (74-99) mg/dL Calcium 8.5 (8.4-10.2) mg/dL AST 25 (14-36) U/L ALT 16 (4-34) U/L Alkaline Phosphatase 56 (38-126) U/L Total Protein 5.6 L (6.3-8.2) g/dL Albumin 3.2 L (3.5-5.0) g/dL Current Medications Generic Name Dose Route Start Last Admin Trade Name Freq PRN Reason Stop Dose Admin Alprazolam 0.25 mg 02/18/24 02:08 Alprazolam 0.25 Mg Tab PO TID PRN Anxiety Ezetimibe 10 mg 02/18/24 09:00 02/18/24 08:41 Ezetimibe 10 Mg Tab PO 10 mg DAILY [facility] Administration Hydromorphone HCl 0.5 mg 02/17/24 17:33 02/18/24 03:04 Hydromorphone 0.5 Mg/0.5 Ml Syringe IVP 0.5 mg Q3HR PRN Administration Moderate Pain (Scale 4 to 6) Sodium Chloride 1,000 mls @ 75 mls/hr 02/17/24 17:45 02/18/24 08:41 Saline 0.9% IV 75 mls/hr .[id number] [facility] Administration Losartan Potassium 50 mg 02/18/24 09:00 02/18/24 08:41 Losartan 50 Mg Tab PO 50 mg BID [facility] Administration Naloxone HCl 0.2 mg 02/17/24 17:33 Naloxone 0.4 Mg/Ml 1 Ml Vial IV Q2M PRN Opioid Reversal Sertraline HCl 50 mg 02/18/24 09:00 02/18/24 08:41 Sertraline 50 Mg Tab PO 50 mg DAILY [facility] Administration Intake and Output 02/17/24 02/18/24 02/18/24 22:59 06:59 14:59 Intake Total 375 Balance 375 Intake: Intake, IV Titration 375 Amount Sodium Chloride 0.9% 1, 375 000 ml @ 75 mls/hr IV . [id number] [facility] Rx#:[id number] Other: # Voids 1 Weight 47.174 kg 02/17/24 16:32 02/17/24 16:32
[2024-02-18 15:18] LABS: HCT 27.3 % (34.0-46.0); MCH 30.3 pg (25.0-35.0); MCHC 32.4 g/dL (31.0-37.0); MCV 93.5 fL (80.0-100.0); Mean Platelet Volume 8.7; RBC 2.92 m/uL (3.80-5.40); RDW 14.1 % (11.5-15.5); WBC 10.4 k/uL (3.8-10.6)
[2024-02-18 15:27] LABS: HGB 8.9 gm/dL (11.4-16.0); Platelet Count 196 k/uL (150-450)
[2024-02-18 15:30] LABS: African American GFR (CKD) >90 (>60 ml/min/1.73 sqM); Anion Gap 5 mmol/L; Blood Urea Nitrogen 13 mg/dL (7-17); Calcium 8.1 mg/dL (8.4-10.2); Carbon Dioxide 25 mmol/L (22-30); Chloride 109 mmol/L (98-107); Glucose 117 mg/dL (74-99); Non-African American GFR(CKD) 79 (>60 ml/min/1.73 sqM); Potassium 4.1 mmol/L (3.5-5.1); Sodium 139 mmol/L (137-145)
[2024-02-18] MEDS: SODIUM CHLORIDE 0.9% 1,000 ML IV ONE ×2 (15:55→20:46)
[2024-02-18] MEDS ORDERED: ONDANSETRON 4 MG/2 ML VIAL ONE (16:16)
[2024-02-18] MEDS ORDERED: PHENYLEPHRINE-0.9% NACL SYG 1,000 MCG/10 ML SYRINGE ONE (16:42)
[2024-02-18] MEDS ORDERED: LIDOCAINE 1% INJ 10MG/ML (20 ML MDV) ONE (16:42)
[2024-02-18] MEDS ORDERED: fentaNYL (PF) 50 MCG/ML 2 ML AMP ONE (16:42)
[2024-02-18] MEDS ORDERED: ROCURONIUM 10 MG/ML (5 ML VIAL) IV ONE (16:42)
[2024-02-18] MEDS ORDERED: ceFAZolin 1 GM/50 ML BAG (PMX) ONE (16:42)
[2024-02-18] MEDS ORDERED: SUCCINYLCHOLINE CHLORIDE 200 MG/10 ML VIAL IV ONE (16:42)
[2024-02-18] MEDS ORDERED: PROPOFOL 10 MG/ML 20 ML VIAL IV ONE (16:42)
[2024-02-18] MEDS ORDERED: NEOSTIGMINE 1 MG/ML 10 ML VIAL ONE (16:42)
[2024-02-18] MEDS ORDERED: GLYCOPYRROLATE 0.2 MG/ML 2 ML VIAL ONE (16:42)
[2024-02-18] MEDS: DEXAMETHASONE SOD PHOSPHATE 4 MG/ML 1 ML VIAL IVP ONE (16:43)
[2024-02-18] MEDS: ONDANSETRON 4 MG/2 ML VIAL IVP ONE (16:43)
--- NOTE | 2024-02-18 16:46 | P.HPOR ---
History of Present Illness H&P Date: 02/18/24 The patient is a very pleasant relatively healthy 89-year-old female who was twisting to answer the telephone yesterday when she felt immediate pain in her left hip and fell to the ground. She was unable to walk and was brought to the hospital by an ambulance. In the ER she was found to have a subtrochanteric femur fracture. She was admitted under my care and was seen by internal medicine. At the time of my evaluation she is complaining of isolated pain in her left hip. She denies prior hip pain or history of cancer. She is Bharat caring for her who has metastatic melanoma and they're working towards hospice for him. Past Medical History Past Medical History: Hyperlipidemia, Hypertension History of Any Multi-Drug Resistant Organisms: None Reported Past Surgical History: No Surgical Hx Reported Additional Past Surgical History / Comment(s): bowel obstruction leading to lysis of adhesions Past Anesthesia/Blood Transfusion Reactions: No Reported Reaction Past Psychological History: Depression Smoking Status: Never smoker Past Alcohol Use History: None Reported Past Drug Use History: None Reported - Past Family History Mother Family Medical History: No Reported History Medications and Allergies Home Medications Medication Instructions Recorded Confirmed Type Clopidogrel [Plavix] 75 mg PO DAILY 10/25/22 02/17/24 History Sertraline HCl [Zoloft] 50 mg PO DAILY 10/25/22 02/17/24 History ALPRAZolam [Xanax] 0.25 mg PO TID PRN 02/17/24 02/17/24 History Ascorbic Acid [Vitamin C] 500 mg PO DAILY 02/17/24 02/17/24 History Calcium Carb/Mag Ox/Zinc Sulf 1 tab PO BID 02/17/24 02/17/24 History [Kps-Kgv-Llmy 334-134-5 mg Tab] Cyanocobalamin [Vitamin B-12] 1,000 mcg PO DAILY 02/17/24 02/17/24 History Ezetimibe [Zetia] 10 mg PO DAILY 02/17/24 02/17/24 History Hair Volume Supplement 1 tab PO DAILY 02/17/24 02/17/24 History Lactose-Reduced Food [Ensure Plus] 1 can PO TID 02/17/24 02/17/24 History Losartan [Cozaar] 50 mg PO BID 02/17/24 02/17/24 History Metoprolol Tartrate [Lopressor] 50 mg PO BID 02/17/24 02/17/24 History Multivitamins, Thera [Multivitamin 1 tab PO DAILY 02/17/24 02/17/24 History (formulary)] Ubidecarenone [Coenzyme Q10] 200 mg PO BID 02/17/24 02/17/24 History Vitamin C/Biotin [Hair, Skin and 1 tab PO DAILY 02/17/24 02/17/24 History Nails Chew] methocarbamoL 750 mg PO TID PRN 02/17/24 02/17/24 History Allergies Allergy/AdvReac Type Severity Reaction Status Date / Time alcohol Allergy Rash/Hives Verified 02/18/24 15:57 morphine Allergy Rash/Hives Verified 02/18/24 15:57 propoxyphene [From Darvon] Allergy paralyzed Verified 02/18/24 15:57 acetaminophen AdvReac Avoids Verified 02/18/24 15:57 because it is hard on liver Physical Examination The patient is resting comfortably in bed. She is alert and able to answer questions. Her head is normocephalic and atraumatic. She demonstrates nonlabored breathing with symmetric chest expansion. Her abdomen is nonobese. Her bilateral upper extremities and right lower extremity are without deformity. On inspection of the left leg is shortened and externally rotated. There is swelling throughout the thigh but no open wounds or fracture blisters. Her knee, leg, and foot are nontender. She can actively plantarflex and dorsiflex her ankle and her toes. Results X-rays of the pelvis and femur show a displaced subtrochanteric femur fracture and diffuse osteopenia. - Labs Labs: Abnormal Lab Results - Last 24 Hours (Table) 02/17/24 02/17/24 02/18/24 Range/Units 16:32 16:32 14:28 WBC 18.1 H (3.8-10.6) k/uL RBC 3.68 L (3.80-5.40) m/uL Hgb 11.0 L (11.4-16.0) gm/dL Hct 33.7 L (34.0-46.0) % Plt Count 115 L (150-450) k/uL Neutrophils # 16.9 H (1.3-7.7) k/uL Lymphocytes # 0.6 L (1.0-4.8) k/uL Potassium 3.3 L (3.5-5.1) mmol/L Chloride 108 H 109 H (98-107) mmol/L Glucose 127 H 117 H (74-99) mg/dL Calcium 8.1 L (8.4-10.2) mg/dL Total Protein 5.6 L (6.3-8.2) g/dL Albumin 3.2 L (3.5-5.0) g/dL 02/18/24 Range/Units 14:28 WBC (3.8-10.6) k/uL RBC 2.92 L (3.80-5.40) m/uL Hgb 8.9 L D (11.4-16.0) gm/dL Hct 27.3 L (34.0-46.0) % Plt Count (150-450) k/uL Neutrophils # (1.3-7.7) k/uL Lymphocytes # (1.0-4.8) k/uL Potassium (3.5-5.1) mmol/L Chloride (98-107) mmol/L Glucose (74-99) mg/dL Calcium (8.4-10.2) mg/dL Total Protein (6.3-8.2) g/dL Albumin (3.5-5.0) g/dL H & H 02/17/24 02/18/24 Range/Units 16:32 14:28 Hgb 11.0 L 8.9 L D (11.4-16.0) gm/dL Hct 33.7 L 27.3 L (34.0-46.0) % Coagulation 02/18/24 Range/Units 02:39 INR 1.0 (<1.2) Result Diagrams: 02/18/24 14:28 02/18/24 14:28 Assessment and Plan Assessment: Left subtrochanteric femur fracture Osteopenia Plan: I had a long discussion with the patient and her daughter at bedside. My recommendation was to fix her left femur fracture with a long cephalo-medullary nail. We discussed the potential risks and complications of surgery at length. The patient and her daughter understand her elevated risk of having a complication due to her age and poor bone quality. We also discussed recovery at length. She will likely need discharge to retirement facility or rehab. Toe and nonweightbearing on the left leg until surgery. Time with Patient: Greater than 30
[2024-02-18] MEDS: SODIUM CHLORIDE 0.9% 50 ML with ceFAZolin 2,000 MG IV ONE (17:00)
[2024-02-18] MEDS: LACTATED RINGERS 1,000 ML IV ONE ×2 (17:00→18:25)
[2024-02-18] MEDS ORDERED: NALOXONE 0.4 MG/ML 1 ML VIAL IV PRN (18:59)
[2024-02-18] MEDS ORDERED: ONDANSETRON 4 MG/2 ML VIAL IVP PRN (18:59)
[2024-02-18] MEDS ORDERED: HYDROmorphone 0.5 MG/0.5 ML SYRINGE IVP PRN (18:59)
--- NOTE | 2024-02-18 18:59 | P.OP ---
Date of Procedure: 02/18/24 Preoperative Diagnosis: 1. Comminuted left peritrochanteric femur fracture with subtrochanteric extension Postoperative Diagnosis: Same Procedure(s) Performed: Operative fixation of left proximal femur fracture with long cephalo-medullary nail Anesthesia: ALBERTO Surgeon: Víctor Landeros Estimated Blood Loss (ml): 150 IV fluids (ml): 800 Pathology: none sent Condition: stable Disposition: PACU Indications for Procedure: I met with the patient and their family preoperatively to discuss their injury and treatment options. They have a comminuted peritrochanteric femur fracture with subtrochanteric extension and my recommendation was to stabilize the fracture with a long intramedullary hip screw to facilitate early mobilization. We discussed the potential risks and complications of this surgical procedure including but certainly not limited to risks from anesthesia, superficial infection, deep infection, fracture nonunion, fracture malunion, hardware failure including broken hardware, varus collapse with lag screw cut out of the femoral head, progression of hip arthritis, limb length discrepancy, symptomatic hardware, need for further surgery including hardware removal and conversion to arthroplasty, DVT, PE, acute coronary event, pressure ulcers, urinary tract infection, failure to thrive, an inability to regain preinjury level of function, and possibly . The patient and their family understand these potential complications and also awknowledge that other less common complications are possible. They provided both their verbal and written consent to go forward with operative fixation of their hip fracture with an intramed ullary hip screw. Operative Findings: Comminuted peritrochanteric femur fracture with multiple fracture fragments and exceedingly poor bone quality Description of Procedure: The patient was identified in preoperative holding and the correct operative extremity was marked with my initials. I reviewed the consent form with the patient and their family and all of their questions were answered. The patient was then brought back to the operating room by anesthesia. Anesthesia, preoperative antibiotics, and tranexamic acid were given by the anesthesia team while on the [facility]. Both ankles were padded with webril and boots for the Bucklin table were applied. The patient was then carefully transferred onto the Bucklin table. A perineal post was immediately placed. The contralateral arm was secured on a well-padded arm vleazco. The ipsilateral arm was draped across the chest and secured with a pillow, foam, and paper tape to allow access to the proximal femur. Nonsterile drapes were applied to the operative extremity. The height of the table was elevated and the contralateral extremity was dropped towards the floor to facilitate imaging. A timeout was performed identifying the correct patient, operative extremity, and procedure. Fluoroscopy was brought in to assess the fracture. A provisional reduction was performed using longitudinal traction, adduction, and internal rotation. An AP and lateral view were obtained to assess the reduction. The operative extremity was then prepped and draped in the standard sterile fashion. A straight incision was made at the tip of the greater trochanter and extended proximally for 3 cm. Skin and subcutaneous tissues were incised sharply. The underlying fascia was incised in line with the skin incision. An awl was placed just medial to the tip of the greater trochanter on the AP view and colinear with the canal on the lateral view. A 3.2 mm guide pin was then advanced into the proximal femur up to the level of the fracture. A lateral incision was made at the level of the fracture. Skin incision was made with a scalpel and dissection carried down to the IT band which was incised longitudinally in line with the skin incision. On fluoroscopy the fracture appeared relatively well reduced but the shaft of the femur was displaced medially. On digital palpation the proximal femur felt comminuted with multiple fracture fragments. Due to the patient's poor bone quality and multiple fracture fragments, I did not feel that her fracture Was amenable to reduction with a clamp or cable. A bone hook was applied on the distal shaft to lateralize the femur. The position of the guidepin was verified with fluoroscopy. The guidepin was then advanced past the fracture into the shaft of the femur. An opening reamer and soft tissue cannula were placed over the guidepin and used to open the proximal femur to the level of the lesser trochanter. The 3.2 mm guide pin and opening reamer were removed. A long ball- tipped guidewire was then placed into the proximal femur, across the fracture, and seated distally. The position of the long ball-tipped guidewire was verified both at the hip and knee with orthogonal fluoroscopic images. The length was measured. A long gamma nail was dispensed, hooked up to the targeting arm and I verified that the trochar through the targeting arm lined up with the slots on the nail. The nail was then impacted into the femur until the appropriate depth had been reached. Using the previously made lateral incision over the lateral aspect of the femur the trocar was placed up to the lateral cortex of the femur and a guidepin was placed in the low center position on the AP view and centered in the femoral head on the lateral view. Once the position of the guidewire was verified, we reamed to appropriate depth and placed a lag screw over the guidewire and into the femoral head. The position of the lag screw was assessed with fluoroscopy. The guidewire was then removed from the femoral head. The set screw was placed proximally, brought fully down and then released a quarter turn to allow compression. Stab incisions was made over the lateral femur at the site of the distal interlocking screw holes and 2 distal interlocking screws were placed using the perfect [place] technique. Final fluoroscopic images were taken showing excellent reduction of the fracture and appropriate position of the implants. All wounds were thoroughly irrigated and closed in layers. Sterile dressings were applied. The drapes were taken down, the patient was transferred off the Bucklin table, and was brought to recovery having tolerated the procedure well. PLAN: Toe-touch weightbearing on the left lower extremity. 2 doses of postoperative antibiotics. DVT prophylaxis with aspirin 81 mg twice a day starting the day of surgery. Dressing change on postoperative day #2. Appreciate Internal Medical assistance with perioperative medical management. Discharge planning in process.
--- NOTE | 2024-02-18 19:00 | XR ---
Fluoroscopy INDICATION: Pain FINDINGS: Fluoroscopy time: 2 minutes 55.3 seconds. Total dose area product (DAP) in uGy*m?, mGy*cm? (or similar): 3.8213 Images obtained: 13. IMPRESSION: 1. Documentation of fluoroscopy.
[2024-02-18 20:52] LABS: Basophils % (A) 0 %; Eosinophils % (A) 0 %; HCT 25.7 % (34.0-46.0); HGB 7.9 gm/dL (11.4-16.0); Lymphocytes # (A) 0.4 k/uL (1.0-4.8); Lymphocytes % (A) 4 %; MCH 29.4 pg (25.0-35.0); MCHC 30.8 g/dL (31.0-37.0); MCV 95.4 fL (80.0-100.0); Mean Platelet Volume 8.4; Monocytes # (A) 0.3 k/uL (0-1.0); Monocytes % (A) 2 %; Neutrophils # (A) 11.3 k/uL (1.3-7.7); Neutrophils % (A) 94 %; Platelet Count 188 k/uL (150-450); RBC 2.69 m/uL (3.80-5.40)
[2024-02-18] MEDS: SENNOSIDES-DOCUSATE SODIUM 1 EACH TAB PO SCH (20:54)
[2024-02-18] MEDS: HYDROcodone/APAP 10-325MG 1 EACH TAB PO PRN (20:54)
[2024-02-18] MEDS: METOPROLOL TARTRATE 50 MG TAB PO SCH (22:24)
--- NOTE | 2024-02-19 06:41 | CA ---
Transthoracic Echo Report Name: Roseann Jaramillo Age: 89 Gender: F : 1935 Exam Date: 02/18/2024 09:36 Exam Location: [facility] Ht (in): 60 Wt (lb): 104 Ordering Physician: Nena Bello Attending/Referring Phys: [id number], Ace Buckle Attacher Reyna Garza RDCS Procedure CPT: Indications: LVF for preop clearance Cardiac Hx: Technical Quality: Fair Contrast 1: Total Dose (mL): Contrast 2: Total Dose (mL): MEASUREMENTS (Male / Female) Normal Values 2D ECHO LV Diastolic Diameter PLAX 3.1 cm 4.2 - 5.9 / 3.9 - 5.3 cm LV Systolic Diameter PLAX 2.4 cm IVS Diastolic Thickness 1.2 cm 0.6 - 1.0 / 0.6 - 0.9 cm LVPW Diastolic Thickness 1.1 cm 0.6 - 1.0 / 0.6 - 0.9 cm LV Relative Wall Thickness 0.7 RV Internal Dim ED PLAX 2.7 cm LA Volume 60.4 cm??? 18 - 58 / 22 - 52 cm??? LA Volume Index 42.7 cm???/m??? 16 - 28 cm???/m??? M-MODE Aortic Root Diameter MM 1.5 cm LA Systolic Diameter MM 1.2 cm LA Ao Ratio MM 0.8 AV Cusp Separation MM 0.5 cm DOPPLER AV Peak Velocity 297.0 cm/s AV Peak Gradient 35.3 mmHg AV Mean Velocity 219.6 cm/s AV Mean Gradient 20.7 mmHg AV Velocity Time Integral 54.3 cm LVOT Peak Velocity 119.8 cm/s LVOT Peak Gradient 5.7 mmHg LVOT Velocity Time Integral 23.7 cm MV Peak Velocity 188.1 cm/s MV Peak Gradient 14.2 mmHg MV Mean Velocity 89.0 cm/s MV Mean Gradient 3.8 mmHg MV Velocity Time Integral 36.9 cm MV Area PHT 5.2 cm??? Mitral E Point Velocity 90.2 cm/s Mitral A Point Velocity 179.7 cm/s Mitral E to A Ratio 0.5 MV Deceleration Time 146.4 ms MV E' Velocity 4.1 cm/s Mitral E to MV E' Ratio 21.8 TR Peak Velocity 272.0 cm/s TR Peak Gradient 29.6 mmHg Right Ventricular Systolic Press 34.5 mmHg FINDINGS Left Ventricle Mildly increased left ventricular wall thickness. Left ventricular cavity size normal. No obvious regional wall motion abnormalities. Left ventricular ejection fraction is estimated at 50-55 %. Right Ventricle Normal right ventricular size and function. Right ventricular systolic pressure within normal limits. Right Atrium Normal right atrial size. Left Atrium Mildly increased left atrial volume. Mitral Valve Mitral valve thickened. Severe mitral annular calcification. [id number] mitral regurgitation. Aortic Valve Moderate aortic stenosis with a peak gradient of 35 mmHg and a mean gradient of 21 mmHg. No aortic regurgitation. Tricuspid Valve Structurally normal tricuspid valve. Mild tricuspid regurgitation. Pulmonic Valve Structurally normal pulmonic valve. Pericardium No pericardial effusion. Aorta Normal size aortic root and proximal ascending aorta. CONCLUSIONS Normal LV systolic function Severe mitral annular calcification with [id number] mitral regurgitation Severe aortic sclerosis with moderate aortic stenosis and mean gradient of 21 mmHg with no regurgitation Previewed by: Dr. Nish Vanegas MD (Electronically Signed) Final Date: 19 Feb 2024 06:40
--- NOTE | 2024-02-19 07:25 | FL ---
EXAMINATION TYPE: FL guidance operating room Intraoperative/procedural fluoroscopic services were pro vided. Total fluoroscopy time is 2 minutes 55 seconds with a total of 12 submitted images [address] PACS[address] ease see the operative/procedural note for further details. DAP: 3.821 Gycm2
[2024-02-19 09:41] LABS: HCT 22.8 % (34.0-46.0); HGB 7.1 gm/dL (11.4-16.0); MCH 29.8 pg (25.0-35.0); MCV 96.1 fL (80.0-100.0); Mean Platelet Volume 8.6; Platelet Count 192 k/uL (150-450); RBC 2.37 m/uL (3.80-5.40); WBC 12.8 k/uL (3.8-10.6)
[2024-02-19 09:55] LABS: African American GFR (CKD) 71 (>60 ml/min/1.73 sqM); Anion Gap 6 mmol/L; Blood Urea Nitrogen 17 mg/dL (7-17); Calcium 7.7 mg/dL (8.4-10.2); Carbon Dioxide 25 mmol/L (22-30); Chloride 107 mmol/L (98-107); Glucose 138 mg/dL (74-99); Non-African American GFR(CKD) 61 (>60 ml/min/1.73 sqM); Potassium 4.4 mmol/L (3.5-5.1); Sodium 138 mmol/L (137-145)
[2024-02-19] MEDS: MULTIVITAMINS, THERA 1 EACH TAB PO SCH (10:18)
[2024-02-19] MEDS: MAGNESIUM HYDROXIDE 2,400 MG/30 ML CUP PO PRN (10:37)
[2024-02-19 11:37] VITALS: BMI 20.2
--- NOTE | 2024-02-19 13:15 | P.PN ---
Subjective Progress Note Date: 02/19/24 Doing well this morning. Pain controlled. Denies CP/SOB. Objective - Vital Signs Vital signs: Vital Signs Temp 97.8 F 02/19/24 07:28 Pulse 76 02/19/24 07:45 Resp 16 02/19/24 07:45 BP 99/61 02/19/24 07:28 Pulse Ox 99 02/19/24 07:28 FiO2 Intake & Output 02/18/24 02/19/24 02/19/24 18:59 06:59 18:59 Intake Total 1050 100 Output Total 200 700 Balance 850 -600 Weight 47.174 kg Intake: IV 1050 100 Output: Urine 700 Estimated Blood Loss 200 Other: Voiding Method External Catheter Indwelling Catheter Indwelling Catheter - Exam Patient resting comfortably in bed. Alert and answers questions. LEFT LE: Dressings over hip and lateral thigh/leg intact. Thigh swollen, but soft. No pain with PROM knee/ankle. Motor and Sensory function intact. - Labs CBC & Chem 7: 02/19/24 08:51 02/19/24 08:51 Labs: Abnormal Lab Results - Last 24 Hours (Table) 02/18/24 02/18/24 02/18/24 Range/Units 14:28 14:28 20:21 WBC 12.0 H (3.8-10.6) k/uL RBC 2.92 L 2.69 L (3.80-5.40) m/uL Hgb 8.9 L D 7.9 L (11.4-16.0) gm/dL Hct 27.3 L 25.7 L (34.0-46.0) % MCHC 30.8 L (31.0-37.0) g/dL Neutrophils # 11.3 H (1.3-7.7) k/uL Lymphocytes # 0.4 L (1.0-4.8) k/uL Chloride 109 H (98-107) mmol/L Glucose 117 H (74-99) mg/dL Calcium 8.1 L (8.4-10.2) mg/dL 02/19/24 02/19/24 Range/Units 08:51 08:51 WBC 12.8 H (3.8-10.6) k/uL RBC 2.37 L (3.80-5.40) m/uL Hgb 7.1 L (11.4-16.0) gm/dL Hct 22.8 L (34.0-46.0) % MCHC (31.0-37.0) g/dL Neutrophils # (1.3-7.7) k/uL Lymphocytes # (1.0-4.8) k/uL Chloride (98-107) mmol/L Glucose 138 H (74-99) mg/dL Calcium 7.7 L (8.4-10.2) mg/dL Assessment and Plan Assessment: POD#1 s/p long gamma nail for comminuted peritrochanteric femur fracture with subtrochanteric extension Plan: 1. TTWB Left LE with assistance/walker 2. Mobilize OOB to chair when able 3. DVT prophylaxis with ASA 81 mg BID 4. Appreciate IM assistance with perioperative medical management 5. Leave dressings in place 6. Discharge planning in progress
--- NOTE | 2024-02-19 14:02 | P.PN ---
Subjective Progress Note Date: 02/19/24 History of present illness: This is an 89-year-old female patient of Dr. Gordon with past medical history of hypertension, hyperlipidemia, carotid artery stenosis status post carotid intervention by Dr. Elizabeth in October 2022 with stent, moderate aortic stenosis. We have been asked to evaluate the patient for preop clearance. Patient states that she had a fall at home when she turned to answer the phone. Patient was found to have a left femoral fracture and is scheduled this afternoon for a left femoral IM nail. Patient denies having any chest pain or shortness of breath. She denies any loss of consciousness. She is currently on Plavix for carotid stent that was done in October,. Potassium was replaced. EKG sinus rhythm with PACs Chest x-ray: No acute process WBC 18.1, hemoglobin 11, platelet count 115. INR 1. Sodium 139, potassium 3.3, BUN 12 and creatinine 0.59. Blood sugar 127. Home cardiac medications: Plavix 75 mg daily, Zetia 10 mg daily, losartan 50 mg twice daily, Lopressor 50 mg twice daily. Echocardiogram performed in the office on 02/15/2023 revealed EF of 55 to 60%. Mild left ventricular hypertrophy. Trace aortic regurgitation and moderate aortic stenosis. Moderate mitral regurgitation. Mild mitral stenosis. Mild to moderate tricuspid regurgitation. Pulmonary artery systolic pressure of 38 mmHg. Mild pulmonic regurgitation. Lexiscan Cardiolite stress test performed 12/05/2021 in the office revealed a negative Lexiscan stress test. Probably normal perfusion study with mild fixed defect in the anterior apical wall, seems to be secondary to soft tissue attenuation though previous myocardial infarction cannot be completely excluded. Gated images showed fair systolic function with questionable hypokinesia of the inferior basal segment. Echocardiogram reveals moderate aortic stenosis. Patient is at intermediate risk for cardiovascular complications during the perioperative period. 02/18 Yesterday, patient underwent nail of the left proximal femur fracture. Blood pressure running between 99/61-108/54. Heart rate 76, pulse ox 99% on 2 L nasal cannula. Repeat blood work reveals hemoglobin is 7.1 Assessment: Left subtrochanteric hip fracture status post IM nail 02/17 Moderate aortic stenosis Hypertension Hyperlipidemia Carotid artery stenosis status post stent in October 2022 Acute blood loss anemia Plan: Continue patient's home cardiac medications Resume Plavix once cleared by orthopedic surgeon Cardiology will sign off this case and follow on an as-needed basis. Please reconsult for any new concerns. Patient may follow-up in the office in one to 2 weeks. Nurse practitioner note has been reviewed, I agree with documented findings and plan of care. Patient was seen and examined. Objective - Vital Signs Vital signs: Vital Signs Temp 97.8 F 02/19/24 07:28 Pulse 76 02/19/24 07:45 Resp 16 02/19/24 07:45 BP 99/61 02/19/24 07:28 Pulse Ox 99 02/19/24 07:28 FiO2 Intake & Output 02/18/24 02/19/24 02/19/24 18:59 06:59 18:59 Intake Total 1050 100 Output Total 200 700 Balance 850 -600 Weight 47.174 kg Intake: IV 1050 100 Output: Urine 700 Estimated Blood Loss 200 Other: Voiding Method External Catheter Indwelling Catheter Indwelling Catheter - Labs CBC & Chem 7: 02/19/24 08:51 02/19/24 08:51 Labs: Abnormal Lab Results - Last 24 Hours (Table) 02/18/24 02/18/24 02/18/24 Range/Units 14:28 14:28 20:21 WBC 12.0 H (3.8-10.6) k/uL RBC 2.92 L 2.69 L (3.80-5.40) m/uL Hgb 8.9 L D 7.9 L (11.4-16.0) gm/dL Hct 27.3 L 25.7 L (34.0-46.0) % MCHC 30.8 L (31.0-37.0) g/dL Neutrophils # 11.3 H (1.3-7.7) k/uL Lymphocytes # 0.4 L (1.0-4.8) k/uL Chloride 109 H (98-107) mmol/L Glucose 117 H (74-99) mg/dL Calcium 8.1 L (8.4-10.2) mg/dL 02/19/24 02/19/24 Range/Units 08:51 08:51 WBC 12.8 H (3.8-10.6) k/uL RBC 2.37 L (3.80-5.40) m/uL Hgb 7.1 L (11.4-16.0) gm/dL Hct 22.8 L (34.0-46.0) % MCHC (31.0-37.0) g/dL Neutrophils # (1.3-7.7) k/uL Lymphocytes # (1.0-4.8) k/uL Chloride (98-107) mmol/L Glucose 138 H (74-99) mg/dL Calcium 7.7 L (8.4-10.2) mg/dL
[2024-02-19 16:09] LABS: % Iron Saturation 7.31 (12.00-45.00); Ferritin 83.6 ng/mL (10.0-291.0)
--- NOTE | 2024-02-19 17:06 | P.PN ---
Subjective Progress Note Date: 02/19/24 (delayed charting seen at 1030) Patient is an 89-year-old female with known carotid artery stenosis status post stenting, hypertension, and dyslipidemia who presented to the hospital with complaints of left hip pain after a fall. In the emergency department she underwent extensive evaluation. Labs remarkable for white blood cell count 18.1, hemoglobin 11, platelets 115, potassium 3.3. She was ultimately found to have a left subtrochanteric hip fracture. She was admitted to orthopedic surg [facility] and we were asked to consult. She underwent IM nailing on 02/17/23. Patient seen and examined at bedside. Her pain is well-controlled. We discussed that her hemoglobin is 7.1 and if it is less than 7 we would recommend transfusion. She would like to avoid that if at all possible but is willing to have IV iron. She denies any chest pain, shortness of breath, lightheadedness, dizziness. Vital signs reviewed General: Nontoxic, no distress, appears at stated age Cardiovascular: S1S2 reg, Grade 4 systolic ejection murmur Lungs: CTA bilateral, no rhonchi, no rales, no accessory muscle use Abdominal: Soft, nontender to palpation, no guarding Ext: No gross muscle atrophy, no edema b/l lower extremities, no contractures Neuro: CN II-XI grossly intact, no focal neuro deficits Psych: Alert, oriented, appropriate affect Assessment/Plan: Patient is an 89 yo Female with Left subtrochanteric hip fracture s/p IM nailing on 02/11/24 - management per ortho Acute blood loss anemia with iron deficiency anemia -Iron studies ordered and reviewed. TSAT 7.31 with a total iron 83.6 -IV iron 125 mg IV piggyback daily x 3 doses -Repeat CBC in a.m. -Discussed with patient who does not want transfusion unless symptomatic. - hold Plavix today due to anemia and ortho has alredy said okay to resume. If HgB stable in AM anticipate ordeing plavix 75 mg. Hypertension Dyslipidemia Carotid artery disease Moderate aortic stenosis -Plavix is on hold due to anemia. - metoprolol 50 mg twice daily. -Cozaar 50 mg twice daily -Zetia 10 mg daily -Follow blood pressures -Cardiology note reviewed: Resume Plavix once cleared by orthopedic surgery. Cardiology will sign off and follow on an as-needed basis. Follow-up in office in 2 weeks. -Orthopedic surgery note reviewed: Okay to resume Plavix. Hypokalemia, resolved Imaging: None new Data Review: Labs reviewed from today include CBC, CMP which are remarkable for hemoglobin 7 .1 (11 before surgery yesterday,). Iron studies ordered and reviewed percent saturation 7.31 with ferritin less than 100 at 83.6. Thank you for allowing us to participate in the care of this pleasant patient. Do not hesitate to contact us with questions. Someone can be reached from the [facility] hospitalist group all hours of the day at [phone] or via [employer]. This dictation was prepared using [employer] voice recognition software. Though every attempt is made to correct errors during dictation some may still exist. Objective - Vital Signs Vital signs: Vital Signs Temp 97.8 F 02/19/24 07:28 Pulse 76 02/19/24 14:00 Resp 16 02/19/24 14:00 BP 99/61 02/19/24 07:28 Pulse Ox 99 02/19/24 07:28 FiO2 Intake & Output 02/18/24 02/19/24 02/19/24 18:59 06:59 18:59 Intake Total 1050 100 450 Output Total 200 700 Balance 850 -600 450 Weight 47.174 kg Intake: IV 1050 100 Oral 450 Output: Urine 700 Estimated Blood Loss 200 Other: Voiding Method External Catheter Indwelling Catheter Indwelling Catheter - Labs CBC & Chem 7: 02/19/24 08:51 02/19/24 08:51 Labs: Abnormal Lab Results - Last 24 Hours (Table) 02/18/24 02/19/24 02/19/24 Range/Units 20:21 08:51 08:51 WBC 12.0 H 12.8 H (3.8-10.6) k/uL RBC 2.69 L 2.37 L (3.80-5.40) m/uL Hgb 7.9 L 7.1 L (11.4-16.0) gm/dL Hct 25.7 L 22.8 L (34.0-46.0) % MCHC 30.8 L (31.0-37.0) g/dL Neutrophils # 11.3 H (1.3-7.7) k/uL Lymphocytes # 0.4 L (1.0-4.8) k/uL Glucose 138 H (74-99) mg/dL Calcium 7.7 L (8.4-10.2) mg/dL Iron (50-170) UG/DL % Saturation (12.00-45.00) Transferrin (204.0-354.0) mg/dL 02/19/24 Range/Units 08:51 WBC (3.8-10.6) k/uL RBC (3.80-5.40) m/uL Hgb (11.4-16.0) gm/dL Hct (34.0-46.0) % MCHC (31.0-37.0) g/dL Neutrophils # (1.3-7.7) k/uL Lymphocytes # (1.0-4.8) k/uL Glucose (74-99) mg/dL Calcium (8.4-10.2) mg/dL Iron 19 L (50-170) UG/DL % Saturation 7.31 L (12.00-45.00) Transferrin 186.0 L (204.0-354.0) mg/dL
[2024-02-19] MEDS: SODIUM FERRIC GLUCONAT-SUCROSE 125 MG in SODIUM CHLORIDE 0.9% 100 ML IVPB ONE (18:22)
[2024-02-19] MEDS ORDERED: ASPIRIN 81 MG PO SCH (21:00)
[2024-02-20 06:29] LABS: HCT 20.4 % (34.0-46.0); MCH 29.5 pg (25.0-35.0); MCHC 30.8 g/dL (31.0-37.0); MCV 95.8 fL (80.0-100.0); Mean Platelet Volume 9.2; Platelet Count 177 k/uL (150-450); RBC 2.13 m/uL (3.80-5.40); RDW 14.1 % (11.5-15.5); WBC 15.2 k/uL (3.8-10.6)
[2024-02-20 06:32] LABS: HGB 6.3 gm/dL (11.4-16.0)
[2024-02-20 06:38] LABS: ALT 13 U/L (4-34); AST 28 U/L (14-36); African American GFR (CKD) >90 (>60 ml/min/1.73 sqM); Albumin 2.4 g/dL (3.5-5.0); Albumin/Globulin Ratio 1.1; Alkaline Phosphatase 47 U/L (38-126); Anion Gap 2 mmol/L; Blood Urea Nitrogen 26 mg/dL (7-17); Calcium 7.5 mg/dL (8.4-10.2); Carbon Dioxide 26 mmol/L (22-30); Chloride 110 mmol/L (98-107); Globulin 2.1 g/dL; Glucose 136 mg/dL (74-99); Non-African American GFR(CKD) 79 (>60 ml/min/1.73 sqM); Potassium 4.1 mmol/L (3.5-5.1); Sodium 138 mmol/L (137-145); Total Bilirubin 0.4 mg/dL (0.2-1.3); Total Protein 4.5 g/dL (6.3-8.2)
--- NOTE | 2024-02-20 07:45 | P.PN ---
Subjective Patient is doing well this morning with no complaints other than some discomfort in her left thigh. She denies chest pain, shortness of breath, or feeling lightheaded. Objective - Vital Signs Vital signs: Vital Signs Temp 98.5 F 02/20/24 02:00 Pulse 77 02/20/24 02:00 Resp 20 02/20/24 02:00 BP 129/66 02/20/24 02:00 Pulse Ox 100 02/20/24 02:00 FiO2 Intake & Output 02/19/24 02/20/24 02/20/24 18:59 06:59 18:59 Intake Total 450 Output Total 200 Balance 450 -200 Weight 47.174 kg Intake: Oral 450 Output: Urine/Stool Mix 200 Other: Voiding Method Indwelling Catheter Bedside Commode # Voids 2 # Bowel Movements 1 2 - Exam Patient is alert and able to answer questions. Focused exam the left lower extremity was conducted. On inspection she has intact dressings over the lateral aspect of the hip and femur with small areas of strike through but no active bleeding. There is moderate swelling her thigh but it is soft and compressible. Femoral nerve function is intact. She is able to actively plantarflex and dorsiflex her ankle and her toes. - Labs CBC & Chem 7: 02/20/24 06:06 02/20/24 06:06 Labs: Abnormal Lab Results - Last 24 Hours (Table) 02/19/24 02/19/24 02/19/24 Range/Units 08:51 08:51 08:51 WBC 12.8 H (3.8-10.6) k/uL RBC 2.37 L (3.80-5.40) m/uL Hgb 7.1 L (11.4-16.0) gm/dL Hct 22.8 L (34.0-46.0) % MCHC (31.0-37.0) g/dL Chloride (98-107) mmol/L BUN (7-17) mg/dL Glucose 138 H (74-99) mg/dL Calcium 7.7 L (8.4-10.2) mg/dL Iron 19 L (50-170) UG/DL % Saturation 7.31 L (12.00-45.00) Transferrin 186.0 L (204.0-354.0) mg/dL Total Protein (6.3-8.2) g/dL Albumin (3.5-5.0) g/dL 02/20/24 02/20/24 Range/Units 06:06 06:06 WBC 15.2 H (3.8-10.6) k/uL RBC 2.13 L (3.80-5.40) m/uL Hgb 6.3 L* (11.4-16.0) gm/dL Hct 20.4 L (34.0-46.0) % MCHC 30.8 L (31.0-37.0) g/dL Chloride 110 H (98-107) mmol/L BUN 26 H (7-17) mg/dL Glucose 136 H (74-99) mg/dL Calcium 7.5 L (8.4-10.2) mg/dL Iron (50-170) UG/DL % Saturation (12.00-45.00) Transferrin (204.0-354.0) mg/dL Total Protein 4.5 L (6.3-8.2) g/dL Albumin 2.4 L (3.5-5.0) g/dL Assessment and Plan Assessment: Left subtrochanteric femur fracture postoperative day 2 status post long gamma nail Pre-existing anemia with acute blood loss anemia History of Plavix Plan: Continue treatment as outlined yesterday. Continue attempts at mobilization out of bed to chair. Toe-touch weightbearing left lower extremity.The patient's drop in hemoglobin is expected given the patient's pre-existing use of Plavix and fracture pattern. The patient's hemoglobin dropped from 11 to 8.9 BEFORE surgery. Blood loss at surgery was as expected. I will defer to internal m edicine regarding transfusion. The patient's thigh is soft and compressible with no active drainage. We'll defer anticoagulation and resuming Plavix to internal medicine. We'll continue to monitor. Discharge planning process.
[2024-02-20] MEDS: SODIUM FERRIC GLUCONAT-SUCROSE 125 MG in SODIUM CHLORIDE 0.9% 100 ML IVPB SCH (09:20)
--- NOTE | 2024-02-20 16:07 | P.PN ---
Subjective Progress Note Date: 02/20/24 Patient is an 89-year-old female with known carotid artery stenosis status post stenting, hypertension, and dyslipidemia who presented to the hospital with complaints of left hip pain after a fall. In the emergency department she underwent extensive evaluation. Labs remarkable for white blood cell count 18.1, hemoglobin 11, platelets 115, potassium 3.3. She was ultimately found to have a left subtrochanteric hip fracture. She was admitted to orthopedic surgery and we were asked to consult. She underwent IM nailing on 02/17/23. Patient seen and examined at bedside. Her pain is well-controlled. CBC WBC 15.2 Hg 6.3 Hct 20.4. CMP Cl 110, BUN 26, glu 136, Ca 7.5, alb 2.4. General: Nontoxic, no distress, appears at stated age Derm: Warm, dry Head: Atraumatic, normocephalic, symmetric Eyes: EOMI, no lid lag, anicteric sclera Mouth: No lip lesion, mucus membranes moist Cardiovascular: S1S2 reg, systolic murmur Lungs: CTA bilateral, no rhonchi, no rales, no accessory muscle use Ext: No gross muscle atrophy, no edema, no contractures Neuro: no focal neuro deficits Psych: Alert, oriented, appropriate affect Acute blood loss anemia with iron deficiency anemia: TSAT 7.31 with a total iron 83.6. IV iron 125 mg IV piggyback daily (2/3 doses). Transfuse 1 PRBC. Repeat CBC tomorrow. Restart Plavix 75 mg PO QD when Hg is stable. Hypertension: Metoprolol 50 mg PO BID. Losartan 50 mg PO BID. Dyslipidemia: Zetia 10 mg PO QD. Carotid artery disease Moderate aortic stenosis CODE STATUS: FULL CODE DVT Prophylaxis: SCD GI Prophylaxis: Designated medical POA if patient is not able to make medical decisions for themselves: I have reviewed the following market intelligence consultant notes: Orthopedic I have reviewed the results of the following tests: CBC, BMP I have ordered the following tests: CBC I have discussed the care of this patient with the following independent historian: RN I have independently interpreted the following test below: I have discussed the management of this patient with the following physician: Objective - Vital Signs Vital signs: Vital Signs Temp 98.2 F 02/20/24 14:06 Pulse 85 02/20/24 14:06 Resp 17 02/20/24 14:06 BP 94/54 02/20/24 14:06 Pulse Ox 97 02/20/24 13:11 FiO2 Intake & Output 02/19/24 02/20/24 02/20/24 18:59 06:59 18:59 Intake Total 450 310 Output Total 200 Balance 450 -200 310 Weight 47.174 kg Intake: Oral 450 Blood Product 310 Rc As-1 Unit 310 [id number] Output: Urine/Stool Mix 200 Other: Voiding Method Indwelling Catheter Bedside Commode # Voids 2 1 # Bowel Movements 1 2 - Labs CBC & Chem 7: 02/20/24 06:06 02/20/24 06:06 Labs: Abnormal Lab Results - Last 24 Hours (Table) 02/17/24 02/19/24 02/20/24 Range/Units 16:32 08:51 06:06 WBC 15.2 H (3.8-10.6) k/uL RBC 2.13 L (3.80-5.40) m/uL Hgb 6.3 L* (11.4-16.0) gm/dL Hct 20.4 L (34.0-46.0) % MCHC 30.8 L (31.0-37.0) g/dL Chloride (98-107) mmol/L BUN (7-17) mg/dL Glucose (74-99) mg/dL Calcium (8.4-10.2) mg/dL Iron 19 L (50-170) UG/DL % Saturation 7.31 L (12.00-45.00) Transferrin 186.0 L (204.0-354.0) mg/dL Total Protein (6.3-8.2) g/dL Albumin (3.5-5.0) g/dL Crossmatch See Detail 02/20/24 Range/Units 06:06 WBC (3.8-10.6) k/uL RBC (3.80-5.40) m/uL Hgb (11.4-16.0) gm/dL Hct (34.0-46.0) % MCHC (31.0-37.0) g/dL Chloride 110 H (98-107) mmol/L BUN 26 H (7-17) mg/dL Glucose 136 H (74-99) mg/dL Calcium 7.5 L (8.4-10.2) mg/dL Iron (50-170) UG/DL % Saturation (12.00-45.00) Transferrin (204.0-354.0) mg/dL Total Protein 4.5 L (6.3-8.2) g/dL Albumin 2.4 L (3.5-5.0) g/dL Crossmatch
[2024-02-20] MEDS: HYDROcodone/APAP 5-325MG 1 EACH TAB PO PRN (18:16)
[2024-02-20] MEDS: hydrOXYzine pamoate 25 MG CAP PO PRN (18:18)
[2024-02-21 04:00] VITALS: TEMP 98.6
[2024-02-21 08:06] LABS: African American GFR (CKD) >90 (>60 ml/min/1.73 sqM); Anion Gap 1 mmol/L; Blood Urea Nitrogen 22 mg/dL (7-17); Calcium 7.7 mg/dL (8.4-10.2); Carbon Dioxide 27 mmol/L (22-30); Chloride 111 mmol/L (98-107); Glucose 97 mg/dL (74-99); HCT 24.3 % (34.0-46.0); HGB 7.8 gm/dL (11.4-16.0); MCH 30.9 pg (25.0-35.0); MCV 96.4 fL (80.0-100.0); Mean Platelet Volume 8.8; Non-African American GFR(CKD) 80 (>60 ml/min/1.73 sqM); Platelet Count 181 k/uL (150-450); Potassium 4.2 mmol/L (3.5-5.1); RBC 2.52 m/uL (3.80-5.40); RDW 14.7 % (11.5-15.5); Sodium 139 mmol/L (137-145); WBC 13.6 k/uL (3.8-10.6)
[2024-02-21 11:09] VITALS: BP 103/64; PULSE 92; RESP 18
--- NOTE | 2024-02-21 11:35 | P.PN ---
Subjective Progress Note Date: 02/21/24 Patient is an 89-year-old female with known carotid artery stenosis status post stenting, hypertension, and dyslipidemia who presented to the hospital with complaints of left hip pain after a fall. In the emergency department she underwent extensive evaluation. Labs remarkable for white blood cell count 18.1, hemoglobin 11, platelets 115, potassium 3.3. She was ultimately found to have a left subtrochanteric hip fracture. She was admitted to orthopedic surgery and we were asked to consult. She underwent IM nailing on 02/17/23. 02/20 Patient seen and examined at bedside. Her pain is well-controlled. CBC WBC 15.2 Hg 6.3 Hct 20.4. CMP Cl 110, BUN 26, glu 136, Ca 7.5, alb 2.4. 02/21 Patient was seen and examined. No complaints today. Pain well controlled. Transfused 1 unit PRBC yesterday. CBC WBC 13.6 Hg 7.8 Hct 24.3. BMP Cl 111, BUN 22, Ca 7.7. General: Nontoxic, no distress, appears at stated age Derm: Warm, dry Head: Atraumatic, normocephalic, symmetric Eyes: EOMI, no lid lag, anicteric sclera Mouth: No lip lesion, mucus membranes moist Cardiovascular: S1S2 reg, systolic murmur Lungs: CTA bilateral, no rhonchi, no rales, no accessory muscle use Ext: No gross muscle atrophy, no edema, no contractures Neuro: no focal neuro deficits Psych: Alert, oriented, appropriate affect Acute blood loss anemia with iron deficiency anemia: TSAT 7.31 with a total iron 83.6. IV iron 125 mg IV piggyback daily (3/3 doses). 1 PRBC /. Restart Plavix 75 mg PO QD on discharge. Hypertension: Metoprolol 50 mg PO BID. Losartan 50 mg PO BID. Dyslipidemia: Zetia 10 mg PO QD. Carotid artery disease Moderate aortic stenosis Patient is medically stable for discharge. Repeat CBC in 3 days. CODE STATUS: FULL CODE DVT Prophylaxis: SCD GI Prophylaxis: Designated medical POA if patient is not able to make medical decisions for themselves: I have reviewed the following it sales consultant notes: Orthopedic I have reviewed the results of the following tests: CBC, BMP I have ordered the following tests: CBC I have discussed the care of this patient with the following independent historian: RN, Case management I have independently interpreted the following test below: I have discussed the management of this patient with the following physician: Objective - Vital Signs Vital signs: Vital Signs Temp 98.6 F 02/21/24 01:23 Pulse 92 02/21/24 07:03 Resp 18 02/21/24 07:03 BP 103/64 02/21/24 07:03 Pulse Ox 99 02/21/24 07:03 FiO2 Intake & Output 02/20/24 02/21/24 02/21/24 18:59 06:59 18:59 Intake Total 310 480 Balance 310 480 Intake: Oral 480 Blood Product 310 Rc As-1 Unit 310 [id number] Other: Voiding Method Bedside Commode # Voids 2 3 # Bowel Movements 1 - Labs CBC & Chem 7: 02/21/24 07:29 02/21/24 07:29 Labs: Abnormal Lab Results - Last 24 Hours (Table) 02/17/24 02/21/24 02/21/24 Range/Units 16:32 07:29 07:29 WBC 13.6 H (3.8-10.6) k/uL RBC 2.52 L (3.80-5.40) m/uL Hgb 7.8 L D (11.4-16.0) gm/dL Hct 24.3 L (34.0-46.0) % Chloride 111 H (98-107) mmol/L BUN 22 H (7-17) mg/dL Calcium 7.7 L (8.4-10.2) mg/dL Crossmatch See Detail
--- NOTE | 2024-02-21 12:41 | P.DS ---
Providers Date of admission: 02/17/24 17:33 Expected date of discharge: 02/21/24 Attending physician: Víctor Landeros Consults: 02/17/24 17:33 Consult Physician Routine Consulting Provider: Marlin Parnell Consult Reason/Comments: Medical management, preoperative clearance Do you want consulting provider notified?: Already Contacted 02/18/24 08:24 Consult Physician Routine Consulting Provider: Kevin Gordon Consult Reason/Comments: cardiac clearance Do you want consulting provider notified?: Yes Primary care physician: Vidal Beaulieu - Discharge Diagnosis(es) (1) Status post hip surgery Current Visit: Yes Status: Acute (2) Subtrochanteric fracture of left femur Current Visit: Yes Status: Acute Hospital Course: This is an 89-year-old female who presented to ER at [facility] after sustaining a twisting injury at home then fell. She experienced immediate left hip pain and inability to ambulate. She was found to have a subtrochanteric fracture of the left femur in the ER. After discussion and consideration the patient elected to proceed with left long cephalomedullary nail. The patient was seen preoperatively by internal medicine and cleared for surgery. The patient underwent a left long cephalomedullary nail on 02/18/2024. The procedure was performed without complication or sequelae. The patient is doing well postoperatively. Labs and vital signs are stable the day of discharge. On the day of discharge the patient's hip incision is healing well. There is minimal erythema. There is no drainage noted at this time. There is minimal soft tissue swelling to the hip and thigh. The patient has full foot and ankle motion without difficulty or pain. Neurovascular status to the left lower extremity is intact. The patient will be discharged to skilled rehab today in stable condition. Pertinent Studies: Laboratory Tests 02/21/24 02/21/24 07:29 07:29 WBC 13.6 H RBC 2.52 L Hgb 7.8 L D Hct 24.3 L Chloride 111 H BUN 22 H Calcium 7.7 L Patient Condition at Discharge: Stable Plan - Discharge Summary Discharge Rx Participant: No New Discharge Prescriptions: No Action Clopidogrel [Plavix] 75 mg PO DAILY Cyanocobalamin [Vitamin B-12] 1,000 mcg PO DAILY Ascorbic Acid [Vitamin C] 500 mg PO DAILY Ezetimibe [Zetia] 10 mg PO DAILY Ubidecarenone [Coenzyme Q10] 200 mg PO BID Calcium Carb/Mag Ox/Zinc Sulf [Tnt-Hya-Tlay 334-134-5 mg Tab] 1 tab PO BID Sertraline HCl [Zoloft] 50 mg PO DAILY Multivitamins, Thera [Multivitamin (formulary)] 1 tab PO DAILY Losartan [Cozaar] 50 mg PO BID methocarbamoL 750 mg PO TID PRN PRN Reason: Muscle Pain Metoprolol Tartrate [Lopressor] 50 mg PO BID ALPRAZolam [Xanax] 0.25 mg PO TID PRN PRN Reason: Anxiety Vitamin C/Biotin [Hair, Skin and Nails Chew] 1 tab PO DAILY Hair Volume Supplement 1 tab PO DAILY Lactose-Reduced Food [Ensure Plus] 1 can PO TID Discharge Medication List Clopidogrel [Plavix] 75 mg PO DAILY 10/25/22 [History] Sertraline HCl [Zoloft] 50 mg PO DAILY 10/25/22 [History] ALPRAZolam [Xanax] 0.25 mg PO TID PRN 02/17/24 [History] Ascorbic Acid [Vitamin C] 500 mg PO DAILY 02/17/24 [History] Calcium Carb/Mag Ox/Zinc Sulf [Sym-Izw-Ohss 334-134-5 mg Tab] 1 tab PO BID 02/17/24 [History] Cyanocobalamin [Vitamin B-12] 1,000 mcg PO DAILY 02/17/24 [History] Ezetimibe [Zetia] 10 mg PO DAILY 02/17/24 [History] Hair Volume Supplement 1 tab PO DAILY 02/17/24 [History] Lactose-Reduced Food [Ensure Plus] 1 can PO TID 02/17/24 [History] Losartan [Cozaar] 50 mg PO BID 02/17/24 [History] Metoprolol Tartrate [Lopressor] 50 mg PO BID 02/17/24 [History] Multivitamins, Thera [Multivitamin (formulary)] 1 tab PO DAILY 02/17/24 [History] Ubidecarenone [Coenzyme Q10] 200 mg PO BID 02/17/24 [History] Vitamin C/Biotin [Hair, Skin and Nails Chew] 1 tab PO DAILY 02/17/24 [History] methocarbamoL 750 mg PO TID PRN 02/17/24 [History] Follow up Appointment(s)/Referral(s): iVdal Beaulieu MD [Primary Care Provider] - 1-2 days Víctor Landeros MD [Medical Doctor] - 2 Weeks Activity/Diet/Wound Care/Special Instructions: Keep incision clean and dry Remove dressings in 1 week after surgery unless saturated. Toe touch weightbearing with a walker May shower Internal medicine to management anticoagulation Follow-up with Dr. Landeros in 2 weeks [facility] with any questions or concerns, Discharge Disposition: TRANSFER TO SNF/ECF
== END 2024-02-21 15:26 | DRG 481 ==
LOC: EC 15:35 → 1SOBS 17:33 → 4SSUR 02-18 17:52
PROVIDERS: ADMIT Orthopaedic Surgery; ATTEND Orthopaedic Surgery
PROC: 0QS736Z Reposition Left Upper Femur with Intramedullary Internal Fixation Device, Percutaneous Approach (ICD-10-PCS; principal; 2024-02-18 08:45)
PROC: 30233N1 Transfusion of Nonautologous Red Blood Cells into Peripheral Vein, Percutaneous Approach (ICD-10-PCS; 2024-02-20)
DX: S72.22XA Displaced subtrochanteric fracture of left femur, initial encounter for closed fracture (principal); D62 Acute posthemorrhagic anemia; W19.XXXA Unspecified fall, initial encounter; X50.1XXA Overexertion from prolonged static or awkward postures, initial encounter; Y92.009 Unspecified place in unspecified non-institutional (private) residence as the place of occurrence of the external cause; E78.5 Hyperlipidemia, unspecified; E87.6 Hypokalemia; F32.A Depression, unspecified; I49.1 Atrial premature depolarization; R00.0 Tachycardia, unspecified; I35.0 Nonrheumatic aortic (valve) stenosis; I10 Essential (primary) hypertension; I65.29 Occlusion and stenosis of unspecified carotid artery; M85.80 Other specified disorders of bone density and structure, unspecified site; Z79.02 Long term (current) use of antithrombotics/antiplatelets; Z79.899 Other long term (current) drug therapy; Z95.828 Presence of other vascular implants and grafts; Z88.6 Allergy status to analgesic agent; Z88.5 Allergy status to narcotic agent
CPT/HCPCS: 36415; 71045; 73502; 80048; 80053; 82728; 83540; 83550; 85025; 85027; 85610; 85730; 86850; 86900; 86901; 86920; 93005; 93306; 99285